=== PATIENT | female | born 1945 | race Caucasian/White ===

== ENCOUNTER 2018-10-17 19:16 | Inpatient (IN) | payer OTHER ==
[2018-10-17] MEDS ORDERED: ACETAMINOPHEN 500 MG TAB ONE (20:04)
[2018-10-17] MEDS ORDERED: HYDROCODONE/CHLORPHEN 5 ML/OSYR ONE (20:04)
[2018-10-17] MEDS ORDERED: NA CHLORIDE 0.9% 2,000 ML ONE (20:04)
[2018-10-17 20:06] LABS: Absolute Lymphocytes (CBC) 0.9 K/uL (0.7-4.9); Eosinophils % 0.1 % (0-4.4); Hematocrit 33.5 % (36.0-45.0); Lymphocytes % 6.4 % (15.3-44.8); MPV 9.4 fL (7.6-11.3); Monocytes % 5.1 % (3.3-12.3); RBC Red Blood Cell Count 3.58 M/uL (3.86-4.86)
[2018-10-17 20:12] LABS: Protime INR 1.21
[2018-10-17 20:26] LABS: ALT/SGPT 23 U/L (12-78); AST/SGOT 12 U/L (15-37); Albumin 2.7 g/dL (3.4-5.0); Alkaline Phosphatase 96 U/L (45-117); BUN Blood Urea Nitrogen 51 mg/dL (7-18); Bicarbonate 20 mmol/L (21-32); Bilirubin Direct 0.2 mg/dL (0-0.2); Bilirubin Total 0.5 mg/dL (0.2-1.0); CKMB Creatine Kinase MB < 1.0 ng/mL (0.3-3.6); Creatine Phosphokinase 90 U/L (26-192); Glucose Level 212 mg/dL (74-106); Lipase 140 U/L (73-393); Potassium 3.9 mmol/L (3.5-5.1); Protein, Total 8.2 g/dL (6.4-8.2); Sodium Level 134 mmol/L (136-145)
--- NOTE | 2018-10-17 20:37 | RAD REPORT ---
EXAM DESCRIPTION: Liza Single View10/17/2018 8:12 pm CLINICAL HISTORY: cough COMPARISON: 2013 FINDINGS: The lungs appear clear of acute infiltrate. The heart is normal size IMPRESSION: No acute abnormalities displayed
[2018-10-17] MEDS ORDERED: CEFTRIAXONE/SWI 1gm 1 GM/10 ML SYR ONE (20:40)
[2018-10-17 21:15] LABS: Urine Appearance TURBID; Urine Color YELLOW
[2018-10-17 21:16] LABS: Urine Bilirubin TRACE (NEG); Urine pH 5.5 (5.0-7.0)
[2018-10-17 21:17] LABS: Urine Glucose TRACE (NEG); Urine Microscopic Reflex ORDER UMIC
[2018-10-17 21:18] LABS: Urine Blood 2+ (NEG); Urine Protein 3+ (NEG)
[2018-10-17 21:23] LABS: Urine Amorphous Sediment 3+ /HPF (NONE SEEN); Urine Bacteria LOADED /HPF (<20); Urine Culture Reflex Order NOT NEEDED
--- NOTE | 2018-10-17 21:34 | EDPHYS ---
Physician Documentation [facility] Name: Keren Hinton Age: 72 yrs Sex: Female : 1945 Arrival Date: 10/17/2018 Time: 19:18 Bed 5 Private MD: Steve Salazar ED Physician He Dickson HPI: 10/17 20:20 This 72 yrs old Female presents to ER via Wheelchair with complaints of pm1 Cough, Fever, Weakness. 20:20 The patient or guardian reports cough. Onset: The symptoms/episode began/occurred 3 pm1 week(s) ago, and became worse 2 day(s) ago. Severity of symptoms: in the emergency department the symptoms are actually worse. Modifying factors: The symptoms are alleviated by nothing, the symptoms are aggravated by Feels generalized weakness with exertion. Associated signs and symptoms: Pertinent positives: fever, sore throat, Pertinent negatives: chest pain, diarrhea, ear ache, nausea, vomiting. The patient has not experienced similar symptoms in the past. The patient has not recently seen a physician, the patient's primary care provider is Dr. Salazar. Historical: - Allergies: 19:39 No Known Allergies; la1 - Home Meds: 19:39 metformin 1,000 mg Oral tab 1 tab 2 times per day [Active]; Synthroid 125 mcg Oral tab la1 1 tab once daily [Active]; bupropion HCl 150 mg Oral Tb24 1 tab once daily [Active]; escitalopram oxalate 10 mg oral tab 1 tab once daily [Active]; atorvastatin 10 mg oral tab 1 tab once daily [Active]; losartan 25 mg oral tab 1 tab once daily [Active]; Vascepa oral [Active]; omega-3 acid ethyl esters 1 gram oral cap [Active]; 19:39 Levemir 100 unit/mL subcutaneous soln [Active]; la1 - PMHx: 19:27 Diabetes - NIDDM; hodgkins lymphoma; colon and bladder ca; sarcoma; la1 - Immunization history:: Adult Immunizations up to date. - Social history:: Smoking status: Patient/guardian denies using tobacco. - Ebola Screening: : No symptoms or risks identified at this time. ROS: 20:20 Eyes: Negative for injury, pain, redness, and discharge. pm1 20:20 Neck: Negative for injury, pain, and swelling, Cardiovascular: Negative for chest pain, palpitations, and edema. 20:20 Abdomen/GI: Negative for abdominal pain, nausea, vomiting, diarrhea, and constipation, Back: Negative for injury and pain, : Negative for injury, bleeding, discharge, and swelling, MS/Extremity: Negative for injury and deformity, Skin: Negative for injury, rash, and discoloration, Neuro: Negative for headache, weakness, numbness, tingling, and seizure. 20:20 Constitutional: Positive for body aches, fever, poor PO intake, weight loss. 20:20 ENT: Positive for sore throat, Negative for drainage from ear(s), ear pain. 20:20 Respiratory: Positive for cough, shortness of breath, Negative for sputum production. Exam: 20:20 Head/Face: Normocephalic, atraumatic. Eyes: Pupils equal round and reactive to light, pm1 extra-ocular motions intact. Lids and lashes normal. Conjunctiva and sclera are non-icteric and not injected. Cornea within normal limits. Periorbital areas with no swelling, redness, or edema. ENT: Nares patent. No nasal discharge, no septal abnormalities noted. Tympanic membranes are normal and external auditory canals are clear. Oropharynx with no redness, swelling, or masses, exudates, or evidence of obstruction, uvula midline. Mucous membranes moist. Neck: Trachea midline, no thyromegaly or masses palpated, and no cervical lymphadenopathy. Supple, full range of motion without nuchal rigidity, or vertebral point tenderness. No Meningismus. Chest/axilla: Normal chest wall appearance and motion. Nontender with no deformity. No lesions are appreciated. Respiratory: Lungs have equal breath sounds bilaterally, clear to auscultation and percussion. No rales, rhonchi or wheezes noted. No increased work of breathing, no retractions or nasal flaring. Abdomen/GI: Soft, non-tender, with normal bowel sounds. No distension or tympany. No guarding or rebound. No evidence of tenderness throughout. Back: No spinal tenderness. No costovertebral tenderness. Full range of motion. Skin: Warm, dry with normal turgor. Normal color with no rashes, no lesions, and no evidence of cellulitis. MS/ Extremity: Pulses equal, no cyanosis. Neurovascular intact. Full, normal range of motion. 20:20 Constitutional: The patient appears in no acute distress, alert, awake, comfortable, non-diaphoretic, well developed, well hydrated, well groomed, well nourished, febrile. 20:20 Cardiovascular: Rate: tachycardic, Rhythm: regular, Pulses: no pulse deficits are appreciated, Heart sounds: normal, Edema: is not appreciated. 20:20 Neuro: Orientation: is normal, Motor: is normal, moves all fours, Sensation: is normal, no obvious gross deficits. Vital Signs: 19:27 BP 94 / 37; Pulse 133; Resp 20; Temp 101.3(O); Pulse Ox 96% on R/A; Weight 61.23 kg; la1 Height 5 ft. 5 in. (165.10 cm); 20:00 BP 143 / 55; Pulse 118; Resp 14; Pulse Ox 97% on R/A; lp1 20:30 BP 119 / 56; Pulse 110; Resp 16; Pulse Ox 97% on R/A; lp1 21:08 BP 97 / 52; Pulse 104; Resp 17; Temp 99.2(O); Pulse Ox 97% on R/A; Pain 0/10; lp1 21:52 BP 99 / 54; Pulse 105; Resp 20; Pulse Ox 95% on R/A; lp1 22:55 BP 94 / 56; Pulse 95; Resp 19; Temp 98(O); Pulse Ox 97% on R/A; Pain 0/10; lp1 23:30 BP 92 / 48; Pulse 96; Resp 20; Pulse Ox 96% on R/A; lp1 10/18 00:00 BP 92 / 50; Pulse 95; Resp 13; Pulse Ox 97% on R/A; lp1 00:30 BP 97 / 56; Pulse 92; Resp 18; Pulse Ox 97% on R/A; Pain 0/10; lp1 10/17 19:27 Body Mass Index 22.46 (61.23 kg, 165.10 cm) la1 MDM: 10/17 19:38 Patient medically screened. pm1 21:29 Data reviewed: vital signs. Data interpreted: Pulse oximetry: on room air is 97 %. pm1 Interpretation: normal. 21:29 Physician consultation: Keisha Doyle MD was called at 21:30, was contacted at 21:30, pm1 in the emergency department to see patient at 21:30. 10/17 19:40 Order name: Urine Culture pm10/17 19:40 Order name: Basic Metabolic Panel pm10/17 19:40 Order name: Blood Culture Adult (2) pm10/17 19:40 Order name: CBC with Diff; Complete Time: 20:18 pm10/17 19:40 Order name: Ckmb; Complete Time: 20:39 pm10/17 19:40 Order name: CPK; Complete Time: 20:39 pm10/17 19:40 Order name: Lactate; Complete Time: 20:55 pm10/17 19:40 Order name: LFT's; Complete Time: 20:39 pm10/17 19:40 Order name: Lipase; Complete Time: 20:39 pm10/17 19:40 Order name: Procalcitonin; Complete Time: 21:22 pm10/17 19:40 Order name: Protime (+inr); Complete Time: 20:18 pm10/17 19:40 Order name: Ptt, Activated; Complete Time: 20:18 pm10/17 19:40 Order name: Troponin (emerg Dept Use Only); Complete Time: 20:25 pm10/17 19:40 Order name: Chest Single View XRAY; Complete Time: 20:39 pm10/17 19:40 Order name: Accucheck; Complete Time: 20:00 pm10/17 19:40 Order name: Flu; Complete Time: 20:39 pm10/17 19:40 Order name: Strep; Complete Time: 20:39 pm10/17 19:43 Order name: Urine Culture EDWI 10/17 19:43 Order name: Basic Metabolic Panel; Complete Time: 20:39 EDMS 10/17 20:07 Order name: Glucose, Ancillary Testing; Complete Time: 20:08 EDMS 10/17 20:32 Order name: Throat Culture EDWI 10/17 20:47 Order name: Urinalysis; Complete Time: 21:25 lp10/17 21:19 Order name: Urine Microscopic Only; Complete Time: 21:25 EDMS 10/17 22:16 Order name: CT Chest Wo Con pm10/17 23:19 Order name: Lactate Sepsis 2 HR Follow-up; Complete Time: 23:42 EDMS 10/17 19:40 Order name: Cardiac monitoring; Complete Time: 20:00 pm1 10/17 19:40 Order name: EKG - Nurse/Tech; Complete Time: 20:01 pm1 10/17 19:40 Order name: IV Saline Lock - Large Bore; Complete Time: 20:00 pm1 10/17 19:40 Order name: Labs collected and sent; Complete Time: 20:00 pm1 10/17 19:40 Order name: O2 Per Protocol; Complete Time: 20:00 pm10/17 19:40 Order name: O2 Sat Monitoring; Complete Time: 20:00 pm1 10/17 19:40 Order name: Urine Dipstick-Ancillary (obtain specimen); Complete Time: 21:51 pm1 EC:06 Rate is 124 beats/min. Rhythm is regular, Sinus tachycardia with Right bundle branch pm1 block. No Q waves. T waves are Normal. No ST changes noted. Administered Medications: 19:50 Drug: NS 0.9% (30 ml/kg) 30 ml/kg Route: IV; Rate: bolus; Site: right antecubital; lp1 19:50 Drug: Tussionex Pennkinetic ER 5 ml Route: PO; lp1 20:47 Follow up: Response: Marked relief of symptoms lp1 19:50 Drug: Tylenol 1000 mg Route: PO; lp1 21:08 Follow up: Response: Temperature is decreased lp1 20:25 Drug: Rocephin 1 grams Route: IV; Rate: calculated rate; Site: right antecubital; lp1 20:49 Follow up: Response: No adverse reaction; IV Status: Completed infusion; IV Intake: [id number] 20:48 Drug: NS 0.9% (30 ml/kg) 30 ml/kg Route: IV; Rate: bolus; Site: right antecubital; lp1 21:51 Follow up: IV Status: Completed infusion; IV Intake: 2000ml lp1 Point of Care Testing: Blood Glucose: 19:56 Blood Glucose: 231 mg/dL; oe Ranges: Critical Glucose Levels:Adult <50 mg/dl or >400 mg/dl <40 mg/dl or >180 mg/dl Disposition: 10/18 04:28 Co-signature as Attending Physician, He Dickson MD. Disposition: 10/17/18 21:33 Hospitalization ordered by Keisha Doyle for Inpatient Admission. Preliminary diagnosis are Urosepsis, Acute kidney injury, Dehydration, Acute upper respiratory infection, unspecified. - Bed requested for Intensive Care Unit. - Status is Inpatient Admission. lp1 - Condition is Stable. - Problem is new. - Symptoms have improved. UTI on Admission? Yes Signatures: Dispatcher [employer] EDWI Kaitlin Rodriguez RN RN lp1 Toan Grigsby RN RN wa1 Mara Hickey RN RN Ilir Cervantes, SPECIAL SERVICES COORDINATOR SPECIAL SERVICES COORDINATOR pm1 He Dickson MD MD Corrections: (The following items were deleted from the chart) 10/17 19:39 19:27 Allergies: No Known Allergies; wa1 la1 21:14 19:44 UA MICROSCOPIC+U.LAB.BRZ ordered. EDWI EDWI 22:18 21:33 Hospitalization Ordered by Keisha Doyle MD for Inpatient Admission. Preliminary pm1 diagnosis is Urosepsis; Acute kidney injury; Dehydration; Acute upper respiratory infection, unspecified. Bed requested for Telemetry/MedSurg (Inpatient). Status is Inpatient Admission. Condition is Stable. Problem is new. Symptoms have improved. UTI on Admission? Yes. pm1 22:50 22:18 10/17/2018 21:33 Hospitalization Ordered by Keisha Doyle MD for Inpatient Admission. Preliminary diagnosis is Urosepsis; Acute kidney injury; Dehydration; Acute upper respiratory infection, unspecified. Bed requested for Intensive Care Unit. Status is Inpatient Admission. Condition is Stable. Problem is new. Symptoms have improved. UTI on Admission? Yes. pm1 10/18 00:40 10/17 22:50 10/17/2018 21:33 Hospitalization Ordered by Keisha Doyle MD for Inpatient lp1 Admission. Preliminary diagnosis is Urosepsis; Acute kidney injury; Dehydration; Acute upper respiratory infection, unspecified. Bed requested for Intensive Care Unit. Status is Inpatient Admission. Condition is Stable. Problem is new. Symptoms have improved. UTI on Admission? Yes.
--- NOTE | 2018-10-17 21:34 | ER ---
Nurse's Notes [facility] Name: Keren Hinton Age: 72 yrs Sex: Female : 1945 Arrival Date: 10/17/2018 Time: 19:18 Bed 5 Private MD: Steve Salazar Diagnosis: Urosepsis;Acute kidney injury;Dehydration;Acute upper respiratory infection, unspecified Presentation: 10/17 19:23 Presenting complaint: Patient states: Persistent cough for three weeks, SOB, decreased la1 appetite, malaise, fatigue. Transition of care: patient was not received from another setting of care. Onset of symptoms was October 17, 2018. Risk Assessment: Do you want to hurt yourself or someone else? Patient reports no desire to harm self or others. Initial Sepsis Screen: Does the patient meet any 2 criteria? Yes Does the patient have a suspected source of infection? Yes: Productive cough/pneumonia. Care prior to arrival: None. 19:23 Method Of Arrival: Wheelchair la1 19:23 Acuity: JOSEPH 2 la1 Historical: - Allergies: 19:39 No Known Allergies; la1 - Home Meds: 19:39 metformin 1,000 mg Oral tab 1 tab 2 times per day [Active]; Synthroid 125 mcg Oral tab la1 1 tab once daily [Active]; bupropion HCl 150 mg Oral Tb24 1 tab once daily [Active]; escitalopram oxalate 10 mg oral tab 1 tab once daily [Active]; atorvastatin 10 mg oral tab 1 tab once daily [Active]; losartan 25 mg oral tab 1 tab once daily [Active]; Vascepa oral [Active]; omega-3 acid ethyl esters 1 gram oral cap [Active]; 19:39 Levemir 100 unit/mL subcutaneous soln [Active]; la1 - PMHx: 19:27 Diabetes - NIDDM; hodgkins lymphoma; colon and bladder ca; sarcoma; la1 - Immunization history:: Adult Immunizations up to date. - Social history:: Smoking status: Patient/guardian denies using tobacco. - Ebola Screening: : No symptoms or risks identified at this time. Screenin:22 Abuse screen: Denies threats or abuse. Denies injuries from another. Nutritional lp1 screening: No deficits noted. Tuberculosis screening: No symptoms or risk factors identified. Fall Risk Total Gant Fall Scale indicates High Risk Score (45 or more points). Fall prevention measures have been instituted. Family Present and informed to notify staff if the need to leave the bedside As available patient and family educated on Fall Prevention Program and Strategies. Assessment: 20:00 General: Appears in no apparent distress. ill, Behavior is calm, cooperative, lp1 appropriate for age, Reports fever for fatigue for. Pain: Denies pain. Neuro: Level of Consciousness is awake, alert, obeys commands, Oriented to person, place, time, situation, Reports weakness generalized. Cardiovascular: Patient's skin is warm and dry. Rhythm is sinus tachycardia. Respiratory: Reports shortness of breath cough that is productive, Airway is patent Respiratory effort is even, Respiratory pattern is regular, Breath sounds are clear bilaterally. Onset: The symptoms/episode began/occurred gradually, the patient has mild shortness of breath. GI: Abdomen is non-distended. : No signs and/or symptoms were reported regarding the genitourinary system. EENT: No signs and/or symptoms were reported regarding the EENT system. Derm: Skin is intact, is thin, Skin is dry, Skin is pale, Skin temperature is warm. Musculoskeletal: No deficits noted. 20:30 Reassessment: Assisted patient to bathroom at this time for urine specimen. lp1 21:30 Reassessment: Patient appears in no apparent distress at this time. Patient and/or lp1 family updated on plan of care and expected duration. Pain level reassessed. 22:30 Reassessment: Patient appears in no apparent distress at this time. No changes from lp1 previously documented assessment. 23:30 Reassessment: Patient and daughter aware of pending admission to ICU. lp1 10/18 00:00 Reassessment: Patient appears in no apparent distress at this time. Patient resting, lp1 eyes closed, respirations unlabored. Vital Signs: 10/17 19:27 BP 94 / 37; Pulse 133; Resp 20; Temp 101.3(O); Pulse Ox 96% on R/A; Weight 61.23 kg; la1 Height 5 ft. 5 in. (165.10 cm); 20:00 BP 143 / 55; Pulse 118; Resp 14; Pulse Ox 97% on R/A; lp1 20:30 BP 119 / 56; Pulse 110; Resp 16; Pulse Ox 97% on R/A; lp1 21:08 BP 97 / 52; Pulse 104; Resp 17; Temp 99.2(O); Pulse Ox 97% on R/A; Pain 0/10; lp1 21:52 BP 99 / 54; Pulse 105; Resp 20; Pulse Ox 95% on R/A; lp1 22:55 BP 94 / 56; Pulse 95; Resp 19; Temp 98(O); Pulse Ox 97% on R/A; Pain 0/10; lp1 23:30 BP 92 / 48; Pulse 96; Resp 20; Pulse Ox 96% on R/A; lp1 10/18 00:00 BP 92 / 50; Pulse 95; Resp 13; Pulse Ox 97% on R/A; lp1 00:30 BP 97 / 56; Pulse 92; Resp 18; Pulse Ox 97% on R/A; Pain 0/10; lp1 10/17 19:27 Body Mass Index 22.46 (61.23 kg, 165.10 cm) la1 ED Course: 10/17 19:18 Patient arrived in ED. as 19:19 Steve Salazar MD is Private Physician. as 19:26 Triage completed. la1 19:26 Arm band placed on left wrist. la1 19:32 Ilir Cervantes, JOE is PHCP. pm1 19:32 He Dickson MD is Attending Physician. pm1 19:59 Kaitlin Rodriguez, LANIE is Primary Nurse. lp1 20:00 Patient has correct armband on for positive identification. Placed in gown. Bed in low lp1 position. Call light in reach. personnel monitor on. Pulse ox on. NIBP on. 20:12 Chest Single View XRAY In Process Unspecified. EDMS 20:46 Notified Nurse Practitioner and/or Physician Product Picker of a critical lab result(s), fc Lactate 3.3. 20:51 No provider procedures requiring assistance completed. lp1 21:32 Keisha Doyle MD is Hospitalizing Provider. pm1 21:50 Patient admitted, IV remains in place. lp1 22:50 CT completed. Patient tolerated procedure well. Patient moved to CT via stretcher. eh Patient moved back from CT. Administered Medications: 19:50 Drug: NS 0.9% (30 ml/kg) 30 ml/kg Route: IV; Rate: bolus; Site: right antecubital; lp1 19:50 Drug: Tussionex Pennkinetic ER 5 ml Route: PO; lp1 20:47 Follow up: Response: Marked relief of symptoms lp1 19:50 Drug: Tylenol 1000 mg Route: PO; lp1 21:08 Follow up: Response: Temperature is decreased lp1 20:25 Drug: Rocephin 1 grams Route: IV; Rate: calculated rate; Site: right antecubital; lp1 20:49 Follow up: Response: No adverse reaction; IV Status: Completed infusion; IV Intake: [id number] 20:48 Drug: NS 0.9% (30 ml/kg) 30 ml/kg Route: IV; Rate: bolus; Site: right antecubital; lp1 21:51 Follow up: IV Status: Completed infusion; IV Intake: 2000ml lp1 Point of Care Testing: Blood Glucose: 19:56 Blood Glucose: 231 mg/dL; oe Ranges: Intake: 20:49 IV: 10ml; Total: 10ml. lp1 21:51 IV: 2000ml; Total: 2010ml. lp1 21:52 IV: 2000ml (IV Fluid); Total: 4010ml. lp1 Outcome: 21:33 Decision to Hospitalize by Provider. pm1 21:50 Condition: stable lp1 21:50 Instructed on the need for admit. 10/18 00:00 Admitted to ICU accompanied by nurse, accompanied by tech, via stretcher, room 2, on lp1 monitor, with chart, Report called to LANIE Carney 00:40 Patient left the ED. lp1 Signatures: Dispatcher [employer] EDLauri Campos Felicia, RN RN fc Martinez, Amelia as Pena, Laura, RN RN lp1 Toan Grigsby RN RN la1 Ilir Cervantes, JOE STORES DESPATCH HAND pm1 Teto Prince oe Corrections: (The following items were deleted from the chart) 10/17 19:39 19:27 Allergies: No Known Allergies; md1 la
--- NOTE | 2018-10-17 22:37 | P.HP ---
Certification for Inpatient Patient admitted to: Inpatient With expected LOS: >2 Midnights Practitioner: I am a practitioner with admitting privileges, knowledge of patient current condition, hospital course, and medical plan of care. Services: Services provided to patient in accordance with Admission requirements found in Title 42 Section 412.3 of the Code of Federal Regulations Patient History Date of Service: 10/17/18 Reason for admission: sepsis History of Present Illness: Ms Hinton is a 72 years old woman with history of Hodgkins lymphoma, CKD, Colon cancer, HTN, DM II, who start about 3 weeks with upper respiratory symptoms. She had productive cough with whitish secretions. She was gradually getting worse over the time, she had poor appetite and also loss some weight in the last week. The patient got even worse in the last 48 Hr, denied fever but had chills. Lab work shows leukocytosis, elevated lactate and procalcitonin. Her creatinine was elevated as well, abnormal UA consistent with UTI. CXR shows no acute abnormalities. She presented to ED febrile, max temp was 101.3 F, BP on the lower side, tachycardic. At my encounter, her BP was 97/48, after received about 3 L or NS already. - Past Medical/Surgical History -: DM II -: HTN -: HX of Hodgkins Lymphoma -: Colon cancer -: sarcoma Past Surgical History: Reviewed- Non-Contributory - Family History Family History: Reviewed- Non-Contributory - Social History Smoking Status: Former smoker Alcohol use: No CD- Drugs: No Place of Residence: Home Review of Systems 10-point ROS is otherwise unremarkable Physical Examination - Physical Exam General: Alert, In no apparent distress, Other (pale) HEENT: Atraumatic, PERRLA, Mucous membr. moist/pink, EOMI, Sclerae nonicteric Neck: Supple, 2+ carotid pulse no bruit, No LAD, Without JVD or thyroid abnormality Respiratory: Normal air movement, Diminished (left base) Cardiovascular: Regular rate/rhythm, Normal S1 S2 Gastrointestinal: Normal bowel sounds, No tenderness Musculoskeletal: No tenderness Integumentary: No rashes Neurological: Normal speech, Normal strength at 5/5 x4 extr, Normal tone, Normal affect Lymphatics: No axilla or inguinal lymphadenopathy - Studies Laboratory Data (last 24 hrs) 10/17/18 19:50: PT 14.2 H, INR 1.21, APTT 30.1 10/17/18 19:50: WBC 13.6 H, Hgb 11.4 L, Hct 33.5 L, Plt Count 221 10/17/18 19:50: Sodium 134 L, Potassium 3.9, BUN 51 H, Creatinine 3.07 H, Glucose 212 H, Total Bilirubin 0.5, AST 12 L, ALT 23, Alkaline Phosphatase 96, Lipase 140 Microbiology Data (last 24 hrs): 10/17/18 19:58 Throat Group A Streptococcus Rapid Screen - Final 10/17/18 19:58 Nasopharnyx Influenza Type A Antigen Screen - Final 10/17/18 19:58 Nasopharnyx Influenza Type B Antigen Screen - Final Assessment and Plan - Problems (Diagnosis) (1) Sepsis Current Visit: Yes Status: Acute Qualifiers: Sepsis type: sepsis due to unspecified organism Qualified Code(s): A41.9 - Sepsis, unspecified organism (2) UTI (urinary tract infection) Current Visit: Yes Status: Acute Qualifiers: Urinary tract infection type: acute cystitis Hematuria presence: without hematuria Qualified Code(s): N30.00 - Acute cystitis without hematuria (3) Acute bronchitis Current Visit: Yes Status: Acute Qualifiers: Bronchitis organism: unspecified organism Qualified Code(s): J20.9 - Acute bronchitis, unspecified (4) Diabetes mellitus Current Visit: Yes Status: Acute Qualifiers: Diabetes mellitus type: type 2 Diabetes mellitus alf insulin use: with alf use Diabetes mellitus complication status: with other specified complication Qualified Code(s): E11.69 - Type 2 diabetes mellitus with other specified complication; Z79.4 - custodial (current) use of insulin - Plan Will admit Ms Hinton to ICU due to sepsis, BP is on the lower side, she needs close monitoring. Will start empiric broad spectrum antibiotics for UTI and possible respiratory infection. Pending CT chest. Continue IV fluids. Eventually will need vasopressors. - Advance Directives Does patient have a Living Will: No Does patient have a Durable POA for Healthcare: No - Code Status/Comfort Care Code Status Assessed: Yes Code Status: Full Code Critical Care: Yes (30)
[2018-10-17] MEDS ORDERED: ACETAMINOPHEN 500 MG TAB PO PRN (23:18)
[2018-10-17] MEDS ORDERED: ONDANSETRON 4 MG/2 ML VIAL IV PRN (23:18)
[2018-10-17] MEDS ORDERED: ALBUTEROL 2.5 MG/3 ML NEB SOL NEB PRN (23:18)
[2018-10-17] MEDS ORDERED: IPRATROPIUM BROM 0.5MG/2.5ML NEB PRN (23:18)
[2018-10-17] MEDS: NA CHLORIDE 0.9% 1,000 ML IV SCH (23:35)
[2018-10-18] MEDS: INSULIN -REGULAR HUMAN 50 UNIT/0.5 ML ML SQ SCH ×5 (02:25→22:57)
[2018-10-18] MEDS: guaiFENesin 100 MG/5 ML UCUP PO PRN (04:00)
[2018-10-18 05:26] LABS: Absolute Lymphocytes (CBC) 0.9 K/uL (0.7-4.9); Basophils % 0.3 % (0-1.3); Eosinophils % 0.6 % (0-4.4); Hematocrit 30.2 % (36.0-45.0); Lymphocytes % 8.6 % (15.3-44.8); MPV 9.3 fL (7.6-11.3); Monocytes % 3.5 % (3.3-12.3); RBC Red Blood Cell Count 3.21 M/uL (3.86-4.86)
[2018-10-18 05:44] LABS: Potassium 4.2 mmol/L (3.5-5.1)
[2018-10-18 06:09] LABS: Blood Morphology Comment NOT SEEN (NOT SEEN); Platelet Estimate ADEQ
[2018-10-18] MEDS ORDERED: INSULIN -REGULAR HUMAN 50 UNIT/0.5 ML ML SQ SCH (07:30)
[2018-10-18] MEDS: NA CHLORIDE 0.9% 1,000 ML IV SCH ×3 (07:46→22:30)
[2018-10-18] MEDS ORDERED: GLUCAGON 1 MG/VIAL IM PRN (08:52)
[2018-10-18] MEDS ORDERED: D50W 25 GM/50 ML SYRINGE IV PRN (08:52)
[2018-10-18] MEDS ORDERED: CEFTRIAXONE 1 GM/NS 50 ML 1 GM/50 ML BAG IV SCH (09:00)
[2018-10-18] MEDS ORDERED: INSULIN DETEMIR 54 UNIT SQ SCH (09:00)
[2018-10-18] MEDS: HEPARIN 5000 UNIT/ML 1 ML VIAL SQ SCH ×2 (09:04→22:57)
[2018-10-18] MEDS: CEFTRIAXONE/SWI 1gm 1 GM/10 ML SYR IVP SCH (09:05)
[2018-10-18] MEDS: AZITHROMYCIN IV 500 MG in NA CHLORIDE 0.9% 250 ML IVPB SCH (09:05)
[2018-10-18] MEDS: BUPROPION HCL XL 150 MG TAB PO SCH (09:05)
[2018-10-18] MEDS: INSULIN GLARGINE 100 UNITS/ML SQ SCH ×2 (09:05→22:56)
[2018-10-18] MEDS: ESCITALOPRAM 20 MG TAB PO SCH (09:05)
--- NOTE | 2018-10-18 10:01 | EKG ---
Test Date: 2018-10-17 Test Time: 19:58:47 Food Consultant: ABDIRAHMAN MEASUREMENT RESULTS: Intervals: Rate: 124 MD: 150 QRSD: 106 QT: 334 QTc: 479 [place]: P: 65 MD: 150 QRS: 45 T: 24 INTERPRETIVE STATEMENTS: Sinus tachycardia Incomplete right bundle branch block Borderline ECG Compared to ECG 01/20/2010 00:36:30 Incomplete right bundle-branch block now present Sinus rhythm no longer present Electronically Signed On 10-18-18 10:00:36 CDT by Christian Haro
--- NOTE | 2018-10-18 14:10 | P.CNS ---
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 pt presented for weakness and flu like symptoms in ER hypotensive and t 101.3 pt was complaining of productive cough , CXR with no abnormalities Cr was elevated to 3.1 , UA +ve for protein and blood, pt denied NSAID and contrast exposure , recently switched from Lovaza to another Vascpa No chest pain, palpitation, diarrhea or constipation , Allergies No Known Allergies Allergy (Unverified 10/17/18 23:18) Home Medications: Atorvastatin Calcium [Lipitor] 10 mg PO BEDTIME 10/18/18 Bupropion HCl [Wellbutrin Xl] 150 mg PO DAILY 10/18/18 Escitalopram [Lexapro] 10 mg PO DAILY 10/18/18 Icosapent Ethyl [Vascepa] 2 cap PO BID 10/18/18 Insulin Detemir [Levemir Flextouch] 54 units SQ BID 10/18/18 Levothyroxine [Synthroid*] 0.125 mg PO DAILY 10/18/18 Losartan Potassium 1 tab PO DAILY 10/18/18 Metformin HCl 1,000 mg PO BID 10/18/18 - Past Medical/Surgical History Diabetic: Yes -: DM II -: HTN -: HX of Hodgkins Lymphoma -: Colon cancer -: sarcoma -: tubal ligation -: hysterectomy -: sarcoma removed left upper back -: breat augmentation - Social History Alcohol use: Yes CD- Drugs: No Caffeine use: Yes Place of Residence: Home Physical Examination Temp Pulse Resp BP Pulse Ox 97.4 F 125 H 35 H 107/52 L 97 10/18/18 04:00 10/18/18 11:00 10/18/18 11:00 10/18/18 11:00 10/18/18 08:00 General: Oriented x3, Mild distress HEENT: Atraumatic Neck: Supple, JVD not distended, Without JVD or thyroid abnormality Respiratory: Clear to auscultation bilaterally, Normal air movement Cardiovascular: No edema, Normal pulses, Regular rate/rhythm, No gallops, No rubs, No murmurs Gastrointestinal: Normal bowel sounds, Soft and benign Musculoskeletal: No swelling Laboratory Data (last 24 hrs) 10/17/18 19:50: PT 14.2 H, INR 1.21, APTT 30.1 10/17/18 19:50: WBC 13.6 H, Hgb 11.4 L, Hct 33.5 L, Plt Count 221 10/17/18 19:50: Sodium 134 L, Potassium 3.9, BUN 51 H, Creatinine 3.07 H, Glucose 212 H, Total Bilirubin 0.5, AST 12 L, ALT 23, Alkaline Phosphatase 96, Lipase 140 - Problems (1) GUMARO (acute kidney injury) Current Visit: Yes Status: Acute (2) Diabetes mellitus Current Visit: Yes Status: Chronic Qualifiers: Diabetes mellitus type: type 2 Diabetes mellitus tank terminal gauger insulin use: with longterm use Diabetes mellitus complication status: with other specified complication Qualified Code(s): E11.69 - Type 2 diabetes mellitus with other specified complication; Z79.4 - long term care social worker (current) use of insulin Conclusions/Impression: GUMARO on CKD III Likely due to septic GN and prerenal azotemia + ARB off ARB will order renal US and UPC will order full serology W/U Cont IVF renal dose meds avoid nephrotoxic meds no need for renal replacement therapy at this time , but pt might require HD if RFt cont to worse Discussed with Pt Septic shock with bandemia Ucx +ve Cont Abx HTN off BP meds cont IVF DM off metformin Cont insulin
[2018-10-18 14:22] LABS: Uric Acid 6.9 mg/dL (2.6-6.0)
--- NOTE | 2018-10-18 18:04 | PN ---
Date of Progress Note: 10/18/2018 Subjective: The patient is seen and examined. Chart reviewed, and case discussed with RN. The patient is doing better. Still tachycardic. Medications: List reviewed. Code status: Full Physical Examination: Vital Signs: T-max is 101.3, T current is 97.4, heart rate 126, respirations 20 , blood pressure 122/51, O2 97% on room air. General: Awake, alert, oriented x3. Elderly female, in some mild distress. CV: S1, S2. Sinus tachycardia. Peripheral pulses present. Respiratory: Moving air well bilaterally. No wheezing or stridor. Gastrointestinal: Abdomen is soft, nontender, nondistended. Positive bowel sounds. Extremities: No clubbing, cyanosis, or edema. No calf tenderness. Neuro: Cranial nerves 2 through 12 intact grossly. No focal neurological deficit. Speech is normal. Skin: No rashes. Normal skin turgor. Laboratory Data: Sodium 141, potassium 4.2 chloride 111, CO2 22, BUN 55, creatinine 3.11, glucose 247, calcium 7.7, magnesium 2.1. WBC 10.6, H and H 10.6/30.2, platelets 181, neutrophils 87%, bands 9. Cultures; urine culture growing 100,000 colony-forming units of 4+ gram-negative rods. Blood cultures are pending. CT scan of the chest shows normal contrast-enhanced CT scan of the chest. Mild fibrosis and/or atelectasis in the dependent portions of the lungs and lingula. Assessment And Plan: 1. Sepsis secondary to gram-negative rods, secondary to urinary tract infection, improving. The patient is still tachycardic. Blood pressure is more stable. We will continue with IV antibiotics. Follow up on final culture results. 2. Acute cystitis without hematuria secondary to gram-negative rods. We will follow up on ID and sensitivity. Continue IV antibiotics. 3. Acute bronchitis. CT scan of the chest does show some fibrosis and/or atelectasis. No infiltrates. We will start on incentive spirometer. 4. Diabetes mellitus type 2 with long-term use of insulin with hyperglycemia. We will continue sliding scale insulin. Monitor blood glucose levels. 5. History of Hodgkin lymphoma, colon cancer and sarcoma. 6. Deep venous thrombosis prophylaxis with Lovenox. 7. Acute on chronic kidney disease. Kidney functions elevated to 3.11, trending up. Baseline seems to be around 1.6. We will consult the patient's Nephrology. Avoid NSAIDs. Continue with IV fluids. /FAIZAN Voice ID: [id number] Report ID: [id number] MTDD
--- NOTE | 2018-10-18 20:19 | RAD REPORT ---
EXAM DESCRIPTION: US - Renal Ultrasound-Complete - 10/18/2018 8:07 pm CLINICAL HISTORY: GUMARO Flank pain COMPARISON: <Comparisons> FINDINGS: Both kidneys are normal in size, shape and echotexture. The right kidney measures 12.1 x 6.3 x 5.3 cm. No hydronephrosis, focal mass or perinephric fluid. Sm all parapelvic cyst present. The left kidney measures 12.4 x 6.1 x 5.2 cm. No hydronephrosis, focal mass or perinephric fluid. Sma ll parapelvic cyst present. The urinary bladder is incompletely distended without gross abnormality seen. IMPRESSION: Unremarkable renal sonogram.
[2018-10-18] MEDS: ATORVASTATIN 10 MG TAB PO SCH (22:55)
[2018-10-19 04:44] LABS: Absolute Lymphocytes (CBC) 0.6 K/uL (0.7-4.9); Basophils % 0.2 % (0-1.3); Eosinophils % 0.8 % (0-4.4); Hematocrit 26.8 % (36.0-45.0); Lymphocytes % 5.9 % (15.3-44.8); MPV 9.2 fL (7.6-11.3); Monocytes % 7.2 % (3.3-12.3); RBC Red Blood Cell Count 2.87 M/uL (3.86-4.86)
[2018-10-19] MEDS: LEVOTHYROXINE SOD 0.125 MG TAB PO SCH (04:56)
[2018-10-19 05:14] LABS: Albumin 2.1 g/dL (3.4-5.0); Bilirubin Total 0.3 mg/dL (0.2-1.0); Potassium 3.4 mmol/L (3.5-5.1); Protein, Total 6.6 g/dL (6.4-8.2)
[2018-10-19 06:47] LABS: Rheumatoid Factor NEG (NEG)
[2018-10-19] MEDS ORDERED: POTASSIUM CL SA 10 MEQ TAB PO ONE (07:00)
[2018-10-19 07:08] LABS: Urine Protein/Creatinine Ratio 2.21 ratio (<0.15)
[2018-10-19] MEDS: INSULIN -REGULAR HUMAN 50 UNIT/0.5 ML ML SQ SCH ×4 (07:30→21:00)
[2018-10-19] MEDS: HEPARIN 5000 UNIT/ML 1 ML VIAL SQ SCH ×2 (09:20→21:41)
[2018-10-19] MEDS: CEFTRIAXONE/SWI 1gm 1 GM/10 ML SYR IVP SCH (09:28)
[2018-10-19] MEDS: ESCITALOPRAM 20 MG TAB PO SCH (09:28)
[2018-10-19] MEDS: INSULIN GLARGINE 100 UNITS/ML SQ SCH ×2 (09:29→21:00)
--- NOTE | 2018-10-19 11:30 | RAD REPORT ---
EXAM DESCRIPTION: CT chest without IV contrast CLINICAL HISTORY: 72-year-old female with cough and fever TECHNIQUE: Axial CT imaging of the chest was performed without the administration of intravenous c ontrast. Sagittal and coronal reconstructed images were then performed. The CT study is performed acc ording to ALARA (as low as reasonably achievable) or ALARA/IMAGE GENTLY, with automatic adjustment of mA and/or kV according to patient size. Performed on: 10/17/2018 at 10:45 PM COMPARISON: None. FINDINGS: CT CHEST: Lungs: The lungs are well expanded and are grossly clear. There is mild fibrosis and/or atelectasis i n the dependent portions of the lungs and lingula. There are no pleural effusions. There is no eviden ce of a pneumothorax. No dense airspace consolidation is identified Heart: The heart is normal in size. There is no pericardial effusion. Mediastinum: The mediastinum is unremarkable. The mediastinal vessels are normal in caliber and con tour. There are minimal atherosclerotic calcifications along the thoracic aorta. No significant coron kamar artery calcifications are identified. Bones: No acute osseous abnormalities are identified. There are chronic mild to moderate degenerative changes of the thoracic spine. Soft tissues: No acute soft tissue abnormalities are identified. There are peripherally calcified rere ateral prepectoral breast implants. Lymphadenopathy: No pathologic hilar, mediastinal or axillary lymphadenopathy is identified. Upper abdomen: No acute abnormalities are identified within the visualized portions of the upper abdo men. There is a very small hiatal hernia. IMPRESSION: 1. Normal contrast enhanced CT scan of the chest 2. Mild fibrosis and/or atelectasis in the dependent portions of the lungs and lingula. Electronically signed by: Antonella Grove DO 10/17/2018 11:20 PM CDT Due to temporary technical issues with the PACS/Fluency reporting system, reports are being signed by the in house radiologist as a courtesy to ensure prompt reporting. The interpreting radiologist is f ully responsible for the content of the report.
[2018-10-19] MEDS: BUPROPION HCL XL 150 MG TAB PO SCH (11:50)
[2018-10-19] MEDS: ICOSAPENT ETHYL 1 GM CAP PO SCH ×2 (11:51→21:00)
[2018-10-19] MEDS: AZITHROMYCIN IV 500 MG in NA CHLORIDE 0.9% 250 ML IVPB SCH (11:51)
[2018-10-19] MEDS: NA CHLORIDE 0.9% 1,000 ML IV SCH (11:54)
[2018-10-19] MEDS: guaiFENesin 100 MG/5 ML UCUP PO PRN ×2 (17:37→21:43)
[2018-10-19] MEDS: ATORVASTATIN 10 MG TAB PO SCH (21:41)
--- NOTE | 2018-10-20 03:22 | PN ---
Date of Progress Note: 10/19/2018 Chief Complaint: Chronic kidney disease, stage 3. The patient came to the hospital because of weakness, flu-like symptoms. She was hypotensive and she had high-grade fever. She was complaining of productive cough. She was found to have acute kidney injury on chronic kidney disease, nonoliguric, moderately severe to severe associated with renal hypo perfusion and hypovolemia. The patient was found to have creatinine of 3.1. Urinalysis showed prote inuria and positive blood. She denies nonsteroidal anti-inflammatory medication. Denies contrast ex posure. Review of Systems: Today, the patient denies fever, chills. Denies nausea, vomiting. Physical Examination: Lungs: Clear to auscultation bilaterally. Heart: S1, S2. Abdomen: Soft, benign. Extremities: Slight edema. Impression: Acute on chronic kidney injury. BUN 51, creatinine 3.07. Electrolytes as follows: Sod ium 134, potassium 3.9. The patient was taken off metformin. The patient is not a candidate for met formin. Continue to monitor metabolic clearance. Plan: 1.Check ultrasound to rule out hydronephrosis. 2.Avoid nephrotoxic medication. Continue IV fluids to treat acute kidney injury. Septic shock with bandemia. Continue antibiotics. Adjust antibiotic dose to renal function. 3.Chronic kidney disease secondary to diabetes and hypertension. The patient will continue insulin. The patient was taken off metformin. She is not a candidate for metformin due to chronic kidney disease and acute kidney injur yShantanu CABELLO/MODGogo Voice ID: [id number] Report ID: [id number]
[2018-10-20] MEDS: LEVOTHYROXINE SOD 0.125 MG TAB PO SCH (06:46)
[2018-10-20] MEDS: NA CHLORIDE 0.9% 1,000 ML IV SCH ×2 (06:48→17:00)
[2018-10-20 06:55] LABS: ALT/SGPT 78 U/L (12-78); AST/SGOT 83 U/L (15-37); BUN Blood Urea Nitrogen 33 mg/dL (7-18); Bicarbonate 21 mmol/L (21-32); Bilirubin Total 0.3 mg/dL (0.2-1.0); Glucose Level 67 mg/dL (74-106); Potassium 3.9 mmol/L (3.5-5.1); Protein, Total 6.8 g/dL (6.4-8.2); Sodium Level 145 mmol/L (136-145)
[2018-10-20 07:00] LABS: Alkaline Phosphatase ND U/L (45-117)
[2018-10-20] MEDS: INSULIN -REGULAR HUMAN 50 UNIT/0.5 ML ML SQ SCH ×4 (07:30→21:47)
[2018-10-20] MEDS: INSULIN GLARGINE 100 UNITS/ML SQ SCH ×2 (09:00→10:17)
[2018-10-20] MEDS: ESCITALOPRAM 20 MG TAB PO SCH (10:16)
[2018-10-20] MEDS: CEFTRIAXONE/SWI 1gm 1 GM/10 ML SYR IVP SCH ×2 (10:16→20:10)
[2018-10-20] MEDS: AZITHROMYCIN IV 500 MG in NA CHLORIDE 0.9% 250 ML IVPB SCH (10:17)
[2018-10-20] MEDS: ICOSAPENT ETHYL 1 GM CAP PO SCH ×2 (10:17→21:44)
[2018-10-20] MEDS: HEPARIN 5000 UNIT/ML 1 ML VIAL SQ SCH ×2 (10:19→20:12)
[2018-10-20] MEDS: ALBUTEROL 2.5 MG/3 ML NEB SOL NEB PRN ×2 (14:15→19:37)
[2018-10-20] MEDS: IPRATROPIUM BROM 0.5MG/2.5ML NEB PRN ×2 (14:15→19:37)
[2018-10-20] MEDS ORDERED: ALBUTEROL 2.5 MG/3 ML NEB SOL NEB STA (14:39)
[2018-10-20] MEDS ORDERED: IPRATROPIUM BROM 0.5MG/2.5ML NEB STA (14:40)
[2018-10-20] MEDS: BUPROPION HCL XL 150 MG TAB PO SCH (15:01)
[2018-10-20] MEDS: guaiFENesin 100 MG/5 ML UCUP PO PRN ×2 (15:01→22:42)
[2018-10-20] MEDS: CIPROFLOXACIN 400mg IV 400 MG/200 ML BAG IV SCH ×2 (15:02→20:09)
[2018-10-20] MEDS: ATORVASTATIN 10 MG TAB PO SCH (20:10)
[2018-10-20] MEDS ORDERED: POTASSIUM CL SA 10 MEQ TAB PO ONE (21:00)
--- NOTE | 2018-10-21 00:58 | PN ---
Date of Progress Note: 10/20/2018 Chief Complaint: Acute on chronic kidney injury. Subjective: The patient has acute on chronic kidney injury, nonoliguric, associated with prerenal az otemia, nonoliguric, ATN. Primarily creatinine was up to 3.07 and BUN 51. Baseline creatinine is 1. 2. The patient is started on IV fluids to control renal hypoperfusion and to treat acute kidney inju ry. The patient was found to have E coli bacteremia. Urine culture showed E coli. The patient is s tarted on Cipro for urosepsis. Ultrasound was done and did not show hydronephrosis. Review of Systems: The patient denies fever, chills. Physical Examination: Lungs: Clear to auscultation bilaterally. Heart: S1, S2. Abdomen: Soft, benign. Extremities: Slight edema. Lab Work: Hemoglobin is 9.3. WBC improved from 13.6 to 9.7. Platelet count is 163,000. Urinalysis showed leukocyturia, WBC TNTC, RBC 5-10, nitrites negative, leukocyte esterase positive. Urine cult ure showed E coli. Serology tests are pending for vasculitis. Urine protein-creatinine ratio is 2.21 pending urine protein electrophoresis and serum protein electr ophoresis. Impression And Plan: 1.Acute on chronic kidney injury, nonoliguric, moderately severe. Continue IV fluids. 2.Urosepsis. The patient will continue antibiotics and adjustment on antibiotics was done according to urine culture. Continue current treatment. 3.Hematuria, microscopic. Pending serologies to screen for vasculitis. 4.Proteinuria. The patient will have workup to rule out monoclonal gammopathy of unknown significan ce. 5.Acute on chronic kidney injury. Monitor blood pressure. JOSE CARLOS inhibitor on hold. Adjust blood pre ssure medication according to blood pressure logs. 6.Deconditioning. Physical therapy per primary team. EB/MODL Voice ID: [id number] Report ID: [id number]
[2018-10-21] MEDS: NA CHLORIDE 0.9% 1,000 ML IV SCH ×2 (00:59→16:50)
[2018-10-21 04:32] LABS: HBsAG Nonreactive (Nonreactive)
[2018-10-21] MEDS: LEVOTHYROXINE SOD 0.125 MG TAB PO SCH (06:07)
[2018-10-21] MEDS: guaiFENesin 100 MG/5 ML UCUP PO PRN (06:07)
[2018-10-21] MEDS: INSULIN -REGULAR HUMAN 50 UNIT/0.5 ML ML SQ SCH ×4 (07:30→21:00)
--- NOTE | 2018-10-21 08:33 | PN ---
Date of Progress Note: 10/20/2018 Subjective: Patient states she is feeling little bit stronger today. Her appetite has improved. He r blood sugars have remained below 100 therefore, her normal insulin will be held. She can continue on her sliding scale. Her creatinine has improved somewhat as well. She has been followed by Nephro lamin due to the positive E. coli in the blood. Infectious Disease will also be consulted and antibio tics will be changed. q.12 with the addition of Cipro IV b.i.d. Inhalation therapy will a lso be started as patient continues with a nonproductive dry cough. Expected will be another day or 2 on the above-outlined regimen before the patient's creatinine will come to baseline which is in the 1.7 range and tolerate oral antibiotics. HR/MODL Voice ID: [id number] Report ID: [id number]
[2018-10-21] MEDS: ICOSAPENT ETHYL 1 GM CAP PO SCH ×2 (09:47→22:18)
[2018-10-21] MEDS: CIPROFLOXACIN 400mg IV 400 MG/200 ML BAG IV SCH ×2 (09:48→22:15)
[2018-10-21] MEDS: BUPROPION HCL XL 150 MG TAB PO SCH ×2 (09:48→22:17)
[2018-10-21] MEDS: CEFTRIAXONE/SWI 1gm 1 GM/10 ML SYR IVP SCH (09:49)
[2018-10-21] MEDS: ESCITALOPRAM 20 MG TAB PO SCH (09:49)
[2018-10-21] MEDS: HEPARIN 5000 UNIT/ML 1 ML VIAL SQ SCH ×2 (09:49→22:16)
--- NOTE | 2018-10-21 12:39 | P.PN ---
Subjective Date of Service: 10/21/18 Chief Complaint: sepsis Subjective: Improving Pt with urosepsis and GUMARO on ckd toaday Asymptomatic stable VS ID: change Abx to cipro POP cleared for discharge from nephrology point of view Physical Examination - Vital Signs Temperature: 97.2 F Blood Pressure: 133/62 Pulse: 92 Respirations: 18 Pulse Ox (%): 97 - Physical Exam General: In no apparent distress, Oriented x3 HEENT: Atraumatic Neck: Supple, Without JVD or thyroid abnormality Respiratory: Clear to auscultation bilaterally, Normal air movement Cardiovascular: No edema, Regular rate/rhythm, Normal S1 S2, No gallops, No rubs , No murmurs Gastrointestinal: Normal bowel sounds, Soft and benign Assessment And Plan - Current Problems (Diagnosis) (1) GUMARO (acute kidney injury) Current Visit: Yes Status: Acute (2) Diabetes mellitus Current Visit: Yes Status: Chronic Qualifiers: Diabetes mellitus type: type 2 Diabetes mellitus assistant terminal manager insulin use: with snf use Diabetes mellitus complication status: with other specified complication Qualified Code(s): E11.69 - Type 2 diabetes mellitus with other specified complication; Z79.4 - [facility]PC (current) use of insulin - Plan GUMARO on CKD III improving Likely due to septic GN and prerenal azotemia + ARB off ARB Cont IVF renal dose meds avoid nephrotoxic meds Septic shock with bandemia E.coli bacteremia with UTI HTN controlled off BP meds cont IVF DM off metformin Cont insulin
[2018-10-21 14:34] VITALS: BMI 23.1
--- NOTE | 2018-10-21 15:10 | CON ---
Subjective: This is a 72-year-old female. I was consulted for sepsis, bacteremia, and urinary tract infection. The patient has E. coli growing, currently on Rocephin and Cipro. The patient on antibiotics for urinary tract infection and fever of 101.3. Denies any other problems. Also had some productive cough with whitish sputum. No bloody urine or any other problem. She had elevated lactate and procalcitonin. Past Medical History: Diabetes mellitus, hypertension, Hodgkin's lymphoma 20 years ago colon cancer, sarcoma 2 years ago. Past Surgical History: As per HPI. Social History: Nonsmoker, nondrinker. Family History: Noncontributory. Current Medications: Rocephin and Cipro. See MAR for other medications. Allergies: REPORT NO KNOWN DRUG ALLERGIES. Review of Systems: A 10-point review was performed. Physical Examination: General: This is a 72-year-old female, lying in bed, not in any acute cardiopulmonary distress. Vital Signs: Temperature 97.2, pulse 92, respirations 18, blood pressure 133/ 62. HEENT: Unremarkable. Neck: Supple. Lungs: Basal crackles. Heart: S1, S2. Regular. Abdomen: Soft, nontender. Bowel sounds present. Extremities: No edema. Laboratory Data: Shows WBC 9.7, down from 13.6; platelets are 163, hemoglobin 9.3. Chemistry shows sodium 145, potassium 3.9, chloride 117, bicarb 31, BUN 33 , creatinine 2.13, glucose is 67. Micro report shows the patient has E. coli from the blood culture of 10/17 and urine cultures of 10/17. Assessment And Plan: Bacteremia; urinary tract infection; sepsis, improving. Leukocytosis has resolved. We will recommend to continue Cipro, which can be switched to oral on discharge and keep the dose to half its strength, total course of 2 weeks. Repeat urine in 2 weeks' time. Follow up at primary care doctor. Thank you for consult. JOURDAN/FAIZAN Voice ID: [id number] Report ID: [id number] KARLA
[2018-10-21] MEDS: LACTOBACILLUS/ACIDOPHILUS TAB PO SCH (22:16)
[2018-10-21] MEDS: ATORVASTATIN 10 MG TAB PO SCH (22:17)
[2018-10-22 05:43] LABS: Albumin, (SPE) 2.3 g/dL (3.8-4.8); Alpha-1-Globulins 0.5 g/dL (0.2-0.3); Gamma Globulins 0.8 g/dL (0.8-1.7); INTERPRETATION REPORT
[2018-10-22] MEDS: NA CHLORIDE 0.9% 1,000 ML IV SCH (06:16)
[2018-10-22] MEDS: LEVOTHYROXINE SOD 0.125 MG TAB PO SCH (06:16)
[2018-10-22 06:31] LABS: Potassium 4.9 mmol/L (3.5-5.1)
[2018-10-22] MEDS: INSULIN -REGULAR HUMAN 50 UNIT/0.5 ML ML SQ SCH ×4 (08:22→20:40)
[2018-10-22] MEDS: ESCITALOPRAM 20 MG TAB PO SCH (08:22)
[2018-10-22] MEDS: LACTOBACILLUS/ACIDOPHILUS TAB PO SCH ×2 (08:22→20:32)
[2018-10-22] MEDS: HEPARIN 5000 UNIT/ML 1 ML VIAL SQ SCH ×2 (08:23→20:31)
[2018-10-22] MEDS: CIPROFLOXACIN 400mg IV 400 MG/200 ML BAG IV SCH (08:23)
[2018-10-22] MEDS: ICOSAPENT ETHYL 1 GM CAP PO SCH ×2 (08:29→20:41)
--- NOTE | 2018-10-22 11:24 | P.PN ---
Subjective Date of Service: 10/22/18 Chief Complaint: sepsis Patient seen and examined at bedside with RN. Chart reviewed. Case discussed with primary care provider. Patient currently doing better. Overnight her sugars have been and consistent with elevated as high as 262 lowest at 114. Currently on sliding scale moderate. Denies having any fever chills nausea vomiting. Review of Systems 10-point ROS is otherwise unremarkable Physical Examination - Vital Signs Temperature: 97.7 F Blood Pressure: 114/65 Pulse: 87 Respirations: 18 Pulse Ox (%): 97 - Physical Exam General: Alert, In no apparent distress HEENT: Atraumatic, PERRLA, EOMI Neck: Supple, JVD not distended Respiratory: Clear to auscultation bilaterally, Normal air movement Cardiovascular: Regular rate/rhythm, Normal S1 S2 Gastrointestinal: Normal bowel sounds, No tenderness Musculoskeletal: No tenderness Integumentary: No rashes Neurological: Normal speech, Normal tone, Normal affect Lymphatics: No axilla or inguinal lymphadenopathy - Studies Medications List Reviewed: Yes Assessment And Plan - Current Problems (Diagnosis) (1) Sepsis Current Visit: Yes Status: Acute Plan: Sepsis most likely secondary to urinary tract infection versus bacteremia. Resolved now -currently on IV Rocephin -urine culture positive for E. coli and blood culture also positive for E. coli -was switched to oral Levaquin for 14 days Qualifiers: Sepsis type: sepsis due to unspecified organism Qualified Code(s): A41.9 - Sepsis, unspecified organism (2) UTI (urinary tract infection) Current Visit: Yes Status: Acute Plan: see # 1 Qualifiers: Urinary tract infection type: acute cystitis Hematuria presence: without hematuria Qualified Code(s): N30.00 - Acute cystitis without hematuria (3) Diabetes mellitus Current Visit: Yes Status: Chronic Plan: Patient with type 2 diabetes - Patient currently using long-acting insulin 50 units at home. However here has been having low insulin requirements -was switched to moderate sliding scale from mild last night. Blood sugar still consistent with hyperglycemia and hypoglycemia -will monitor patient for the next 24 hr here in the hospital. If the patient' s sugars normalizes she could be discharged home at that time with sliding scale insulin. -insulin has been called to the pharmacy already per primary care providers recommendations. Qualifiers: Diabetes mellitus type: type 2 Diabetes mellitus nursing home insulin use: with terminal system operator use Diabetes mellitus complication status: with other specified complication Qualified Code(s): E11.69 - Type 2 diabetes mellitus with other specified complication; Z79.4 - [facility]DC (current) use of insulin - Plan Pending clinical improvement at this time. Will monitor blood sugars for next 24 hr. Will adjust the sliding scale accordingly. Discharge Plan: Home Plan to discharge in: 48 Hours - Code Status/Comfort Care Code Status Assessed: Yes Critical Care: No
[2018-10-22] MEDS: BUPROPION HCL XL 150 MG TAB PO SCH (20:31)
[2018-10-22] MEDS: ATORVASTATIN 10 MG TAB PO SCH (20:31)
[2018-10-22] MEDS: CIPROFLOXACIN HCL 500 MG TAB PO SCH (20:32)
[2018-10-22] MEDS: guaiFENesin 100 MG/5 ML UCUP PO PRN (20:40)
--- NOTE | 2018-10-22 22:28 | PN ---
Date of Progress Note: 10/21/2018 Chief Complaint: Acute on chronic kidney injury. Renal function is improving. The patient was foun d to have E coli urosepsis. She is undergoing treatment with antibiotics. Review of Systems: The patient is feeling better. Laboratory Data: Lungs: Clear to auscultation bilaterally. Heart: S1 and S2. Abdomen: Soft, benign. Extremities: No edema. Vital Signs: Blood pressure 124/61, heart rate 88, temperature 97.6. Impression And Plan: 1.Acute on chronic kidney injury. Continue IV fluids and monitor electrolytes and renal function. 2.Urinary tract infection. Continue antibiotics. 3.Diabetes mellitus, per primary team. 4.Hypertension. Blood pressure controlled. Continue current treatment. DESTINEY/FAIZAN Voice ID: [id number] Report ID: [id number]
[2018-10-23] MEDS: LEVOTHYROXINE SOD 0.125 MG TAB PO SCH (05:32)
[2018-10-23] MEDS: ESCITALOPRAM 20 MG TAB PO SCH (08:38)
[2018-10-23] MEDS: CIPROFLOXACIN HCL 500 MG TAB PO SCH (08:38)
[2018-10-23] MEDS: LACTOBACILLUS/ACIDOPHILUS TAB PO SCH (08:38)
[2018-10-23] MEDS: HEPARIN 5000 UNIT/ML 1 ML VIAL SQ SCH (08:39)
[2018-10-23] MEDS: INSULIN -REGULAR HUMAN 50 UNIT/0.5 ML ML SQ SCH ×2 (08:39→13:28)
[2018-10-23] MEDS: ICOSAPENT ETHYL 1 GM CAP PO SCH (08:41)
[2018-10-23 09:12] LABS: Magnesium 1.8 mg/dL (1.8-2.4); Potassium 4.6 mmol/L (3.5-5.1)
--- NOTE | 2018-10-23 11:16 | P.DS ---
Admission Date: 10/17/18 Discharge Date: 10/23/18 Primary Care Provider: Dr. Salazar ( I am covering) Disposition: ROUTINE DISCHARGE Discharge Condition: GOOD Reason for Admission: sepsis Consultations: Nephrology-Dr. Lindsey Procedures: CT chest: FINDINGS: CT CHEST: Lungs: The lungs are well expanded and are grossly clear. There is mild fibrosis and/or atelectasis in the dependent portions of the lungs and lingula. There are no pleural effusions. There is no evidence of a pneumothorax. No dense airspace consolidation is identified Heart: The heart is normal in size. There is no pericardial effusion. Mediastinum: The mediastinum is unremarkable. The mediastinal vessels are normal in caliber and contour. There are minimal atherosclerotic calcifications along the thoracic aorta. No significant coronary artery calcifications are identified. Bones: No acute osseous abnormalities are identified. There are chronic mild to moderate degenerative changes of the thoracic spine. Soft tissues: No acute soft tissue abnormalities are identified. There are peripherally calcified bilateral prepectoral breast implants. Lymphadenopathy: No pathologic hilar, mediastinal or axillary lymphadenopathy is identified. Upper abdomen: No acute abnormalities are identified within the visualized portions of the upper abdomen. There is a very small hiatal hernia. IMPRESSION: 1. Normal contrast enhanced CT scan of the chest 2. Mild fibrosis and/or atelectasis in the dependent portions of the lungs and lingula. Renal ultrasound: FINDINGS: Both kidneys are normal in size, shape and echotexture. The right kidney measures 12.1 x 6.3 x 5.3 cm. No hydronephrosis, focal mass or perinephric fluid. Small parapelvic cyst present. The left kidney measures 12.4 x 6.1 x 5.2 cm. No hydronephrosis, focal mass or perinephric fluid. Small parapelvic cyst present. The urinary bladder is incompletely distended without gross abnormality seen. IMPRESSION: Unremarkable renal sonogram. Medical Problem List: Sepsis secondary to UTI with bacteremia, blood and urine culture positive for E coli Diabetes mellitus type 2, insulin-dependent Acute on chronic renal disease, stage III Hypertension Hypothyroidism Depression with anxiety Hyperlipidemia History of Hodgkin's lymphoma/colon cancer Brief History of Present Illness: 72-year-old female presented to the emergency room with poor appetite , shortness of breath. Patient found to have elevated lactate and pro calcitonin with abnormal UA consistent of sepsis related to UTI. Chest x-ray unremarkable. Patient was admitted for treatment. Hospital Course: Patient found to have sepsis secondary to UTI with bacteremia. During the course of her stay her condition improved. Urine culture and blood culture positive for E coli. Patient was transition to oral medication. At discharge patient will continue with Cipro 500 mg 1 pill twice daily for 10 days. Recommend to recheck urine and blood culture after that time to monitor resolution. Patient will follow up with PCP on Friday to follow up this hospitalization. Patient with diabetes mellitus type 2, insulin-dependent. During the course of her stay. This remained stable. Metformin has been discontinued due to her acute on chronic renal failure. Nephrology was consulted. At discharge she will continue with Levemir 54 units subcu twice daily. Metformin currently discontinued. Recommend follow up with PCP to further address. Patient with acute on chronic renal disease, stage III. Patient evaluated by nephrology. Medications were adjusted and discontinued due to her renal function. Metformin and losartan were discontinued due to this. At discharge metformin and losartan to remain on hold. Recommend no further use of nonsteroidal anti-inflammatories. Future medications will need to be renally dosed. Recommend to recheck lab-BMP in 1-2 weeks to follow up this hospitalization. Recommend follow up with nephrology in 1-2 weeks at that time to follow up this hospitalization to continue her care. Patient with hypertension. As mentioned above, losartan has been discontinued due to her renal function. Blood pressure remained stable off medication. Recommend to maintain blood pressures less than 150/80. If blood pressures remain above 150 systolic, she is to contact her PCP for further recommendation. If her renal function improves losartan may be able to be re- initiated. This can be further addressed by a nephrology. Patient with hypothyroidism. At discharge she will continue with her medication -levothyroxine 125 mcg daily. Patient with hyperlipidemia. At discharge she will continue with her medications of Lipitor 10 mg daily and Vascepa 2 g 1 pill twice daily. Patient with depression and anxiety. Patient will continue with Wellbutrin 150 mg XL daily and Lexapro 10 mg daily. Vital Signs/Physical Exam: Temp Pulse Resp BP Pulse Ox 97.9 F 92 H 18 138/65 97 10/23/18 08:00 10/23/18 08:00 10/23/18 08:00 10/23/18 08:00 10/23/18 08:00 General: Alert, In no apparent distress, Oriented x3, Cooperative HEENT: Atraumatic Neck: Supple Respiratory: Clear to auscultation bilaterally, Normal air movement Cardiovascular: Normal pulses, Regular rate/rhythm Gastrointestinal: Normal bowel sounds, Soft and benign, Non-distended Musculoskeletal: No erythema, No tenderness, No warmth Integumentary: No erythema, No warmth, No cyanosis Neurological: Normal speech, Normal strength at 5/5 x4 extr, Normal tone, Normal affect Laboratory Data at Discharge: WBC 9.7 K/uL (4.3-10.9) 10/19/18 04:27 Hgb 9.3 g/dL (12.0-15.0) L 10/19/18 04:27 Hct 26.8 % (36.0-45.0) L 10/19/18 04:27 Plt Count 163 K/uL (152-406) 10/19/18 04:27 PT 14.2 SECONDS (9.5-12.5) H 10/17/18 19:50 INR 1.21 10/17/18 19:50 APTT 30.1 SECONDS (24.3-36.9) 10/17/18 19:50 Sodium 139 mmol/L (136-145) 10/23/18 08:49 Potassium 4.6 mmol/L (3.5-5.1) 10/23/18 08:49 BUN 27 mg/dL (7-18) H 10/23/18 08:49 Creatinine 1.84 mg/dL (0.55-1.3) H 10/23/18 08:49 Glucose 257 mg/dL (74-106) H 10/23/18 08:49 Uric Acid 5.9 mg/dL (2.6-6.0) 10/19/18 04:27 Magnesium 1.8 mg/dL (1.8-2.4) 10/23/18 08:49 Total Bilirubin 0.3 mg/dL (0.2-1.0) 10/20/18 05:20 AST 83 U/L (15-37) H 10/20/18 05:20 ALT 78 U/L (12-78) 10/20/18 05:20 Alkaline Phosphatase ND 10/20/18 05:20 Lipase 140 U/L (73-393) 06/29/19 19:50 Home Medications: Atorvastatin Calcium [Lipitor*] 10 mg PO BEDTIME 10/18/18 Bupropion HCl [Wellbutrin Xl] 150 mg PO DAILY 10/18/18 Escitalopram [Lexapro*] 10 mg PO DAILY 10/18/18 Icosapent Ethyl [Vascepa] 2 cap PO BID 10/18/18 Insulin Detemir [Levemir Flextouch] 54 units SQ BID 10/18/18 Levothyroxine [Synthroid*] 0.125 mg PO DAILY 10/18/18 Insulin Aspart [Novolog] See Protocol SQ ACHS #1 vial 10/21/18 Syringe,Needle,Insuln,Sf 0.5ML [Safetyglide Insulin Syringe] 1 each ACHS #90 disp.syrin 10/21/18 Ciprofloxacin HCl [Cipro 500 MG Tablet] 500 mg PO BID #20 tab 10/23/18 New Medications: Ciprofloxacin HCl [Cipro 500 MG Tablet] 500 mg PO BID #20 tab Insulin Aspart [Novolog] See Protocol SQ ACHS #1 vial Syringe,Needle,Insuln,Sf 0.5ML [Safetyglide Insulin Syringe] 1 each ACHS #90 disp.syrin Patient Discharge Instructions: 1. Recommend follow up with her PCP within 1 week to follow up this hospitalization. 2. Patient found to have sepsis secondary to UTI with bacteremia. During the course of her stay her condition improved. Urine culture and blood culture positive for E coli. Patient was transition to oral medication. At discharge patient will continue with Cipro 500 mg 1 pill twice daily for 10 days. Recommend to recheck urine and blood culture after that time to monitor resolution. Patient will follow up with PCP on Friday to follow up this hospitalization. 3. Patient with diabetes mellitus type 2, insulin-dependent. During the course of her stay. This remained stable. Metformin has been discontinued due to her acute on chronic renal failure. Nephrology was consulted. At discharge she will continue with Levemir 54 units subcu twice daily. Metformin currently discontinued. Recommend follow up with PCP to further address. 4. Patient with acute on chronic renal disease, stage III. Patient evaluated by nephrology. Medications were adjusted and discontinued due to her renal function. Metformin and losartan were discontinued due to this. At discharge metformin and losartan to remain on hold. Recommend no further use of nonsteroidal anti- inflammatories. Future medications will need to be renally dosed. Recommend to recheck lab-BMP in 1-2 weeks to follow up this hospitalization. Recommend follow up with nephrology in 1-2 weeks at that time to follow up this hospitalization to continue her care. 5. Patient with hypertension. As mentioned above, losartan has been discontinued due to her renal function. Blood pressure remained stable off medication. Recommend to maintain blood pressures less than 150/80. If blood pressures remain above 150 systolic, she is to contact her PCP for further recommendation. If her renal function improves losartan may be able to be re-initiated. This can be further addressed by a nephrology. 6. Patient with hypothyroidism. At discharge she will continue with her medication-levothyroxine 125 mcg daily. 7. Patient with hyperlipidemia. At discharge she will continue with her medications of Lipitor 10 mg daily and Vascepa 2 g 1 pill twice daily. 8. Patient with depression and anxiety. Patient will continue with Wellbutrin 150 mg XL daily and Lexapro 10 mg daily. Diet: Renal (1999 ADA) Activity: Fall precautions Followup: Steve Salazar MD [Primary Care Provider] - Time spent managing pt's care (in minutes): 55
--- NOTE | 2018-10-23 11:18 | P.PN ---
Subjective Date of Service: 10/23/18 Primary Care Provider: Dr. Salazar ( I am covering) Chief Complaint: sepsis Subjective: Improving Pt with urosepsis and GUMARO on ckd toaday Asymptomatic stable VS to cont PO cipro for total of 2wks cleared for discharge from nephrology point of view Physical Examination - Vital Signs Temperature: 97.9 F Blood Pressure: 138/65 Pulse: 92 Respirations: 18 Pulse Ox (%): 97 - Physical Exam General: In no apparent distress, Oriented x3 HEENT: Atraumatic Neck: Supple, Without JVD or thyroid abnormality Respiratory: Clear to auscultation bilaterally, Normal air movement Cardiovascular: No edema, Regular rate/rhythm, Normal S1 S2, No gallops, No rubs , No murmurs Gastrointestinal: Normal bowel sounds, Soft and benign Musculoskeletal: No swelling - Studies Medications List Reviewed: Yes Assessment And Plan - Current Problems (Diagnosis) (1) GUMARO (acute kidney injury) Current Visit: Yes Status: Acute (2) Diabetes mellitus Current Visit: Yes Status: Chronic Qualifiers: Qualified Code(s): E11.69 - Type 2 diabetes mellitus with other specified complication; Z79.4 - [facility] (current) use of insulin - Plan GUMARO on CKD III improving , Likely due to septic GN and prerenal azotemia + ARB off ARB Cont IVF renal dose meds avoid nephrotoxic meds Septic shock with bandemia E.coli bacteremia with UTI Po cipro for total of 2wks HTN controlled off BP meds cont IVF DM off metformin Cont insulin
[2018-10-23 16:12] LABS: P-ANCA Anti-Myeloperoxidase Ab <1.0 AI (<1.0)
[2018-10-23 16:12] LABS: HIV AG/AB 4TH GEN Non-reactive (Non-reactive)
[2018-10-23 16:37] VITALS: BP 133/59; TEMP 97.2
--- NOTE | 2018-10-23 16:55 | PN ---
Subjective: The patient is being discharged today. No new acute event. Chart reviewed. Feeling mu ch better. Objective: Vital Signs: Temperature 97.9, pulse 92, respiration 18, blood pressure 138/65. Lungs: Clear to auscultation. Heart: S1, S2. Regular. Abdomen: Soft, nontender. Bowel sounds present. Extremities: No edema. Laboratory Data: No new labs available for today. Urine and blood cultures grew E coli. Assessment And Plan: Urinary tract infection, sepsis, and bacteremia. The patient is being discharg ed on antibiotic, total course of 2 weeks. We will follow the patient as needed. NF/MODL Voice ID: [id number] Report ID: [id number]
[2018-10-23 18:18] VITALS: O2SAT 96
--- NOTE | 2018-10-27 11:29 | PN ---
Date of Progress Note: 10/22/2018 Chief Complaint: Acute on chronic kidney injury. Renal function is improving. The patient was foun d to have E coli urosepsis. She is undergoing treatment with antibiotics. Review of Systems: The patient is feeling better. Physical Examination: Lungs: Clear to auscultation bilaterally. Heart: S1 and S2. Abdomen: Soft, benign. Extremities: No edema. Vital Signs: Blood pressure 124/61, heart rate 88, temperature 97.6. Impression And Plan: 1.Acute on chronic kidney injury. Continue IV fluids and monitor electrolytes and renal function. 2.Urinary tract infection. Continue antibiotics. 3.Diabetes mellitus, per primary team. 4.Hypertension. Blood pressure controlled. Continue current treatment. DESTINEY/FAIZAN Voice ID: [id number] Report ID: [id number]
== END 2018-10-23 16:42 | disposition home or self-care (01) | DRG 871 ==
LOC: ER 19:16 → ERHOLD 22:18 → 3RD-ICU 10-18 00:08 → 4TH 10-18 11:30
PROVIDERS: ADMIT Internal Medicine; ATTEND Internal Medicine
DX: A41.51 Sepsis due to Escherichia coli [E. coli] (principal); R65.21 Severe sepsis with septic shock; N30.00 Acute cystitis without hematuria; N17.9 Acute kidney failure, unspecified; I12.9 Hypertensive chronic kidney disease with stage 1 through stage 4 chronic kidney disease, or unspecified chronic kidney disease; E11.22 Type 2 diabetes mellitus with diabetic chronic kidney disease; N18.3 Chronic kidney disease, stage 3 (moderate); E03.9 Hypothyroidism, unspecified; F41.8 Other specified anxiety disorders; E78.5 Hyperlipidemia, unspecified; Z85.71 Personal history of Hodgkin lymphoma; Z85.038 Personal history of other malignant neoplasm of large intestine; J20.9 Acute bronchitis, unspecified
CPT/HCPCS: 36415; 71045; 71250; 76770; 80048; 80053; 80076; 81003; 81015; 82550; 82553; 82570; 82962; 83520; 83605; 83690; 83735; 83970; 84132; 84145; 84156; 84165; 84484; 84550; 85025; 85610; 85730; 86021; 86038; 86160; 86317; 86334; 86430; 86705; 86706; 86803; 87040; 87070; 87077; 87081; 87086; 87088; 87186; 87205; 87340; 87389; 87804; 93005; 94640; 94760; 96365; 99285; J0456; J0696; J0744; J1644; J7030

== ENCOUNTER 2021-10-04 10:17 | Emergency (ER) | payer OTHER ==
--- OUTSIDE RECORDS SUMMARY | 2021-10-04 10:20 | XMS REPORT | Continuity of Care Document ---
:1945 Author Organization [facility] t Address [address] [place] [address] Care Team Providers Name Role Phone YULIANA Attending Clinician Unavailable FLACO Attending Clinician Unavailable LENNY MIRANDA Attending Clinician Unavailable YULIANA Attending Clinician Unavailable FLACO Attending Clinician Unavailable LENNY MIRANDA Admitting Clinician Unavailable Payers Payer Name Policy Type Policy Number Effective Date Expiration Date S renée [employer] MEDICARE PPO [id number] 2013 00:00:00 Problems Condition Condition Condition Status Onset Resolution Last Treating Co mments Source Name Details Category Date Date Treatment Clinician Date Diabetes Diabetes Disease Active UT mellitus, mellitus, 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 00:00: 00 CKD CKD Disease Active UT (chronic (chronic 08-22 Health kidney kidney 00:00: disease) disease) 00 History of History of Disease Active 2020- U T head and head and 08-22 Health neck neck 00:00: radiation radiation 00 Hypothyroi Hypothyroi Disease Active U T dism dism 08-22 Health 00:00: 00 Microalbum Microalbum Disease Active 2020-0 U T inuria inuria 08-22 Health 00:00: 00 Personal Personal Disease Active 2020-0 UT 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 00 CKD CKD Problem Active UT (chronic (chronic Physic i kidney kidney ans disease) disease) Diabetes Diabetes Problem Active UT mellitus, mellitus, 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 Social History Social Habit Start Date Stop Date Quantity Comments Source Exposure to Not sure [facility] SARS-CoV-2 (event) Tobacco Comment 2020-12-12 2020-12-12 Quit 40 years ago [facility] 00:00:00 00:00:00 Tobacco use and 2020-12-12 2020-12-12 Never used [facility] exposure 00:00:00 00:00:00 Alcohol intake 2020-12-12 2020-12-12 Current drinker of [facility] 00:00:00 00:00:00 alcohol (finding) Alcohol Comment 2020-09-07 2020-09-07 rarely [facility] 00:00:00 00:00:00 Sex [birth year] [facility] 00:00:00 00:00:00 Smoking Status Start Date Stop Date Source Former smoker 2020-12-12 00:00:00 2020-12-12 00:00:00 [facility] Medic[facility] Ordered Filled Start Stop Current Ordering Indication Dosage Frequency Signature Comments Components Source Medication Medication Date Date Medication? Clinician (SIG) Name Name losartan 2020- No 50mg 50 mg. UT (Cozaar) 50 12-12 Health MG tablet 18:48: 00:00 43 :00 Icosapent 2020- No TAKE 2 UT Ethyl 12-12 CAPSULE [facility] (Vascepa) 1 18:22: 00:00 TWICE g capsule 29 :00 DAILY Ascorbic 2020- No UT Acid 12-12 Health (vitamin C) 18:22: 00:00 250 MG 23 :00 tablet insulin 2021- No [id number] 20U Inject 20 UT aspart 12-12 Units Health (NovoLOG) 00:00: 04:59 under the 100 UNIT/ML 00 :00 skin 3 injection (three) times a day before meals. insulin 2021- No [id number] 60U Q.5D Inject 60 UT detemir 8-24 08-25 Units Health (Levemir 00:00: 04:59 under the FlexTouch) 00 :00 skin 2 100 UNIT/ML (two) injection times a day. BD Pen Yes [id number] USE UT Needle Jane 6-14 DIRECTED Heal th 2nd Gen 32G 00:00: WITH X 4 MM misc 00 INSULIN PENS TWICE DAILY. BD Pen Yes [id number] USE UT Needle Jane 6-14 DIRECTED Heal th 2nd Gen 32G 00:00: WITH X 4 MM misc 00 INSULIN PENS TWICE DAILY. BD Pen Yes [id number] USE UT Needle Jane 6-14 DIRECTED Heal th 2nd Gen 32G 00:00: WITH X 4 MM misc 00 INSULIN PENS TWICE DAILY. SUPER B Yes UT COMPLEX & C 5-26 Health tablet 20:34: 20 levothyroxi Yes TAKE ONE UT ne 5-26 (1) Health (Synthroid, 20:34: TABLET(S) Levoxyl) 20 BY MOUTH 125 MCG ONCE A DAY tablet DIRECTED. Multiple Yes UT Vitamins-Mi 5-26 Health nerals 20:34: (Hair/Skin/ 20 Nails/Bioti n) tablet Multiple Yes UT Vitamins-Mi 5-26 Health nerals 20:34: (Multi For 20 Her 50+) tablet SUPER B Yes UT COMPLEX & C 5-26 Health tablet 20:34: 20 levothyroxi Yes TAKE ONE UT ne 5-26 (1) Health (Synthroid, 20:34: TABLET(S) Levoxyl) 20 BY MOUTH 125 MCG ONCE A DAY tablet DIRECTED. Multiple Yes UT Vitamins-Mi 5-26 Health nerals 20:34: (Hair/Skin/ 20 Nails/Bioti n) tablet Multiple 2020-0 Yes UT Vitamins-Mi 5-26 Health nerals 20:34: (Multi For 20 Her 50+) tablet SUPER B Yes UT COMPLEX & C 5-26 Health tablet 20:34: 20 Ascorbic 0 Yes UT Acid 5-26 Health (vitamin C) 20:34: 250 MG 20 tablet Icosapent Yes TAKE 2 UT Ethyl 5-26 CAPSULE Health (Vascepa) 1 20:34: TWICE g capsule 20 DAILY levothyroxi Yes TAKE ONE UT ne 5-26 (1) Health (Synthroid, 20:34: TABLET(S) Levoxyl) 20 BY MOUTH 125 MCG ONCE A DAY tablet DIRECTED. losartan Yes 50mg 50 mg. UT (Cozaar) 50 5-26 Health MG tablet 20:34: 20 Multiple Yes UT Vitamins-Mi 5-26 Health nerals 20:34: (Hair/Skin/ 20 Nails/Bioti n) tablet Multiple Yes UT Vitamins-Mi 5-26 Health nerals 20:34: (Multi For 20 Her 50+) tablet SUPER B Yes UT COMPLEX & C 5-26 Health tablet 20:34: 20 Ascorbic Yes UT Acid 5-26 Health (vitamin C) 20:34: 250 MG 20 tablet Icosapent Yes TAKE 2 UT Ethyl 5-26 CAPSULE Health (Vascepa) 1 20:34: TWICE g capsule 20 DAILY levothyroxi Yes TAKE ONE UT ne 5-26 (1) Health (Synthroid, 20:34: TABLET(S) Levoxyl) 20 BY MOUTH 125 MCG ONCE A DAY tablet DIRECTED. losartan Yes 50mg 50 mg. UT (Cozaar) 50 5-26 Health MG tablet 20:34: 20 Multiple Yes UT Vitamins-Mi 5-26 Health nerals 20:34: (Hair/Skin/ 20 Nails/Bioti n) tablet Multiple Yes UT Vitamins-Mi 5-26 Health nerals 20:34: (Multi For 20 Her 50+) tablet SUPER B Yes UT COMPLEX & C 5-26 Health tablet 20:34: 20 Ascorbic Yes UT Acid 5-26 Health (vitamin C) 20:34: 250 MG 20 tablet Icosapent Yes TAKE 2 UT Ethyl 5-26 CAPSULE Health (Vascepa) 1 20:34: TWICE g capsule 20 DAILY levothyroxi Yes TAKE ONE UT ne 5-26 (1) Health (Synthroid, 20:34: TABLET(S) Levoxyl) 20 BY MOUTH 125 MCG ONCE A DAY tablet DIRECTED. losartan Yes 50mg 50 mg. UT (Cozaar) 50 5-26 Health MG tablet 20:34: 20 Multiple 2020-0 Yes UT Vitamins-Mi 5-26 Health nerals 20:34: (Hair/Skin/ 20 Nails/Bioti n) tablet Multiple 2020-0 Yes UT Vitamins-Mi 5-26 Health nerals 20:34: (Multi For 20 Her 50+) tablet Continuous Yes [id number] 1{each} 1 each 4 UT Blood Gluc 5-26 (four) Health Wirer Passenger Car 00:00: times a (FreeStyle 00 day Mariano 14 (before Day [place]) meals and device nightly). insulin pen Yes [id number] Use to UT needle (B-D 5-26 inject 1-4 He alth ULTRAFINE 00:00: times III SHORT 00 daily as PEN) 31G X directed 8 mm misc Continuous Yes [id number] Wear for UT Blood Gluc 5-26 14 days. Healt h Sensor 00:00: (FreeStyle 00 Mariano 14 Day Sensor) misc Continuous Yes [id number] 1{each} 1 each 4 UT Blood Gluc 5-26 (four) Health [employer] Car 00:00: times a (FreeStyle 00 day Mariano 14 (before Day [place]) meals and device nightly). insulin pen Yes [id number] Use to UT needle (B-D 5-26 inject 1-4 He alth ULTRAFINE 00:00: times III SHORT 00 daily as PEN) 31G X directed 8 mm misc Continuous Yes [id number] Wear for UT Blood Gluc 5-26 14 days. Healt h Sensor 00:00: (FreeStyle 00 Mariano 14 Day Sensor) misc Continuous Yes [id number] 1{each} 1 each 4 UT Blood Gluc 5-26 (four) Health [employer] Car 00:00: times a (FreeStyle 00 day Mariano 14 (before Day [place]) meals and device nightly). insulin pen Yes [id number] Use to UT needle (B-D 5-26 inject 1-4 He alth ULTRAFINE 00:00: times III SHORT 00 daily as PEN) 31G X directed 8 mm misc Continuous Yes [id number] Wear for UT Blood Gluc 5-26 14 days. Healt h Sensor 00:00: (FreeStyle 00 Mariano 14 Day Sensor) misc Continuous Yes [id number] 1{each} 1 each 4 UT Blood Gluc 5-26 (four) Health [employer] Car 00:00: times a (FreeStyle 00 day Mariano 14 (before Day [place]) meals and device nightly). insulin pen Yes [id number] Use to UT needle (B-D 5-26 inject 1-4 He alth ULTRAFINE 00:00: times III SHORT 00 daily as PEN) 31G X directed 8 mm misc Continuous Yes [id number] Wear for UT Blood Gluc 5-26 14 days. Healt h Sensor 00:00: (FreeStyle 00 Mariano 14 Day Sensor) [facility] insulin 2021- No [id number] 10U Inject 10 UT aspart 5-26 05-27 Units Health (NovoLOG) 00:00: 04:59 under the 100 UNIT/ML 00 :00 skin 3 injection (three) times a day before meals. insulin 2021- No [id number] 10U Inject 10 UT aspart 5-26 05-27 Units Health (NovoLOG) 00:00: 04:59 under the 100 UNIT/ML 00 :00 skin 3 injection (three) times a day before meals. insulin 2020- No [id number] 10U Inject 10 UT aspart 5-26 08-24 Units Health (NovoLOG) 00:00: 00:00 under the 100 UNIT/ML 00 :00 skin 3 injection (three) times a day before meals. Multiple Yes UT Vitamins-Mi 5-20 Health nerals 20:01: (Multi For 24 Her 50+) tablet SUPER B Yes UT COMPLEX & C 5-20 Health tablet 20:01: 23 Ascorbic Yes UT Acid 5-20 Health (vitamin C) 20:01: 250 MG 23 tablet Icosapent Yes TAKE 2 UT Ethyl 5-20 CAPSULE Health (Vascepa) 1 20:01: TWICE g capsule 23 DAILY levothyroxi Yes TAKE ONE UT ne 5-20 (1) Health (Synthroid, 20:01: TABLET(S) Levoxyl) 23 BY MOUTH 125 MCG ONCE A DAY tablet DIRECTED. losartan Yes 50mg 50 mg. UT (Cozaar) 50 5-20 Health MG tablet 20:01: 23 Multiple Yes UT Vitamins-Mi 5-20 Health nerals 20:01: (Hair/Skin/ 23 Nails/Bioti n) tablet insulin 2019-04 Yes INJECT 55 UT detemir 1-09 UNIT Every [facility] (Levemir 00:00: twelve FlexTouch) 00 hours 100 UNIT/ML injection insulin 2019-04 Yes INJECT 55 UT detemir 1-09 UNIT [facility] (Levemir 00:00: twelve FlexTouch) 00 hours 100 UNIT/ML injection insulin 2019-04 Yes INJECT 55 UT detemir 1-09 UNIT [facility] (Levemir 00:00: twelve FlexTouch) 00 hours 100 UNIT/ML injection insulin 2019-04 Yes INJECT 55 UT detemir 1-09 UNIT [facility] (Levemir 00:00: twelve FlexTouch) 00 hours 100 UNIT/ML injection Levemir Levemir 2019-04 Yes JEERL 55 Q12H INJECT 55 UT FlexTouch FlexTouch 1-09 [place] UNIT Every Physici 100 UNIT/ML 100 UNIT/ML 00:00: M.D. twelve ans Subcutaneou Subcutaneou 00 hours s Solution s Solution Pen-injecto Pen-injecto r r insulin 2019-04- No INJECT 55 UT detemir 1-09 08-24 UNIT Every [facility]alt [facility] (Levemir 00:00: 00:00 twelve FlexTouch) 00 :00 hours 100 UNIT/ML injection Insulin Pen 2018-04 Yes Use as UT Needle (BD 2-18 directed Healt h Pen Needle 00:00: with Jane U/F) 00 insulin 32G X 4 MM pens twice misc daily. Insulin Pen 2018-04 Yes Use as UT Needle (BD 2-18 directed Healt h Pen Needle 00:00: with Jane U/F) 00 insulin 32G X 4 MM pens twice misc daily. Insulin Pen 2018-04 Yes Use as UT Needle (BD 2-18 directed Healt h Pen Needle 00:00: with Jane U/F) 00 insulin 32G X 4 MM pens twice misc daily. BD Pen BD Pen 2018-04 Yes JEREL Use as UT Needle Jane Needle Jane 2-18 [place]ILL directed Physici U/F 32G X 4 U/F 32G X 4 00:00: M.D. with ans MM MM 00 insulin pens twice daily. Insulin Pen 2018-04- No Use as UT Needle (BD 218 14 directed Heal th Pen Needle 00:00: 00:00 with Jane U/F) 00 :00 insulin 32G X 4 MM pens twice misc daily. Vascepa 1 Vascepa 1 Yes 2 Q0.5D TAKE 2 UT GM Oral GM Oral CAPSULE Physic i Capsule Capsule TWICE ans DAILY Losartan Losartan Yes TAKE 1 UT Potassium Potassium TABLET BY Physici 50 MG Oral 50 MG Oral MOUTH an s Tablet Tablet DAILY DIRECTED Super B Super B Yes UT Complex/C Complex/C Physi ci TABS TABS ans Vitamin C Vitamin C Yes UT TABS TABS Physici ans Levothyroxi Levothyroxi Yes JEREL TAKE ONE UT ne Sodium ne Sodium CARHILL (1) Ph ysici 125 MCG 125 MCG M.D. TABLET(S) ans Oral Tablet Oral Tablet BY MOUTH ONCE A DAY DIRECTED. Multi For Multi For Yes UT Her 50+ Her 50+ Physici Oral Tablet Oral Tablet a ns Hair/Skin/N Hair/Skin/N Yes U T ails/Biotin ails/Biotin P hysici TABS TABS ans Vital Signs Vital Name Observation Time Observation Value Comments Source Systolic blood 2020-12-12 18:12:00 120 mm[Hg] UT Hea l[facility] pressure Diastolic blood 2020-12-12 18:12:00 75 mm[Hg] UT He alth pressure Heart rate 2020-12-12 18:12:00 99 /min UT [facility] Body temperature 2020-12-12 18:12:00 36.22 Holly [facility] Body weight 2020-12-12 18:12:00 [facility] 2020-12-12 18:12:00 23.06 [facility] 2020-09-13 20:31:00 146 mm[Hg] UT Hea lth pressure Diastolic blood 2020-09-13 20:31:00 81 mm[Hg] UT He alth pressure Heart rate 2020-09-13 20:31:00 102 /min [facility] 2020-09-13 20:31:00 36.28 Holly [facility] Body height 2020-09-13 20:31:00 165.1 cm [facility]alt h Body weight 2020-09-13 20:31:00 62.596 kg [facility]alt [facility] BMI 2020-09-13 20:31:00 22.96 kg/m2 [facility]alt h BP Systolic 2019-04-07 14:16:00 116 mm[Hg] Location: LUE; [facility] Position: Sitting BP Diastolic 2019-04-07 14:16:00 73 mm[Hg] Location: LUE; [facility] Position: Sitting Heart Rate 2019-04-07 14:16:00 85 /min Location: L [facility] Brachial Artery; BP Systolic 2019-04-07 13:40:00 148 mm[Hg] Location: LUE; [facility] Position: Sitting BP Diastolic 2019-04-07 13:40:00 74 mm[Hg] Location: LUE; [facility] Position: Sitting Heart Rate 2019-04-07 13:40:00 88 /min Location: L [facility] Brachial Artery; Height 2019-04-07 13:40:00 65 [in_us] [facility] Weight 2019-04-07 13:40:00 129.375 [lb_av] [facility] Body Mass Index 2019-04-07 13:40:00 21.53 kg/m2 [facility] Calculated Temperature 2019-04-07 13:40:00 97.6 [degF] Method: Oral [facility] Procedures Procedure Date / Time Performed Performing Clinician Sour e POCT GLUCOSE 2020-12-12 19:17:00 [facility] POCT GLYCOSYLATED HEMOGLOBIN 2020-12-12 19:17:00 [facility] (HGB A1C) POCT GLUCOSE 2020-09-13 20:53:00 [facility] POCT GLYCOSYLATED HEMOGLOBIN 2020-09-13 20:53:00 [facility] (HGB A1C) [QL] CMP W/EGFR 2020-05-24 00:00:00 [facility] s [QL] HEMOGLOBIN A1c 2020-05-24 00:00:00 [facility] [QL] LIPID PANEL 2020-05-24 00:00:00 [facility] ns [QL] MICROALBUMIN, RANDOM 2020-05-24 00:00:00 [facility] URINE (W/CREATININE) [QL] T4, FREE 2020-05-24 00:00:00 [facility] s [QL] TSH, 3RD GENERATION 2020-05-24 00:00:00 [facility] [QL] VITAMIN D, 25-HYDROXY, 2020-05-24 00:00:00 [facility] LC/MS/MS [QL] CMP W/EGFR 2019-08-18 00:00:00 [facility] [QL] HEMOGLOBIN A1c 2019-08-18 00:00:00 [facility] [QL] LIPID PANEL 2019-08-18 00:00:00 [facility] Phys[facility] ns [QL] MICROALBUMIN, RANDOM 2019-08-18 00:00:00 [facility] URINE (W/CREATININE) [QL] T4, FREE 2019-08-18 00:00:00 [facility] s [QL] TSH, 3RD GENERATION 2019-08-18 00:00:00 [facility] [QL] VITAMIN D, 25-HYDROXY, 2019-08-18 00:00:00 [facility] LC/MS/MS [QLH] CMP W/EGFR 2019-04-07 00:00:00 [facility] ns [QLH] HEMOGLOBIN A1c 2019-04-07 00:00:00 [facility] [QLH] LIPID PANEL 2019-04-07 00:00:00 [facility] Physici ans [QLH] MICROALBUMIN, RANDOM 2019-04-07 00:00:00 U [facility] URINE (W/CREATININE) [QLH] T4, FREE 2019-04-07 00:00:00 [facility] [QLH] TSH, 3RD GENERATION 2019-04-07 00:00:00 [facility] [QLH] VITAMIN D, 25-HYDROXY, 2019-04-07 00:00:00 [facility] LC/MS/MS History of Tubal Ligation [facility] History of Breast [facility] augmentation History of Cornea Radial [facility] Keratotomy History of [facility] Salpingo-oophorectomy bilateral History of Vaginal surgery [facility] History of Hysterectomy [facility] History of Uterine [facility] polypectomy History of Soft tissue tumor [facility] excision Plan of Care Planned Activity Planned Date Details Comments Source Future Scheduled Test 2020-01-18 00:00:00 [QL] CMP W/EGFR [code [facility] = [QL] CMP W/EGFR] Future Scheduled Test 2020-01-18 00:00:00 [QL] HEMOGLOBIN A1c [facility] [code = [QL] HEMOGLOBIN A1c] Future Scheduled Test 2020-01-18 00:00:00 [QL] LIPID PANEL [code [facility] = [QL] LIPID PANEL] Future Scheduled Test 2020-01-18 00:00:00 [QL] MICROALBUMIN, [facility] RANDOM URINE (W/CREATININE) [code = 41884] Future Scheduled Test 2020-01-18 00:00:00 [QL] T4, FREE [code = [facility] [QL] T4, FREE] Future Scheduled Test 2020-01-18 00:00:00 [QL] TSH, 3RD [facility] GENERATION [code = [QL] TSH, 3RD GENERATION] Future Scheduled Test 2020-01-18 00:00:00 [QL] VITAMIN D, [facility] 25-HYDROXY, LC/MS/MS [code = [QL] VITAMIN D, 25-HYDROXY, LC/MS/MS] Future Scheduled Test 2020-01-18 00:00:00 [QL] CMP W/EGFR [code [facility] = [QL] CMP W/EGFR] Future Scheduled Test 2020-01-18 00:00:00 [QL] HEMOGLOBIN A1c [facility] [code = [QL] HEMOGLOBIN A1c] Future Scheduled Test 2020-01-18 00:00:00 [QL] LIPID PANEL [code [facility] = [QL] LIPID PANEL] Future Scheduled Test 2020-01-18 00:00:00 [QL] MICROALBUMIN, [facility] RANDOM URINE (W/CREATININE) [code = 39327] Future Scheduled Test 2020-01-18 00:00:00 [QL] T4, FREE [code = [facility] [QL] T4, FREE] Future Scheduled Test 2020-01-18 00:00:00 [QL] TSH, 3RD [facility] GENERATION [code = [QL] TSH, 3RD GENERATION] Future Scheduled Test 2020-01-18 00:00:00 [QL] VITAMIN D, [facility] 25-HYDROXY, LC/MS/MS [code = [QL] VITAMIN D, 25-HYDROXY, LC/MS/MS] Encounters Start End Encounter Admission Attending Care Care Encounter Source Date/Time Date/Time Type Type Clinicians Facility Department ID 2020-12-12 Outpatient YULIANA, [facility] [id number] [place] 14:12:38 [facility] 2020-12-12 Outpatient FLACO, [facility] [id number] [place] 14:07:27 [facility] 2020-09-13 Outpatient FLACO, [facility] [id number] [place] 15:01:01 [facility] 2021-03-29 2021-03-30 Inpatient E RUBEN, [facility] [address] [place], [place] [address]FB 18:08:00 15:37:00 ILIANA 2020-12-12 2020-12-12 Office ZAIRA Hernandez [id number] [place] 13:03:39 14:07:33 Visit Jerel YOUNNA [id number] He alth [place] [id number] MULTI [id number] SPECIALTY 2 2020-12-12 2020-12-12 Nurse Only Flaco, ZAIRA [id number] [place] 10:02:53 11:12:16 Michelle CARLA [id number] [facility]th [place] [id number] MULTI [id number] SPECIALTY 2 2020-09-30 2020-09-30 Refill ZAIRA Hernandez [id number] [place] 00:00:00 00:00:00 Jerel CARLA [id number] He alth [place] [id number] MULTI [id number] SPECIALTY 2 2020-09-13 2020-09-13 Office ZAIRA Hernandez [id number] [place] 15:03:17 15:23:17 Visit Jerel YOUNNA [id number] He alth [place] [id number] MULTI [id number] SPECIALTY 2 2020-09-13 2020-09-13 Nurse Only Flaco, ZAIRA [id number] [place] 14:00:53 15:02:07 Michelle CARLA [id number] He alth [place] [id number] MULTI [id number] SPECIALTY 2 2020-09-07 2020-09-07 Abstract Yuliana [facility] [id number] [place] 00:00:00 00:00:00 Jerel AGUIRRE [id number] [facility] [id number] [facility] [id number] SPECIALTY 2 2019-08-18 2019-08-18 Appointmen YULIANA [facility] Multispecia [id number] [place] 14:00:00 14:00:00 t; ariel BELTRÁN i, M.D. Sienna ans AUBREY, M.D. 2019-08-18 2019-08-18 [facility] Multispecia [id number] [place] 13:00:00 13:00:00 t; MICHELLE SERNA lty - Physi ci MICHELLE, R.N. Carla rodrigues R.N. 2019-08-18 2019-08-18 [id number] [place] 13:00:00 13:00:00 t; MICHELLE SERNA Physi ci MICHELLE, R.N. ans R.N. 2019-04-07 2019-04-07 [facility] Mult[facility] [id number] [place] 13:00:00 13:00:00 t; ariel BELTRÁN i, M.D. Sienna ans AUBREY, M.D. Results Test Description Test Time Test Comments Results Result Comments Source POCT glucose manually resulted 2020-12-12 19:17:00 Test Item Value Reference Range Interpretation Comme [facility] Glucose Blood, POC (test code = 0432070) 142 mg/dL 70-180 Lab Interpretation (test code = 04804-8) Abnormal [facility] glycosylated hemoglobin (Hb A1C)2020-12-12 19:17:00 Test Item Value Reference Range Interpretation Comments Hemoglobin A1C (test code = 4548-4) Lab Interpretation (test code = Abnormal 98311-8) [facility] glycosylated hemoglobin (Hb A1C)2020-09-13 20:53:00 Test Item Value Reference Range Interpretation Comments Hemoglobin A1C (test code = 4548-4) Lab Interpretation (test code = Abnormal 22226-9) [facility] glucose manually [id number] 20:53:00 Test Item Value Reference Range Interpretation Comments Glucose Blood, POC (test code = 320 mg/dL 70-180 A [id number]) Lab Interpretation (test code = Abnormal 40929-4) [facility]] MICROALBUMIN, RANDOM URINE (W/CREATININE)2019-04-07 15:00:01 Test Item Value Reference Range Interpretation Comments Urine Microalbumin 45.9 mg/L No establ ished (test code = Urine reference range. Microalbumin) U Creatinine (test 81.60 mg/dl No establ ished code = 2161-8) reference ran ge. Urine Microalbuming 56.2 mg/g <=30.0 Creatinine Ratio; Above High Threshold (test code = 87538-1) [facility]] CMP [id number] 14:50:01 Test Item Value Reference Range Interpretation Comments Sodium Level 143 {mEq/l} 135-145 (test code = 2951-2) Potassium Level 4.4 {mEq/l} 3.5-5.1 (test code = 2823-3) Chloride Level; 110 {mEq/l} 95-109 Above High Threshold (test code = 5-0) Carbon Dioxide 25 {mEq/l} 24-32 (test code = 2027-9) AGAP (test code = 12.4 {mEq/l} 10.0-20.0 34260-0) Glucose Lvl; 110 mg/dl 70-99 Adult reference range Above High values reflect the Threshold (test clinical roshan delinesof the code = 2345-7) [employer]. Creatinine Lvl; 1.60 mg/dl 0.50-1.40 Above High Threshold (test code = 2160-0) Blood Urea 45 mg/dl 7-22 Nitrogen; Above High Threshold (test code = 3094-0) BUN/Creatinine 28 6-25 Ratio; Above High Threshold (test code = 3097-3) Total Protein; 8.6 g/dl 6.4-8.4 Above High Threshold (test code = 2885-2) Albumin Lvl (test 4.3 g/dl 3.5-5.0 code = 1751-7) Globulin; Above 4.3 g/dl 2.7-4.2 High Threshold (test code = 40771-0) A/G Ratio (test 1.0 0.7-1.6 code = 1759-0) Calcium Level 10.3 mg/dl 8.5-10.5 Total (test code = 80196-5) ALT (test code = 32 u/l 0-65 1743-4) AST (test code = 21 u/l 0-37 92212-7) Bili Total (test 0.4 mg/dl 0.2-1.3 code = 1975-2) Alk Phos (test 99 u/l 39-136 The pediatric reference code = 1783-0) ranges for th is test represent a CLSI-basedtrans ference of the CALIPER prosper abase of pediatric refer ence intervals to eSiemens Corolla analyzer (Clinical Biochemistry 46 (2013): 4107-9764). [facility] [employer] [facility] has not internally validated these reference ranges and therefore they should be used only in th e context of a thoroughcl inical assessment. eGFR (test code = 32 The eGFR i s calculated 98073-5) {ML/MIN/1.7} using the CKD-E PI formula. In mos t young, healthyindividu als the eGFR will be >9 0 mL/min/1.73m2. The eGFR declines with a ge. AneGFR of 60-89 may be normal in some population s, particularly th e elderly, forwhom the CKD -EPI formula has not been extensively bri idated. Use of the eGFR isnot recommended in the following populations:Ind ividuals with unstable c reatinine concentrations, including patient s and those with seri ous co-morbid conditions.Serena ents with extremes in mus raegan mass or diet.The prosper a above are obtained fr om the National Kidney Disease Education Progr am(NKDEP) which additiona lly recommends that when the eGFR is used in patientswith ex tremes of body mass index for purposes of jules g dosing, the eGFR should be multiplied by t he estimated BMI. [facility]] LIPID [id number] 14:50:01 Test Item Value Reference Range Interpretation Comments Chol; Above High Threshold (test 331 mg/dl <=199 code = 2093-3) Trig; Above High Threshold (test 238 mg/dl <=149 code = 2571-8) HDL Cholesterol (test code = 62 mg/dl >=61 2085-9) CHD Risk (test code = 80085-7) 5.34 3.90-5.80 LDL; Above High Threshold (test 221 mg/dl <=99 code = 14330-5) VLDL (test code = VLDL) 48 [facility][QL] T4, [id number] 14:50:01 Test Item Value Reference Range Interpretation Comments T4 Free (test code = 3024-7) 1.16 ng/dl 0.76-1.46 [facility][QLH] TSH, 3RD [id number] 14:50:01 Test Item Value Reference Range Interpretation Comments TSH (test code = 86656-5) 2.130 {uIU/ml} 0.360-3.740 [facility][QL] VITAMIN D, 25-HYDROXY, [id number] 14:50:01 Test Item Value Reference Range Interpretation Comments Vitamin D, 25-OH, 81.2 ng/ml 30.0-100.0 Reference range is based Total (test code on recommen dations in the = Vitamin D, [facility] y Clinical 25-OH, Total) Practice Guide line (J Clin Endocrinol [id number];96:19 11-1930) [facility][QLH] HEMOGLOBIN [id number] 14:50:01 Test Item Value Reference Range Interpretation Comments Hemoglobin A1c; Above High Threshold 6.7 % <=5.6 (test code = 4548-4) [facility] ([facility] Care In Office)2019-04-07 13:54:00 Test Item Value Reference Range Interpretation Comments Glucose POC Lifes[facility] (test code = 115 A Glucose POC Lifescan) [facility][O] Hemoglobin A1c (in office)2019-04-07 13:53:00 Test Item Value Reference Range Interpretation Comments HEMOGLOBIN A1c; Abnormal (test code = 6.4 A 4548-4) [facility]
--- NOTE | 2021-10-04 11:13 | RAD REPORT ---
EXAM DESCRIPTION: RAD - Chest Single View - 10/04/2021 10:57 am CLINICAL HISTORY: COUGH Chest pain. COMPARISON: Chest Single View dated 10/17/2018; CHEST SINGLE VIEW dated 03/05/2014; CHEST SINGLE VIEW dated 01/19/2010 FINDINGS: Portable technique limits examination quality. Interstitial opacities are slightly prominent in lung bases suggesting a mild atypical infection. The heart is normal in size. No displaced fractures.
--- NOTE | 2021-10-04 12:18 | ER ---
Nurse's Notes [facility] Name: Keren Hinton Age: 75 yrs Sex: Female : 1945 Arrival Date: 10/04/2021 Time: 10:24 Bed 28 Private MD: Steve Salazar Diagnosis: Pneumonia, unspecified organism-atypical Presentation: 10/04 10:35 Chief complaint: Patient states: Dry cough, nasal congestion, sinus drainage, fever, aa5 diarrhea, body aches, nausea x 1 week ago. Coronavirus screen: congestion, cough unrelated to allergies, fever. Ebola Screen: Patient denies travel to an Ebola-affected area in the 21 days before illness onset. Initial Sepsis Screen: Does the patient meet any 2 criteria? HR > 90 bpm. Does the patient have a suspected source of infection? Yes:. Risk Assessment: Do you want to hurt yourself or someone else? Patient reports no desire to harm self or others. Onset of symptoms was September 2021. 10:35 Acuity: JOSEPH 3 aa5 10:35 Method Of Arrival: Ambulatory aa5 Triage Assessment: 12:25 General: Appears in no apparent distress. Behavior is calm, cooperative. 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 - Social history:: Smoking status: Patient denies any tobacco usage or history of. Screenin:42 Abuse screen: Denies threats or abuse. Nutritional screening: No deficits noted. ll1 Tuberculosis screening: No symptoms or risk factors identified. 12:25 Fall Risk Total Gant Fall Scale indicates No Risk (0-24 pts). ll1 Assessment: 10:42 Reassessment: No changes from previously documented assessment. Patient and/or family ll1 updated on plan of care and expected duration. Pain level reassessed. Patient is alert, oriented x 3, equal unlabored respirations, skin warm/dry/pink. gait steady to ED RM 28. 11:45 Reassessment: No changes from previously documented assessment. Patient and/or family ll1 updated on plan of care and expected duration. Pain level reassessed. Patient is alert, oriented x 3, equal unlabored respirations, skin warm/dry/pink. Pain: Denies pain. 12:24 Reassessment: No changes from previously documented assessment. Patient and/or family ll1 updated on plan of care and expected duration. Pain level reassessed. Patient is alert, oriented x 3, equal unlabored respirations, skin warm/dry/pink. Vital Signs: 10:35 BP 136 / 79; Pulse 113; Resp 20 S; Temp 98.1(O); Pulse Ox 97% on R/A; Weight 61.23 kg aa5 (R); Height 5 ft. 5 in. (165.10 cm) (R); 12:25 BP 151 / 69; Pulse 96; Resp 18; Pulse Ox 97% on R/A; ll1 10:35 Body Mass Index 22.46 (61.23 kg, 165.10 cm) aa5 ED Course: 10:24 Patient arrived in ED. mr 10:24 Steve Salazar MD is Private Physician. mr 10:25 Radha Randhawa FNP-C is [facility]. kb 10:25 Maurice Ferreira DO is Attending Physician. kb 10:35 Arm band placed on. aa5 10:37 Triage completed. aa5 10:42 Andre Arias, RN is Primary Nurse. ll1 10:42 Patient placed in an exam room, on a stretcher. ll1 10:42 Patient has correct armband on for positive identification. Bed in low position. Call ll1 light in reach. Side rails up X 1. 10:59 Chest Single View XRAY In Process Unspecified. EDMS 12:25 No provider procedures requiring assistance completed. Patient did not have IV access ll1 during this emergency room visit. Administered Medications: No medications were administered Medication: 10:42 VIS not applicable for this client. ll1 Outcome: 12:17 Discharge ordered by . kb 12:25 Discharged to home ambulatory. ll1 12:25 Condition: stable 12:25 Discharge instructions given to patient, Instructed on discharge instructions, follow up and referral plans. medication usage, Demonstrated understanding of instructions, follow-up care, medications, Prescriptions given X 1. 12:26 Patient left the ED. ll1 Signatures: Dispatcher [employer] EDMS Radha Randhawa FNP-C FNP-Ckb Rivera, Mary mr AvilaSavannah, RN RN aa5 Hugo, Andre, RN RN ll1
--- NOTE | 2021-10-04 12:18 | EDPHYS ---
Physician Documentation [facility] Name: Keren Hinton Age: 75 yrs Sex: Female : 1945 Arrival Date: 10/04/2021 Time: 10:24 Bed 28 Private MD: Steve Salazar ED Physician Maurice Ferreira HPI: 10/04 17:27 This 75 yrs old Female presents to ER via Ambulatory with complaints of Cough. kb 17:27 The patient or guardian reports cough. Onset: The symptoms/episode began/occurred 1 kb week(s) ago. Severity of symptoms: At their worst the symptoms were moderate, in the emergency department the symptoms are unchanged. Modifying factors: The symptoms are alleviated by nothing, the symptoms are aggravated by nothing. Associated signs and symptoms: The patient has no apparent associated signs or symptoms, Pertinent negatives: chest pain, fever. The patient has not experienced similar symptoms in the past. The patient has not recently seen a physician. Pt reports dry cough, sinus drainage and nasal congestion for a week. . 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 - Social history:: Smoking status: Patient denies any tobacco usage or history of. ROS: 17:34 Constitutional: Negative for fever, chills, and weight loss. kb 17:34 ENT: Positive for rhinorrhea, sinus congestion. 17:34 Respiratory: Positive for cough. 17:34 All other systems are negative. Exam: 17:34 Constitutional: This is a well developed, well nourished patient who is awake, alert, kb and in no acute distress. Head/Face: Normocephalic, atraumatic. ENT: Moist Mucous membranes Cardiovascular: Regular rate and rhythm with a normal S1 and S2. No gallops, murmurs, or rubs. No pulse deficits. Respiratory: Respirations even and unlabored. No increased work of breathing. Talking in full sentences Skin: Warm, dry with normal turgor. Normal color. MS/ Extremity: Pulses equal, no cyanosis. Neurovascular intact. Full, normal range of motion. Neuro: Awake and alert, GCS 15, oriented to person, place, time, and situation. Moves all extremities. Normal gait. Psych: Awake, alert, with orientation to person, place and time. Behavior, mood, and affect are within normal limits. Vital Signs: 10:35 BP 136 / 79; Pulse 113; Resp 20 S; Temp 98.1(O); Pulse Ox 97% on R/A; Weight 61.23 kg aa5 (R); Height 5 ft. 5 in. (165.10 cm) (R); 12:25 BP 151 / 69; Pulse 96; Resp 18; Pulse Ox 97% on R/A; ll1 10:35 Body Mass Index 22.46 (61.23 kg, 165.10 cm) aa5 MDM: 10:34 Patient medically screened. kb 17:27 Data reviewed: vital signs, nurses notes. Data interpreted: Pulse oximetry: on room air kb is 97 %. Interpretation: normal. Counseling: I had a detailed discussion with the patient and/or guardian regarding: the historical points, exam findings, and any diagnostic results supporting the discharge/admit diagnosis, lab results, radiology results, the need for outpatient follow up, a family practitioner, to return to the emergency department if symptoms worsen or persist or if there are any questions or concerns that arise at home. 17:34 ED course: pt is nontoxic in appearance, denies fever, n/v/d. Agrees with outpatient kb treatment. 10/04 10:42 Order name: Flu; Complete Time: 11:53 kb 10/04 10:42 Order name: COVID-19 SARS RT PCR (Document "Date of Onset" if Symptomatic); Complete kb Time: 12:15 10/04 10:42 Order name: Chest Single View XRAY; Complete Time: 11:14 kb Administered Medications: No medications were administered Disposition: 19:51 Co-signature as Attending Physician, Maurice ASHFORD was immediately available on-site ms3 in the Emergency Department for consultation in the care of the patient.. Disposition Summary: 10/04/21 12:17 Discharge Ordered Location: Home kb Condition: Stable kb Diagnosis - Pneumonia, unspecified organism - atypical kb Followup: kb - With: Emergency Department - When: As needed - Reason: Worsening of condition Followup: kb - With: Private Physician - When: 2 - 3 days - Reason: Recheck today's complaints, Continuance of care, Re-evaluation by your physician Discharge Instructions: - Discharge Summary Sheet kb - Community-Acquired Pneumonia, Adult, [id number] kb Forms: - Medication Reconciliation Form kb - Thank You Letter kb - Antibiotic Education kb - Prescription Opioid Use kb Prescriptions: - Zithromax 500 mg Oral Tablet - take 1 tablet by ORAL route once daily for 5 days; 5 tablet; Refills: 0, kb Product Selection Permitted Signatures: Dispatcher [employer] EDRadha Lama, GROUP LEADER-C GROUP LEADER-Savannah Ruiz, RN RN aa5 Maurice Ferreira DO DO ms3
[2021-10-04 12:33] VITALS: TEMP 98.1; O2SAT 97
[2021-10-04 12:35] VITALS: BP 151/69
== END 2021-10-04 12:26 | disposition home or self-care (01) ==
LOC: ER 10:17
DX: J18.9 Pneumonia, unspecified organism (principal); E11.9 Type 2 diabetes mellitus without complications; Z20.822 Contact with and (suspected) exposure to COVID-19; Z85.038 Personal history of other malignant neoplasm of large intestine; Z85.51 Personal history of malignant neoplasm of bladder
CPT/HCPCS: 87804 ×2; 71045; 99283; U0003

== ENCOUNTER 2022-05-20 17:38 | Inpatient (IN) | payer OTHER ==
--- OUTSIDE RECORDS SUMMARY | 2022-05-20 17:42 | XMS REPORT | Continuity of Care Document ---
:1945 Author Organization [facility] t Address [address] [place] [address] Care Team Providers Name Role Phone MILENA ARIZA Primary Care Physician Unavailable JEREL BRIDGES Attending Clinician Unavailable MICHELLE SAM Attending Clinician Unavailable JANELLE MIRANDA Attending Clinician Unavailable Janelle Miranda Attending Clinician JEREL BRIDGES M.D. Attending Clinician Unavailable MICHELLE SAM R.N. Attending Clinician Unavailable Sylvia Owusu Attending Clinician JANELLE MIRANDA Admitting Clinician Unavailable Janelle Miranda Admitting Clinician Payers Payer Name Policy Type Policy Number Effective Date Expiration Date S renée [employer] MEDICARE PPO [id number] 2013 00:00:00 Problems Condition Condition Condition Status Onset Resolution Last Treating Co mments Source Name Details Category Date Date Treatment Clinician Date DESATURATI DESATURAT Diagnosis Active 2020-042021-03-30 Memoria ON AFTER ION AFTER 05-29 06:32:00 l OUT PT OUT PT 00:00: [place] SURGERY SURGERY 00 Active 03/28/2021 Amber Berger ACUTE ACUTE Diagnosis Active 2020-042021-04-11 Mem oria RESPIRATOR RESPIRATOR 05-29 21:46:00 l Y FAILURE Y FAILURE 00:00: Herm harlan WITH WITH 00 HYPOXIA HYPOXIA Active 03/28/2021 [place] Diabetes Diabetes Disease Active UT mellitus, mellitus, 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 00:00: 00 CKD CKD Disease Active UT (chronic (chronic 04 Health kidney kidney 00:00: disease) disease) 00 History of History of Disease Active U T head and head and 5- Health neck neck 00:00: radiation radiation 00 Hypothyroi Hypothyroi Disease Active U T dism dism 08-22 Health 00:00: 00 Microalbum Microalbum Disease Active U T inuria inuria 08-22 Health 00:00: 00 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 - Diagnosis Active 2015-09-05 Memoria UNSPECIFIE UNSPECIFIE 08-20 10:39:00 l D D 00:01: [place] MENOPAUSAL MENOPAUSAL 00 AND PER AND PER Active 08/21/2015 OPID [place] CKD CKD Problem Active UT (chronic (chronic [...] Ph ysici Hodgkin Hodgkin ans lymphoma lymphoma Acute Acute Problem Active 2021-04-02 Memor ia respirator respirator 09:12:48 l y failure y failure Herm harlan (disorder) (disorder) Active Problem 04/02/2021 [place] History of History Problem Active 2021-04-02 Memoria - of - 09:12:48 l malignant malignant Herm harlan neoplasm neoplasm (*) (*) (context-d (context-d ependent ependent category) category) Active Problem 04/02/2021 [place] Injury of Injury of Problem Active 2021-04-02 Memoria kidney kidney 09:12:48 l (disorder) (disorder) He rmann Active Problem 04/02/2021 [place] Lactic Lactic Problem Active 2021-04-02 Mack rafaela acidosis acidosis 09:12:48 l (disorder) (disorder) He rmann Active Problem 04/02/2021 [place] Leukocytos Leukocyto Problem Active 2021-04-02 Memoria is sis 09:12:48 l (disorder) (disorder) He rmann Active Problem 04/02/2021 [place] Malignant Malignant Problem Active 2021-04-02 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:12:48 l urinary urinary [place] bladder bladder (disorder) (disorder) Active Problem 04/02/2021 [place] Tachycardi Tachycard Problem Active 2021-04-02 Memoria a ia 09:12:48 l (finding) (finding) Herm harlan Active Problem 04/02/2021 [place] ACUTE ACUTE Diagnosis Active 2021-04-11 Mem oria PULMONARY PULMONARY 21:46:00 l EDEMA EDEMA [place] Active [place] ACIDOSIS ACIDOSIS Diagnosis Active 2021-04-11 Memoria Active MH 21:46:00 l [place] Jean Claude n Allergies, Adverse Reactions, Alerts This patient has no known allergies or adverse reactions. Social History Social Habit Start Date Stop Date Quantity Comments Source History of tobacco Current smoker [facility] use History [facility] Alcohol Frequency History [facility] Alcohol Std Drinks History [facility] Alcohol Binge Exposure to 2021-10-20 2021-10-30 Not sure [facility] SARS-CoV-2 (event) 00:00:00 09:50:00 Alcohol intake 2021-03-29 2021-03-29 Current drinker [facility] 00:00:00 00:00:00 of alcohol (finding) Tobacco Comment 2020-12-12 2020-12-12 Quit 40 years ago [facility] 00:00:00 00:00:00 Tobacco use and 2020-12-12 2020-12-12 Smokeless tobacco [facility] exposure 00:00:00 00:00:00 non-user Alcohol Comment 2020-09-07 2020-09-07 rarely [facility] 00:00:00 00:00:00 Social History 2015-07-14 2015-07-14 [facility] rei 19:46:37 19:46:37 Sex [birth year] [facility] 00:00:00 00:00:00 Smoking Status Start Date Stop Date Source Ex-smoker 2020-12-12 00:00:00 2020-12-12 00:00:00 [facility] Medications Ordered Filled Start Stop Current Ordering Indication Dosage Frequency Signature Comments Components Source Medication Medication Date Date Medication? Clinician (SIG) Name Name Multiple 2021- No UT Vitamins-Mi 10-30 Health nerals 10:24: 00:00 (Hair/Skin/ 44 :00 Nails/Bioti n) tablet SUPER B No UT COMPLEX & C 10-30 Health tablet 10:24: 00:00 41 :00 Multiple Yes UT Vitamins-Mi 10-30 Health nerals 10:00: (Multi For 57 Her 50+) tablet Insulin Pen Yes [id number] USE UT Needle (BD 10-30 DIRECTED Healt h Pen Needle 00:00: WITH Jane INSULIN Gen) 32G X PENS TWICE 4 MM misc DAILY. insulin 2022- No [id number] 60U Q.5D Inject 60 UT detemir 10-30 Units Health (Levemir 00:00: 04:59 under the FlexTouch) 00 :00 skin in 100 UNIT/ML the injection morning and 60 Units in the evening. insulin 2022- No [id number] 22U Inject 22 UT aspart 10-30 Units Health (NovoLOG) 00:00: 04:59 under the 100 UNIT/ML 00 :00 skin in injection the morning and 22 Units at noon and 22 Units in the evening. Inject before meals. Synthroid 2022- No [id number] 125ug QD Take 1 UT 125 MCG 10-30 tablet Health tablet 00:00: 04:59 (125 mcg 00 :00 total) by mouth 1 (one) time each day. Synthroid 2021- No [id number] TAKE 1 U T 125 MCG 10-15 TABLET BY Health tablet 00:00: 00:00 MOUTH 00 :00 EVERY DAY DIRECTED Levemir 2021- No [id number] 60U Q.5D INJECT 60 UT FlexTouch 09-10 UNITS Health 100 UNIT/ML 00:00: 00:00 UNDER THE injection 00 :00 SKIN 2 (TWO) TIMES A DAY. BD Pen 2021- No [id number] USE UT Needle Jane 05-02 DIRECTED Hea lt 2nd Gen 32G 00:00: 00:00 WITH X 4 MM misc 00 :00 INSULIN PENS TWICE DAILY. Levofloxaci 2020-04 Yes 750 mg = 1 Memoria n 750 MG 2-10 tab, PO, l Oral Tablet 19:50: Daily, X 5 [place] [Levaquin] 00 day, # 5 tab, 0 Refill(s), Pharmacy: [facility] #[id number], 165.1, cm, 03/29/21 1:38:00 LEARNING DESIGNER, Height, 63.722, kg, 03/29/21 1:38:00 LEARNING DESIGNER, Weight Famotidine 2020-04 No Notes: Memor ia 20 MG Oral 2-09 (Same as: l Tablet 15:00: Pepcid) [place] 00 Synthroid 2020-04 No Notes: Memori a 2-09 Take 1 l 15:00: hour [place] 00 before or 2 hours after meal; Enteral feeds may interefere with the absorption of this medication . (Same as:Synthro id) Ceftriaxone 2020-04 No Notes: Mack rafaela 2-09 (Same As: l 15:00: Rocephin). [place] 00 Use with 100 mL NS and infuse over 30 min MEDICATION WASTE Product Size: 1000 mg Product Wasted: ___ mg Insulin 2020-04 No Notes: Memoria Glargine 2-09 (Same as: l 100 UNT/ML 08:06: Lantus) Do H ermann Injectable 00 not hold Solution insulin [Lantus] without contacting prescriber WASTE: F/P - Black; E - Municipal Trash Bin "single patient use only" Stable for 28 days at room temperatur e Expires in days from ____Date Humalog 2020-04 No Notes: Memoria 2-09 (Same as: l 08:06: Humalog) [place] 00 Roll in palms of hands gently; Do not shake vigorously . WASTE: F/P - Black; E - Municipal Trash Bin Stable for 28 days at room temperatur e. Expires in days from ____Date 3 ML 2020-04 Yes SUB-Q, 0 [place] insulin, 05-30 Refill(s) l regular, 07:36: [place] human 100 00 UNT/ML Pen Injector [Novolin R] Lactated 2020-04 No 500 mL, Memori a Ringers IV 05-30 Rate: 150 l 500 mL 06:05: ml/hr, Infuse over: 3.3 hr, Route: IV, Dosing Weight 63.636 kg, Total Volume: 500, Priority: Routine, Start date: 03/29/21 0:05:00 LEARNING DESIGNER, Duration: 1 doses or times, Stop date: 03/29/21 3:22:00 LEARNING DESIGNER, BSA: 1.72 m2, 0 Calcium 2020-04 No 1,000 mL, Memor ia Chloride 05-30 1,000 l 0.0014 06:02: ml/hr, [place] MEQ/ML / 00 Infuse Potassium Over: 1 Chloride hr, Route: 0.004 IV, 1,000, MEQ/ML / Drug form: Sodium INJ, ONCE, Chloride Dosing 0.103 Weight MEQ/ML / 63.636 kg, Sodium Start Lactate date: 0.028 03/29/21 MEQ/ML 0:02:00 Injectable LEARNING DESIGNER, Stop Solution date: 03/29/21 0:02:00 LEARNING DESIGNER, 0 Saline 2020-04 No Notes: [place] Flush 0.9% 05-30 (Same as: l 03:00: BD Posiflush) heparin 2020-04 No Notes: Memoria 2-09 porcine l 03:00: heparin Docusate 2020-04 No Notes: [place]oria 2-08 (Same as: l 23:00: Colace) (Do Not Crush) Lasix 2020-04 No Notes: Memoria 2-08 (Same as: l 23:00: Lasix) MEDICATION WASTE Product Size: 40 mg Product Wasted: ___ mg Dextrose 2020-04 No 12.5 gm, Memor ia 50% Syringe 05-29 25 mL, l (D50W) 22:10: Route: [place] 00 IVP, Drug Form: INJ, Dosing Weight 63.636, kg, PRN, PRN Blood Glucose Results, Start date: 03/28/21 16:10:00 LEARNING DESIGNER, Duration: 30 day, Stop date: 04/27/21 16:09:00 LEARNING DESIGNER, 0 Glucagon 2020-04 No 1 mg, Memoria 2-08 Route: IM, l 22:10: Drug form: PDR/INJ, PRN, Dosing Weight 63.636, kg, PRN Blood Glucose Results, Start date: 03/28/21 16:10:00 LEARNING DESIGNER, Duration: 30 day, Stop date: 04/27/21 16:09:00 LEARNING DESIGNER, 0 Insulin 2020-04 No Notes: [place]oria Lispro 2-08 (Same as: l 22:10: Humalog) Roll in palms of hands gently; Do not shake vigorously . WASTE: F/P - Black; E - Municipal Trash Bin Stable for 28 days at room temperatur e. Expires in days from ____Date Saline 2020-04 No Notes: [place] Flush 0.9% 2-08 (Same as: l 22:09: BD Posiflush) Dextrose 2020-04 No 12.5 gm, Memor ia 50% Syringe 2-08 25 mL, l (D50W) 21:58: Route: IVP, Drug Form: INJ, Dosing Weight 63.636, kg, PRN, PRN Blood Glucose Results, Start date: 03/28/21 15:58:00 LEARNING DESIGNER, Duration: 30 day, Stop date: 04/27/21 15:57:00 LEARNING DESIGNER, 0 Glucagon 2020-04 No 1 mg, Memoria 2-08 Route: IM, l 21:58: Drug form: PDR/INJ, PRN, Dosing Weight 63.636, kg, PRN Blood Glucose Results, Start date: 03/28/21 15:58:00 LEARNING DESIGNER, Duration: 30 day, Stop date: 04/27/21 15:57:00 LEARNING DESIGNER, 0 Ondansetron 2020-04 No Notes: Mack rafaela 2-08 (Same as: l 21:58: Zofran) MEDICATION WASTE Product Size: 4 mg Product Wasted: ___ mg Acetaminoph 2020-04 No Notes: Do M emoria en 05-29 not exceed l 21:58: 4 gm/day. (Same as: Tylenol) Saline 2020-04 No Notes: Memoria Flush 0.9% 05-29 (Same as: l 19:41: BD Posiflush) Furosemide 2020-04 No Notes: Memor ia 08 (Same as: l 19:41: Lasix) insulin 2021- No [id number] 20U Inject 20 UT aspart 8-24 07-12 Units Health (NovoLOG) 00:00: 00:00 under the 100 UNIT/ML 00 :00 skin 3 injection (three) times a day before meals. Continuous Yes [id number] Wear for UT Blood Gluc 5-26 14 days. Healt h Sensor 00:00: (FreeStyle 00 Mariano 14 Day Sensor) misc Continuous Yes [id number] 1{each} 1 each 4 UT Blood Gluc 5-26 (four) Health Boiler Welder 00:00: times a (FreeStyle 00 day Mariano 14 (before Day [place]) meals and device nightly). insulin pen Yes [id number] Use to UT needle (B-D 5-26 inject 1-4 He alth ULTRAFINE 00:00: times III SHORT 00 daily as PEN) 31G X directed 8 mm misc Levemir Levemir 2019-04 Yes JEREL 55 Q12H INJECT 55 UT FlexTouch FlexTouch 1-09 [place] UNIT Every Physici 100 UNIT/ML 100 UNIT/ML 00:00: M.D. twelve ans Subcutaneou Subcutaneou 00 hours s Solution s Solution Pen-injecto Pen-injecto r r BD Pen BD Pen 2018-04 Yes JEREL Use as UT Needle Jane Needle Jane 2-18 [place] directed Physici U/F 32G X 4 U/F 32G X 4 00:00: M.D. with ans MM MM 00 insulin pens twice daily. Vascepa 1 Vascepa 1 Yes 2 [...] ails/Biotin ails/Biotin P hysici TABS TABS ans Immunizations Ordered Immunization Filled Immunization Date Status Commen ts Source Name Name pneumococcal 2015-08-16 Completed [facility] 13-valent vaccine 19:50:00 [place] Vital Signs Vital Name Observation Time Observation Value Comments Source Systolic blood 2021-10-30 138 mm[Hg] [facility] pressure 15:01:00 Diastolic blood 2021-10-30 78 mm[Hg] [facility] pressure 15:01:00 Heart rate 2021-10-30 97 /min [facility] 15:01:00 Body temperature 2021-10-30 36.28 [place] [facility] 15:01:00 Body weight 2021-10-30 63.776 kg [facility] 15:01:00 BMI 2021-10-30 23.40 kg/m2 [facility] 15:01:00 Temperature Oral 2021-03-30 98.6 F [facility] rmann (F) 18:00:00 Respitory Rate 2021-03-30 [facility] harlan 18:00:00 Systolic (mm Hg) 2021-03-30 [facility] rmann 18:00:00 Diastolic (mm Hg) 2021-03-30 [facility] ermann 18:00:00 Heart Rate 2021-03-30 [facility] 18[facility]00 Temperature Oral 2021-03-30 98.4 F [facility] rmann (F) 14:43:00 Heart Rate 2021-03-30 [facility] 14[facility]:00 Respitory Rate 2021-03-30 [facility] harlan 14:43:00 Systolic (mm Hg) 2021-03-30 [facility] rmann 14:43:00 Diastolic (mm Hg) 2021-03-30 [facility] ermann 14:43:00 Temperature Oral 2021-03-30 98.2 F [facility] rmann (F) 09:56:00 Heart Rate 2021-03-30 Cortez Stewartan n 09:56:00 Respitory Rate 2021-03-30 [facility] Terry harlan 09:56:00 Systolic (mm Hg) 2021-03-30 [facility] rmann 09:56:00 Diastolic (mm Hg) 2021-03-30 [facility] Eileen ermann 09:56:00 Height 2021-03-29 165.1 cm Cortez Silverio n 07:38:00 Weight 2021-03-29 Cortez Silverio n 07:38:00 BMI Calculated 2021-03-29 [facility] Terry harlan 07:38:00 Weight 2021-03-28 Cortez Silverio n 19:30:00 BP Systolic 2019-04-07 116 mm[Hg] Location: LUE; [facility] 14:16:00 Position: Sitting BP Diastolic 2019-04-07 73 mm[Hg] Location: LUE; [facility] 14:16:00 Position: Sitting Heart Rate 2019-04-07 85 /min Location: L [facility] 14:16:00 Brachial Artery; BP Systolic 2019-04-07 148 mm[Hg] Location: LUE; [facility] 13:40:00 Position: Sitting BP Diastolic 2019-04-07 74 mm[Hg] Location: LUE; [facility] 13:40:00 Position: Sitting Heart Rate 2019-04-07 88 /min Location: L [facility] 13:40:00 Brachial Artery; Height 2019-04-07 65 [in_us] [facility] 13:40:00 Weight 2019-04-07 129.375 [lb_av] [facility] 13:40:00 Body Mass Index 2019-04-07 21.53 kg/m2 [facility] Calculated 13:40:00 Temperature 2019-04-07 97.6 [degF] Method: Oral [facility] 13:40:00 Procedures Procedure Date / Time Performed Performing Clinician Sourc e POCT GLYCOSYLATED HEMOGLOBIN 2021-10-30 15:53:00 [facility] (HGB A1C) POCT GLUCOSE 2021-10-30 15:52:00 Carhill, Jerel [facility] [QL] CMP W/EGFR 2020-05-24 00:00:00 [facility] Physician [...] Source Future Scheduled Test 2020-01-18 00:00:00 [QL] T4, [...] [facility] RANDOM URINE (W/CREATININE) [code = 66781] Future Scheduled Test 2020-01-18 00:00:00 [QL] T4, [...] [facility] RANDOM URINE (W/CREATININE) [code = 94095] Encounters Start End Encounter Admission Attending Care Care Encounter Source Date/Time Date/Time Type Type Clinicians Facility Department ID 2022-05-02 Outpatient [facility] [id number] [place] 15:47:[address] [place] [address] 2020-12-12 Outpatient CARORNNILL, [facility] [id number] [place] 14:12:38 [facility] 2020-12-12 Outpatient DAPHNE, [facility] [id number] [place] 14:07:27 [facility] 2020-09-13 Outpatient DAPHNE, [facility] [id number] [place] 15:01:01 [facility] 2022-08-20 2022-08-20 Outpatient CARRONNILL, [facility] [id number] [place] 10:20:00 10:20:00 [facility] 2022-03-13 2022-03-13 Outpatient YULIANA, [facility] [id number] [place] 10:00:00 10:46:50 [facility] 2021-10-30 2021-10-30 Office Yuliana, UTP [id number] [place] 10:20:00 10:52:43 Visit Jerel AGUIRRE [id number] [facility] [id number] MULTI [id number] SPECIALTY 2 2021-10-08 2021-10-08 Telephone Yuliana, UTP [id number] [place] 00:00:00 00:00:00 Jerel AGUIRRE [id number] [facility] [id number] MULTI [id number] SPECIALTY 2 2021-03-28 2021-03-30 Inpatient [facility] [id number] Memoria 19:14:16 21:37:00 r [place] 00 l [place] Leyla nn 2021-03-29 2021-03-30 Inpatient E SHWETA MIRANDA MED [id number] FB 18:08:00 15:37:00 JANELLE 2021-03-28 2021-03-30 Outpatient AKASH Miranda [facility] [id number] 13:14:16 15:37:00 Janelle 00 Edi 2021-03-28 2021-03-30 Outpatient [facility] [id number] 275 13:14:16 15:37:00 Janelle 00 Edi 2020-12-12 2020-12-12 Office ZAIRA Bridges [id number] [place] 13:03:39 14:07:33 Visit Jerel CARLA [id number] [facility] [place] [id number] MULTI [id number] SPECIALTY 2 2020-12-12 2020-12-12 Nurse Only ZAIRA Sam [id number] [place] 10:02:53 11:12:16 Michelle CARLA [id number] [facility] [place] [id number] MULTI [id number] SPECIALTY 2 2020-09-30 2020-09-30 Refill ZAIRA Bridges [id number] [place] 00:00:00 00:00:00 Jerel CARLA [id number] [facility] [place] [place] [id number] MULTI [id number] SPECIALTY 2 2020-09-13 2020-09-13 Office ZAIRA Bridges [id number] [place] 15:03:17 15:23:17 Visit Jerel CARLA [id number] [facility] [place] [id number] MULTI [id number] SPECIALTY 2 2020-09-13 2020-09-13 Nurse Only ZAIRA Sam [id number] [place] 14:00:53 15:02:07 Michelle CARLA [id number] [facility] [place] [id number] MULTI [id number] SPECIALTY 2 2020-09-07 2020-09-07 Abstract ZAIRA Bridges [id number] [place] 00:00:00 00:00:00 Jerel CARLA [id number] [place] [id number] MULTI [id number] SPECIALTY 2 2019-08-18 2019-08-18 Appointmen YULIANA [facility] Multispecia [id number] [place] 14:00:00 14:00:00 t; ariel BELTRÁN i, M.D. Sienna ans AUBREY, M.D. 2019-08-18 2019-08-18 Appointmen ZAIRA SAM Multispecia [id number] [place] 13:00:00 13:00:00 t; MICHELLE SAM lty - Physi ci Kirstie HASSAN R.NShantanu 2019-08-18 2019-08-18 Appointmen DAPHNE [facility] [id number] [place] 13:00:00 13:00:00 t; MICHELLE SAM, Liana ci Kirstie HASSAN R.NShantanu 2019-04-07 2019[facility]ULIANA [facility] Multispecia [id number] [place] 13:00:00 13:00:00 t; ariel BELTRÁN i, M.D. Sienna ans AUBREY, M.D. 2015-11-22 2015-11-22 Outpatient MHIE MHIE [id number] Memoria 11:00:00 11:00:00 06 shana Childress 2015-11-08 2015-11-08 Outpatient MHIE MHIE [id number] [place] 14:50:00 14:50:00 05 shana Childress 2015-09-20 2015-09-20 Outpatient MHIE MHIE [id number] Memoria 15:30:00 15:30:00 04 shana Childress 2015-09-05 2015-09-[address] [facility] [id number] Memoria 15:29:00 04:59:00 r Outpatient 00 l Imaging [place] Childress 2015-09-05 2015-09-05 [facility] [id number] 10:29:00 23:59:00 Sylvia Lange 00 2014-11-07 2014-11-07 Outpatient MHIE MHIE [id number] Memoria 09:30:00 09:30:00 00 shana Childress Results Test Description Test Time Test Comments Results Result Comments Source POCT glycosylated hemoglobin (Hb A1C) 2021-10-30 15:53:00 Test Item Value Reference Range Interpretation Comme nts Hemoglobin A1C (test code = 4548-4) 7.3 % 4-6 A Lab Interpretation (test code = 34914-0) Abnormal [facility] glucose manually [id number] 15:52:00 Test Item Value Reference Range Interpretation Comments Glucose Blood, POC (test code = 202 mg/dL 70-180 A [id number]) Lab Interpretation (test code = Abnormal 14422-1) [facility]2021-12-10 17:04:00 Test Item Value Reference Range Interpretation Comments Glucose Lvl (test code = Glucose Lvl) 259 70-99 [facility]2021-12-10 17:04:00 Test Item Value Reference Range Interpretation Comments BUN (test code = BUN) 49 7-22 [facility]2021-12-10 17:04:00 Test Item Value Reference Range Interpretation Comments Creatinine Lvl (test code = Creatinine 1.70 0.50-1.40 Lvl) [facility]2021-12-10 17:04:00 Test Item Value Reference Range Interpretation Comments Sodium Lvl (test code = Sodium Lvl) 137 135-145 [facility]2021-12-10 17:04:00 Test Item Value Reference Range Interpretation Comments Potassium Lvl (test code = Potassium 4.9 3.5-5.1 Lvl) [facility]2021-12-10 17:04:00 Test Item Value Reference Range Interpretation Comments Chloride Lvl (test code = Chloride Lvl) 105 95-109 [facility]2021-12-10 17:04:00 Test Item Value Reference Range Interpretation Comments CO2 (test code = CO2) 25 24-32 [facility]2021-12-10 17:04:00 Test Item Value Reference Range Interpretation Comments AGAP (test code = AGAP) 11.9 10.0-20.0 [facility]2021-12-10 17:04:00 Test Item Value Reference Range Interpretation Comments Calcium Lvl (test code = Calcium Lvl) 9.3 8.5-10.5 [facility]2021-12-10 17:04:00 Test Item Value Reference Range Interpretation Comments eGFR (test code = eGFR) 29 [facility]2021-12-10 17:04:00 Test Item Value Reference Range Interpretation Comments Lactic Acid Lvl (test code = Lactic 1.7 0.5-2.2 Acid Lvl) [id number] 17:04:00 Test Item Value Reference Range Interpretation Comments WBC (test code = WBC) 9.1 3.7-10.4 [id number] 17:04:00 Test Item Value Reference Range Interpretation Comments RBC (test code = RBC) 4.05 4.20-5.40 [id number] 17:04:00 Test Item Value Reference Range Interpretation Comments Hgb (test code = Hgb) 12.5 12.0-16.0 [id number] 17:04:00 Test Item Value Reference Range Interpretation Comments Hct (test code = Hct) 38.0 36.0-48.0 [place] [id number] 17:04:00 Test Item Value Reference Range Interpretation Comments MCV (test code = MCV) 93.8 80.0-98.0 [facility]LivtbbgKVGXVHCOLW2239-25-31 17:04:00 Test Item Value Reference Range Interpretation Comments MCH (test code = MCH) 30.8 pg 27.0-31.0 [facility] HospitalHittpwpQFKCYJUCBQ2718-14-54 17:04:00 Test Item Value Reference Range Interpretation Comments MCHC (test code = MCHC) 32.9 32.0-36.0 [facility] HospitalRsvdwvlAJVGPBKJWM2081-17-40 17:04:00 Test Item Value Reference Range Interpretation Comments RDW (test code = RDW) 15.6 11.5-14.5 [facility] Hos[id number] 17:04:00 Test Item Value Reference Range Interpretation Comments Platelet (test code = Platelet) 249 133-450 [facility] HospitalAbyoqmvECXQKKYBVF3841-44-20 17:04:00 Test Item Value Reference Range Interpretation Comments MPV (test code = MPV) 10.7 7.4-10.4 [facility] HospitalTkdufzfSVTVHTBDCZ1822-40-71 17:04:00 Test Item Value Reference Range Interpretation Comments RBC Morph (test code = Normal (03/30/21 11:04 RBC Morph) AM) [facility] HospitalMsblijxSCHLWXFNEV6168-83-72 17:04:00 Test Item Value Reference Range Interpretation Comments Plt Morph (test code = Normal (03/30/21 11:04 Plt Morph) AM) [place] [id number] 17:04:00 Test Item Value Reference Range Interpretation Comments Segs (test code = Segs) 64.5 45.0-75.0 [place] [id number] 17:04:00 Test Item Value Reference Range Interpretation Comments Lymphocytes (test code = Lymphocytes) 24.5 20.0-40.0 [place] [id number] 17:04:00 Test Item Value Reference Range Interpretation Comments Monocytes (test code = Monocytes) 9.0 2.0-12.0 [place] [id number] 17:04:00 Test Item Value Reference Range Interpretation Comments Eosinophils (test code = 1.4 See_Comment [A utomated message] The Eosinophils) system which ge nerated this result tra nsmitted reference range : <=4.0. The reference r nik was not used to int erpret this result as normal/abnormal . [place] [id number] 17:04:00 Test Item Value Reference Range Interpretation Comments Basophils (test code = 0.6 See_Comment [Aut omated message] The Basophils) system which ge nerated this result tra nsmitted reference range : <=1.0. The reference r nik was not used to int erpret this result as normal/abnormal . [id number] 17:04:00 Test Item Value Reference Range Interpretation Comments Neutrophils # (test code = Neutrophils 5.9 1.5-8.1 #) [facility] HospitalFfvruckOQFNWQNTYE4017-93-30 17:04:00 Test Item Value Reference Range Interpretation Comments Lymphocytes # (test code = Lymphocytes 2.2 1.0-5.5 #) [place] 663911-12-10 17:04:00 Test Item Value Reference Range Interpretation Comments Monocytes # (test code 0.8 See_Comment [Aut omated message] The = Monocytes #) system which generated this result tra nsmitted reference range : <=0.8. The reference r nik was not used to int erpret this result as normal/abnormal . [place] 663911-12-10 17:04:00 Test Item Value Reference Range Interpretation Comments Eosinophils # (test code 0.1 See_Comment [A utomated message] The = Eosinophils #) system whic h generated this result tra nsmitted reference range : <=0.5. The reference r nik was not used to int erpret this result as normal/abnormal . [place] 663911-12-10 17:04:00 Test Item Value Reference Range Interpretation Comments Basophils # (test code 0.1 See_Comment [Aut omated message] The = Basophils #) system which generated this result tra nsmitted reference range : <=0.2. The reference r nik was not used to int erpret this result as normal/abnormal . [place] 604071-12-09 21:38:00 Test Item Value Reference Range Interpretation Comments Glucose Lvl (test code = Glucose Lvl) 247 70-99 [place] 604071-12-09 21:38:00 Test Item Value Reference Range Interpretation Comments BUN (test code = BUN) 50 7-22 [place] 604071-12-09 21:38:00 Test Item Value Reference Range Interpretation Comments Creatinine Lvl (test code = Creatinine 1.83 0.50-1.40 Lvl) [place] 604071-12-09 21:38:00 Test Item Value Reference Range Interpretation Comments Sodium Lvl (test code = Sodium Lvl) 135 135-145 [place] 604071-12-09 21:38:00 Test Item Value Reference Range Interpretation Comments Potassium Lvl (test code = Potassium 3.9 3.5-5.1 Lvl) [place] 604071-12-09 21:38:00 Test Item Value Reference Range Interpretation Comments Chloride Lvl (test code = Chloride Lvl) 104 95-109 [place] 604071-12-09 21:38:00 Test Item Value Reference Range Interpretation Comments CO2 (test code = CO2) 23 24-32 [place] 604071-12-09 21:38:00 Test Item Value Reference Range Interpretation Comments AGAP (test code = AGAP) 11.9 10.0-20.0 [place] [address]-12-09 21:38:00 Test Item Value Reference Range Interpretation Comments Calcium Lvl (test code = Calcium Lvl) 8.8 8.5-10.5 [place] 604071-12-09 21:38:00 Test Item Value Reference Range Interpretation Comments B/C Ratio (test code = B/C Ratio) 27 1 6-25 [place] 604071-12-09 21:38:00 Test Item Value Reference Range Interpretation Comments Total Protein (test code = Total 7.4 6.4-8.4 Protein) [place] 604071-12-09 21:38:00 Test Item Value Reference Range Interpretation Comments Albumin Lvl (test code = Albumin Lvl) 3.2 3.5-5.0 [place] 604071-12-09 21:38:00 Test Item Value Reference Range Interpretation Comments Globulin (test code = Globulin) 4.2 2.7-4.2 [place] 604071-12-09 21:38:00 Test Item Value Reference Range Interpretation Comments A/G Ratio (test code = A/G Ratio) 0.8 1 0.7-1.6 [place] 604071-12-09 21:38:00 Test Item Value Reference Range Interpretation Comments ALT (test code = ALT) 34 See_Comment [Auto mated message] The system which ge nerated this result transmit katey reference range : <=65. The reference range was not used to interpr et this result as cindy l/abnormal. [facility]2021-12-09 21:38:00 Test Item Value Reference Range Interpretation Comments AST (test code = AST) 21 See_Comment [Auto mated message] The system which ge nerated this result transmit katey reference range : <=37. The reference range was not used to interpr et this result as cindy l/abnormal. [place] 604071-12-09 21:38:00 Test Item Value Reference Range Interpretation Comments Alk Phos (test code = Alk Phos) 118 39-136 [place] 604071-12-09 21:38:00 Test Item Value Reference Range Interpretation Comments Bili Total (test code = Bili Total) 0.3 0.2-1.3 [place] 604071-12-09 21:38:00 Test Item Value Reference Range Interpretation Comments eGFR (test code = eGFR) 27 [place] 604071-12-09 10:14:00 Test Item Value Reference Range Interpretation Comments Magnesium Lvl (test code = Magnesium 2.0 1.8-2.4 Lvl) [facility]2021-12-09 10:14:00 Test Item Value Reference Range Interpretation Comments Ketone Quantitative (test code = Ketone 0.14 Quantitative) [facility] HospitalNamddebBZIFSASOQC2654-07-57 10:14:00 Test Item Value Reference Range Interpretation Comments WBC (test code = WBC) 16.0 3.7-10.4 [place] 663911-12-09 10:14:00 Test Item Value Reference Range Interpretation Comments RBC (test code = RBC) 4.05 4.20-5.40 [place] 663911-12-09 10:14:00 Test Item Value Reference Range Interpretation Comments Hgb (test code = Hgb) 12.4 12.0-16.0 [place] 663911-12-09 10:14:00 Test Item Value Reference Range Interpretation Comments Hct (test code = Hct) 37.3 36.0-48.0 [place] 663911-12-09 10:14:00 Test Item Value Reference Range Interpretation Comments MCV (test code = MCV) 92.2 80.0-98.0 [place] 663911-12-09 10:14:00 Test Item Value Reference Range Interpretation Comments MCH (test code = MCH) 30.7 pg 27.0-31.0 [place] 663911-12-09 10:14:00 Test Item Value Reference Range Interpretation Comments MCHC (test code = MCHC) 33.2 32.0-36.0 [place] 663911-12-09 10:14:00 Test Item Value Reference Range Interpretation Comments RDW (test code = RDW) 15.7 11.5-14.5 [place] 663911-12-09 10:14:00 Test Item Value Reference Range Interpretation Comments Platelet (test code = Platelet) 240 133-450 [place] 663911-12-09 10:14:00 Test Item Value Reference Range Interpretation Comments MPV (test code = MPV) 9.9 7.4-10.4 [place] 663911-12-09 10:14:00 Test Item Value Reference Range Interpretation Comments Segs (test code = Segs) 86.4 45.0-75.0 [facility]FcecsbgWXZCQEVVFF5750-41-14 10:14:00 Test Item Value Reference Range Interpretation Comments Lymphocytes (test code = Lymphocytes) 8.2 20.0-40.0 [place] 663911-12-09 10:14:00 Test Item Value Reference Range Interpretation Comments Monocytes (test code = Monocytes) 5.1 2.0-12.0 [place] 663911-12-09 10:14:00 Test Item Value Reference Range Interpretation Comments Basophils (test code = 0.3 See_Comment [Aut omated message] The Basophils) system which ge nerated this result tra nsmitted reference range : <=1.0. The reference r nik was not used to int erpret this result as normal/abnormal . [place] 663911-12-09 10:14:00 Test Item Value Reference Range Interpretation Comments Neutrophils # (test code = Neutrophils 13.8 1.5-8.1 #) [place] 663911-12-09 10:14:00 Test Item Value Reference Range Interpretation Comments Lymphocytes # (test code = Lymphocytes 1.3 1.0-5.5 #) [place] 663911-12-09 10:14:00 Test Item Value Reference Range Interpretation Comments Monocytes # (test code 0.8 See_Comment [Aut omated message] The = Monocytes #) system which generated this result tra nsmitted reference range : <=0.8. The reference r nik was not used to int erpret this result as normal/abnormal . [place] 663911-12-09 10:14:00 Test Item Value Reference Range Interpretation Comments Basophils # (test code 0.1 See_Comment [Aut omated message] The = Basophils #) system which generated this result tra nsmitted reference range : <=0.2. The reference r nik was not used to int erpret this result as normal/abnormal . [place] 604071-12-09 10:14:00 Test Item Value Reference Range Interpretation Comments Lactic Acid Lvl (test code = Lactic 2.3 0.5-2.2 Acid Lvl) [place] 604071-12-09 06:54:00 Test Item Value Reference Range Interpretation Comments Lactic Acid Lvl (test code = Lactic 6.2 0.5-2.2 Acid Lvl) [place] 604071-12-09 06:54:00 Test Item Value Reference Range Interpretation Comments Procalcitonin Lvl (test 0.08 See_Comment [Au tomated message] code = Procalcitonin Lvl) Th e system which generated this result transmitted ref erence range: <=0.10. The reference range was not used to interpr et this result as normal/abnormal . [facility]2021-12-09 04:05:54 Test Item Value Reference Range Interpretation Comments Glucose Lvl (test code = Glucose Lvl) 371 70-99 [facility] [employer] [id number] 04:05:54 Test Item Value Reference Range Interpretation Comments BUN (test code = BUN) 40 7-22 [facility] [employer] [id number] 04:05:54 Test Item Value Reference Range Interpretation Comments Creatinine Lvl (test code = Creatinine 2.13 0.50-1.40 Lvl) [facility]2021-12-09 04:05:54 Test Item Value Reference Range Interpretation Comments Sodium Lvl (test code = Sodium Lvl) 134 135-145 [facility] [employer] [id number] 04:05:54 Test Item Value Reference Range Interpretation Comments Potassium Lvl (test code = Potassium 4.5 3.5-5.1 Lvl) [facility] [employer] [id number] 04:05:54 Test Item Value Reference Range Interpretation Comments Chloride Lvl (test code = Chloride Lvl) 100 95-109 [facility] [employer] [id number] 04:05:54 Test Item Value Reference Range Interpretation Comments CO2 (test code = CO2) 20 24-32 [facility] [id number] 04:05:54 Test Item Value Reference Range Interpretation Comments AGAP (test code = AGAP) 18.5 10.0-20.0 [facility] [id number] 04:05:54 Test Item Value Reference Range Interpretation Comments Calcium Lvl (test code = Calcium Lvl) 9.0 8.5-10.5 [facility] [employer] [id number] 04:05:54 Test Item Value Reference Range Interpretation Comments B/C Ratio (test code = B/C Ratio) 19 1 6-25 [facility] [employer] [id number] 04:05:54 Test Item Value Reference Range Interpretation Comments Total Protein (test code = Total 7.8 6.4-8.4 Protein) [facility] [employer]2021-12-09 04:05:54 Test Item Value Reference Range Interpretation Comments Albumin Lvl (test code = Albumin Lvl) 3.4 3.5-5.0 [facility]2021-12-09 04:05:54 Test Item Value Reference Range Interpretation Comments Globulin (test code = Globulin) 4.4 2.7-4.2 [facility]2021-12-09 04:05:54 Test Item Value Reference Range Interpretation Comments A/G Ratio (test code = A/G Ratio) 0.8 1 0.7-1.6 [facility]2021-12-09 04:05:54 Test Item Value Reference Range Interpretation Comments ALT (test code = ALT) 42 See_Comment [Auto mated message] The system which ge nerated this result transmit kaety reference range : <=65. The reference range was not used to interpr et this result as cindy l/abnormal. [facility]2021-12-09 04:05:54 Test Item Value Reference Range Interpretation Comments AST (test code = AST) 26 See_Comment [Auto mated message] The system which ge nerated this result transmit katey reference range : <=37. The reference range was not used to interpr et this result as cindy l/abnormal. [facility]2021-12-09 04:05:54 Test Item Value Reference Range Interpretation Comments Alk Phos (test code = Alk Phos) 126 39-136 [facility]2021-12-09 04:05:54 Test Item Value Reference Range Interpretation Comments Bili Total (test code = Bili Total) 0.3 0.2-1.3 [facility]2021-12-09 04:05:54 Test Item Value Reference Range Interpretation Comments eGFR (test code = eGFR) 22 [facility]2021-12-09 04:05:00 Test Item Value Reference Range Interpretation Comments Troponin-I (test code no gt See_Comment [Auto mated message] The = Troponin-I) system which g enerated this result transmit katey reference range : <=0.40. The reference r nik was not used to interpr et this result as cindy l/abnormal. [facility]2021-12-08 23:36:00 Test Item Value Reference Range Interpretation Comments Troponin-I (test code no gt See_Comment [Auto mated message] The = Troponin-I) system which g enerated this result transmit katey reference range : <=0.40. The reference r nik was not used to interpr et this result as cindy l/abnormal. [id number] 21:24:00 Test Item Value Reference Range Interpretation Comments Coronavirus (COVID-19) Not Detected (03/28/21 CATHY (test code = 3:24 PM) Coronavirus (COVID-19) CATHY) [facility] [id number] 19:57:00 Test Item Value Reference Range Interpretation Comments Total CK (test code = Total CK) 150 12-191 [facility] AND [id number] 19:57:00 Test Item Value Reference Range Interpretation Comments UA Color (test code = Light Yellow UA Color) *NA*(03/28/21 1:57 PM) [facility] AND [id number] 19:57:00 Test Item Value Reference Range Interpretation Comments UA Turbidity (test code = Clear (03/28/21 1:57 UA Turbidity) PM) [facility] AND [id number] 19:57:00 Test Item Value Reference Range Interpretation Comments UA Spec Grav (test code = UA Spec 1.008 1 Grav) [facility] AND [id number] 19:57:00 Test Item Value Reference Range Interpretation Comments UA pH (test code = UA pH) 5.0 1 5.0-8.0 [facility] AND [id number] 19:57:00 Test Item Value Reference Range Interpretation Comments UA Protein (test code Negative (03/28/21 1:57 = UA Protein) PM) [facility] [id number] 19:57:00 Test Item Value Reference Range Interpretation Comments UA Glucose (test code = UA Glucose) 150 mg/dL [facility] AND [id number] 19:57:00 Test Item Value Reference Range Interpretation Comments UA Ketones (test code Negative *NA*(03/28/21 = UA Ketones) 1:57 PM) [facility] [id number] 19:57:00 Test Item Value Reference Range Interpretation Comments UA Bili (test code = Negative *NA*(03/28/21 UA Bili) 1:57 PM) [facility] [id number] 19:57:00 Test Item Value Reference Range Interpretation Comments UA Blood (test code = Moderate *ABN*(03/28/21 UA Blood) 1:57 PM) [facility] [id number] 19:57:00 Test Item Value Reference Range Interpretation Comments UA Urobilinogen (test code = UA <=1.0 mg/dL 0.1-1.0 Urobilinogen) [facility] [id number] 19:57:00 Test Item Value Reference Range Interpretation Comments UA Nitrite (test code Negative (03/28/21 1:57 = UA Nitrite) PM) [facility] [id number] 19:57:00 Test Item Value Reference Range Interpretation Comments UA Leuk Est (test code Trace *ABN*(03/28/21 = UA Leuk Est) 1:57 PM) [facility] [id number] 19:57:00 Test Item Value Reference Range Interpretation Comments UA Sq Epi (test code = None Seen (03/28/21 1:57 UA Sq Epi) PM) [facility] [id number] 19:57:00 Test Item Value Reference Range Interpretation Comments UA WBC (test code = 5 See_Comment [Automa katey message] The UA WBC) system which ge nerated this result transmit katey reference range : <=5. The reference range was not used to interpr et this result as cindy l/abnormal. [facility] [id number] 19:57:00 Test Item Value Reference Range Interpretation Comments UA RBC (test code = 3 See_Comment [Automa katey message] The UA RBC) system which ge nerated this result transmit katey reference range : <=2. The reference range was not used to interpr et this result as cindy l/abnormal. [facility] [id number] 19:57:00 Test Item Value Reference Range Interpretation Comments UA Mucus (test code = UA Mucus) Few /LPF [facility] [id number] 19:53:00 Test Item Value Reference Range Interpretation Comments Troponin-I (test code no gt See_Comment [Auto mated message] The = Troponin-I) system which g enerated this result transmit katey reference range : <=0.40. The reference r nik was not used to interpr et this result as cindy l/abnormal. [facility] [id number] 19:53:00 Test Item Value Reference Range Interpretation Comments BNP (test code = BNP) 15 [facility] [employer] [id number] 19:53:00 Test Item Value Reference Range Interpretation Comments Total Protein (test code = Total 7.8 6.4-8.4 Protein) [facility] [id number] 19:53:00 Test Item Value Reference Range Interpretation Comments Albumin Lvl (test code = Albumin Lvl) 3.2 3.5-5.0 [facility] [id number] 19:53:00 Test Item Value Reference Range Interpretation Comments ALT (test code = ALT) 40 See_Comment [Auto mated message] The system which ge nerated this result transmit katey reference range : <=65. The reference range was not used to interpr et this result as cindy l/abnormal. [facility] [employer] [id number] 19:53:00 Test Item Value Reference Range Interpretation Comments AST (test code = AST) 32 See_Comment [Auto mated message] The system which ge nerated this result transmit katey reference range : <=37. The reference range was not used to interpr et this result as cindy l/abnormal. [facility] [employer] [id number] 19:53:00 Test Item Value Reference Range Interpretation Comments Alk Phos (test code = Alk Phos) 136 39-136 [facility] [employer] [id number] 19:53:00 Test Item Value Reference Range Interpretation Comments Bili Total (test code = Bili Total) 0.2 0.2-1.3 [facility] [employer] [id number] 19:53:00 Test Item Value Reference Range Interpretation Comments B/C Ratio (test code = B/C Ratio) 21 1 6-25 [facility] [employer] [id number] 19:53:00 Test Item Value Reference Range Interpretation Comments Globulin (test code = Globulin) 4.6 2.7-4.2 [id number] 19:53:00 Test Item Value Reference Range Interpretation Comments A/G Ratio (test code = A/G Ratio) 0.7 1 0.7-1.6 [facility]2021-12-08 19:53:00 Test Item Value Reference Range Interpretation Comments Magnesium Lvl (test code = Magnesium 2.0 1.8-2.4 Lvl) [facility]2021-12-08 19:53:00 Test Item Value Reference Range Interpretation Comments Phosphorus (test code = Phosphorus) 3.3 2.5-4.5 [place] 663911-12-08 19:53:00 Test Item Value Reference Range Interpretation Comments WBC (test code = WBC) 14.5 3.7-10.4 [place] 663911-12-08 19:53:00 Test Item Value Reference Range Interpretation Comments RBC (test code = RBC) 4.30 4.20-5.40 [facility]DnjugsfWWRZNPJJJQ6588-18-12 19:53:00 Test Item Value Reference Range Interpretation Comments Hgb (test code = Hgb) 13.2 12.0-16.0 [place] 663911-12-08 19:53:00 Test Item Value Reference Range Interpretation Comments Hct (test code = Hct) 40.3 36.0-48.0 [facility] HospitalUluuncvGXORTSQIFD3722-59-15 19:53:00 Test Item Value Reference Range Interpretation Comments MCV (test code = MCV) 93.7 80.0-98.0 [facility] HospitalJrfhnwhIOJKPAKUCM9453-32-63 19:53:00 Test Item Value Reference Range Interpretation Comments MCH (test code = MCH) 30.6 pg 27.0-31.0 [place] 663911-12-08 19:53:00 Test Item Value Reference Range Interpretation Comments MCHC (test code = MCHC) 32.7 32.0-36.0 [place] 663911-12-08 19:53:00 Test Item Value Reference Range Interpretation Comments RDW (test code = RDW) 15.6 11.5-14.5 [place] 663911-12-08 19:53:00 Test Item Value Reference Range Interpretation Comments Platelet (test code = Platelet) 253 133-450 [facility] HospitalVaxwfbwANIAFAGEZL5274-10-34 19:53:00 Test Item Value Reference Range Interpretation Comments MPV (test code = MPV) 9.5 7.4-10.4 [facility] Hospit[id number] 19:53:00 Test Item Value Reference Range Interpretation Comments Segs (test code = Segs) 88.0 45.0-75.0 [facility] HospitalQgrpjkyFOVOPYMXYR4376-28-74 19:53:00 Test Item Value Reference Range Interpretation Comments Lymphocytes (test code = Lymphocytes) 10.3 20.0-40.0 [facility] HospitalTdbmwnxUZRTGCIDUL9783-65-79 19:53:00 Test Item Value Reference Range Interpretation Comments Monocytes (test code = Monocytes) 1.3 2.0-12.0 [facility] HospitalTvxsgnxWUMYFCYFSL1867-05-00 19:53:00 Test Item Value Reference Range Interpretation Comments Eosinophils (test code = 0.1 See_Comment [A utomated message] The Eosinophils) system which ge nerated this result tra nsmitted reference range : <=4.0. The reference r nik was not used to int erpret this result as normal/abnormal . [facility] HospitalXplxhxqJCYKKHFPVA0107-15-68 19:53:00 Test Item Value Reference Range Interpretation Comments Basophils (test code = 0.3 See_Comment [Aut omated message] The Basophils) system which ge nerated this result tra nsmitted reference range : <=1.0. The reference r nik was not used to int erpret this result as normal/abnormal . [facility] HospitalYuwudgkUMHUEORUSX7249-12-06 19:53:00 Test Item Value Reference Range Interpretation Comments Neutrophils # (test code = Neutrophils 12.8 1.5-8.1 #) [facility] HospitalPnskddxQOVANXYZBZ6124-45-30 19:53:00 Test Item Value Reference Range Interpretation Comments Lymphocytes # (test code = Lymphocytes 1.5 1.0-5.5 #) [facility] HospitalPfhbekyDMQDGYFYLK5163-82-06 19:53:00 Test Item Value Reference Range Interpretation Comments Monocytes # (test code 0.2 See_Comment [Aut omated message] The = Monocytes #) system which generated this result tra nsmitted reference range : <=0.8. The reference r nik was not used to int erpret this result as normal/abnormal . [facility] [id number] 19:53:00 Test Item Value Reference Range Interpretation Comments Hgb A1C (test code = Hgb A1C) 7.8 [facility]] MICROALBUMIN, RANDOM URINE (W/CREATININE)2019-04-07 15:00:01 Test Item Value Reference Range Interpretation Comments Urine Microalbumin 45.9 mg/L No establ ished (test code = Urine reference range. Microalbumin) U Creatinine (test 81.60 mg/dl No establ ished code = 2161-8) reference ran ge. Urine Microalbuming 56.2 mg/g <=30.0 Creatinine Ratio; Above High Threshold (test code = 72977-7) [facility]] CMP W/[id number] 14:50:01 Test Item Value Reference Range Interpretation Comments Sodium Level 143 {mEq/l} 135-145 (test code = 2951-2) Potassium Level 4.4 {mEq/l} 3.5-5.1 (test code = 2823-3) Chloride Level; 110 {mEq/l} 95-109 Above High Threshold (test code = 5-0) Carbon Dioxide 25 {mEq/l} 24-32 (test code = 2027-9) AGAP (test code = 12.4 {mEq/l} 10.0-20.0 81566-6) Glucose Lvl; 110 mg/dl 70-99 Adult reference range Above High values reflect the Threshold (test clinical roshan delinesof the code = 2345-7) [employer]. Creatinine Lvl; 1.60 mg/dl [...] g/dl 2.7-4.2 High Threshold (test code = 12182-6) A/G Ratio (test 1.0 0.7-1.6 code = 1759-0) Calcium Level 10.3 mg/dl 8.5-10.5 Total (test code = 02154-3) ALT (test code = 32 u/l 0-65 1743-4) AST (test code = 21 u/l 0-37 00434-9) Bili Total (test 0.4 mg/dl 0.2-1.3 code = 1975-2) Alk Phos (test 99 u/l 39-136 The pediatric reference code = 1783-0) ranges for th is test represent a CLSI-basedtrans ference of the CALIPER prosper abase of pediatric refer ence intervals to eSiemens Mckinney analyzer (Clinical Biochemistry 46 (2013): 9083-4869). [facility] has not internally validated these reference ranges and therefore they should be used only in e context of a thoroughcl inical assessment. eGFR (test code = 32 The eGFR i s calculated 02442-0) {ML/MIN/1.7} using the CKD-E PI formula. In [...] National Kidney Disease Education Progr am(NKDEP) which carrie madera recommends that when the eGFR is used in patientswith ex tremes of body mass index for purposes of jules g dosing, the eGFR should be multiplied by t he estimated BMI. [facility]] LIPID [id number] 14:50:01 Test Item Value Reference Range Interpretation Comments Chol; Above High Threshold (test 331 mg/dl <=199 code = 2093-3) Trig; Above High Threshold (test 238 mg/dl <=149 code = 2571-8) HDL Cholesterol (test code = 62 mg/dl >=61 5-9) CHD Risk (test code = 95448-0) 5.34 3.90-5.80 LDL; Above High Threshold (test 221 mg/dl <=99 code = 39016-5) VLDL (test code = VLDL) 48 [facility]] T4, [id number] 14:50:01 Test Item Value Reference Range Interpretation Comments T4 Free (test code = 3024-7) 1.16 ng/dl 0.76-1.46 [facility]] TSH, 3RD [id number] 14:50:01 Test Item Value Reference Range Interpretation Comments TSH (test code = 19446-1) 2.130 {uIU/ml} 0.360-3.740 [facility]] VITAMIN D, 25-HYDROXY, [id number]/[id number] 14:50:01 Test Item Value Reference Range Interpretation Comments Vitamin D, 25-OH, 81.2 ng/ml 30.0-100.0 Reference range is based Total (test code on recommen dations in the = Vitamin D, [facility]ocrine[facility]ociet y Clinical 25-OH, Total) Practice Guide line (J Clin Endocrinol Udxqm0234;96:19 11-1930) [facility]] HEMOGLOBIN [id number] 14:50:01 Test Item Value Reference Range Interpretation Comments Hemoglobin A1c; Above High Threshold 6.7 % <=5.6 (test code = 4548-4) [facility] ([facility] Care In Office)2019-04-07 13:54:00 Test Item Value Reference Range Interpretation Comments Glucose POC Lifescan (test code = 115 A Glucose POC Lifes[facility]) [facility][O] Hemoglobin A1c (in office)2019-04-07 13:53:00 Test Item Value Reference Range Interpretation Comments HEMOGLOBIN A1c; Abnormal (test code = 6.4 A 4548-4) [facility]
[2022-05-20 19:00] LABS: Absolute Lymphocytes (CBC) 2.7 K/uL (0.7-4.9); Hematocrit 40.3 % (36.0-45.0); Lymphocytes % 28.5 % (15.3-44.8); MCV 91.5 fL (80-100); MPV 9.2 fL (7.6-11.3)
[2022-05-20 19:07] LABS: Protime INR 1.02
[2022-05-20 19:11] LABS: SARS-CoV-2 Antigen Rapid Res Negative (Negative)
[2022-05-20] MEDS ORDERED: NA CHLORIDE 0.9% 1,000 ML ONE ×2 (19:16→22:02)
[2022-05-20] MEDS ORDERED: FOLIC ACID 5 MG/ML VIAL ONE (19:17)
[2022-05-20 19:21] LABS: Potassium 4.2 mmol/L (3.5-5.1); Troponin High Sensitivity 8.9 pg/mL (<58.9)
--- NOTE | 2022-05-20 19:41 | ER ---
Nurse's Notes [facility] Name: Keren Hinton Age: 76 yrs Sex: Female : 1945 Arrival Date: 05/20/2022 Time: 17:41 Bed 23 Private MD: Steve Salazar Diagnosis: Cerebral infarction, unspecified;Other transient cerebral ischemic attacks and related syndromes Presentation: 05/20 17:52 Chief complaint: Patient states: sent from [facility]; last night having trouble falling jh5 asleep; my right arm didn't feel right, felt weak, i couldn't hold my toilet paper. I couldn't cut my food with my dominant right hand. This lasted about an hour and I am not back to normal, it's not 100% back to normal but not 100%. Coronavirus screen: Vaccine status: Client denies travel out of the [place] in the last 14 days. Ebola Screen: Patient negative for fever greater than or equal to 101.5 degrees Fahrenheit, and additional compatible Ebola Virus Disease symptoms Patient denies exposure to infectious person. Patient denies travel to an Ebola-affected area in the 21 days before illness onset. Initial Sepsis Screen: Does the patient meet any 2 criteria? No. Patient's initial sepsis screen is negative. Does the patient have a suspected source of infection? No. Patient's initial sepsis screen is negative. Risk Assessment: Do you want to hurt yourself or someone else? Patient reports no desire to harm self or others. Onset of symptoms was May 19, 2022. 17:52 Method Of Arrival: Ambulatory [facility] 17:52 Acuity: JOSEPH 3 jh5 Triage Assessment: 17:56 General: Appears in no apparent distress. slender, well groomed, well developed, well jh5 nourished, Behavior is calm, cooperative, appropriate for age. Pain: Denies pain. 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 - Social history:: Smoking status: Patient denies any tobacco usage or history of. - Family history:: not pertinent. - Hospitalizations: : No recent hospitalization is reported. Screenin:57 [facility] ED Fall Risk Assessment (Adult) History of falling in the last 3 months, jh5 including since admission No falls in past 3 months (0 pts) Confusion or Disorientation No (0 pts) Intoxicated or Sedated No (0 pts) Impaired Gait No (0 pts) Mobility Assist Device Used No (0 pt) Altered Elimination No (0 pt) Score/Fall Risk Level 0 - 2 = Low Risk. Abuse screen: Denies threats or abuse. Denies injuries from another. Nutritional screening: No deficits noted. Tuberculosis screening: No symptoms or risk factors identified. Assessment: 18:45 General: Appears in no apparent distress. comfortable, Behavior is calm, cooperative, ld1 appropriate for age. Pain: Denies pain. Neuro: Level of Consciousness is awake, alert, obeys commands, Oriented to person, place, time, situation, Appropriate for age Faith Doctor are equal bilaterally Moves all extremities. Gait is steady, Speech is normal, Facial symmetry appears normal. Cardiovascular: Capillary refill < 3 seconds Patient's skin is warm and dry. Rhythm is sinus rhythm. Respiratory: Airway is patent Respiratory effort is even, unlabored. GI: Abdomen is flat, non-distended. : No signs and/or symptoms were reported regarding the genitourinary system. EENT: No signs and/or symptoms were reported regarding the EENT system. Derm: No signs and/or symptoms reported regarding the dermatologic system. Musculoskeletal: No signs and/or symptoms reported regarding the musculoskeletal system. Vital Signs: 17:59 BP 154 / 74; Pulse 102; Resp 18; Temp 98.6; Pulse Ox 100% ; Weight 62.6 kg; Height 5 5 ft. 5 in. (165.10 cm); Pain 0/10; 18:45 BP 171 / 74; Pulse 90; Resp 18; Pulse Ox 100% on R/A; Pain 0/10; ld1 17:59 Body Mass Index 22.96 (62.60 kg, 165.10 cm) [facility] ED Course: 17:41 Patient arrived in ED. am2 17:41 Steve Salazar MD is Private Physician. am2 17:43 Fede Fontana MD is Attending Physician. rn 17:56 Triage completed. 5 17:56 Arm band placed on right wrist. 5 18:44 Isabella Bolden, LANIE is Primary Nurse. ld1 18:45 Patient has correct armband on for positive identification. Placed in gown. Bed in low ld1 position. Call light in reach. Side rails up X2. blemish remover on. Pulse ox on. NIBP on. Door closed. Noise minimized. Warm blanket given. 18:45 No provider procedures requiring assistance completed. ld1 18:53 SARS RAPID Sent. ld1 18:53 Inserted saline lock: 20 gauge in right antecubital area, using aseptic technique. ld1 Blood collected. 19:02 SARS RAPID Sent. ld1 19:08 Attending Physician role handed off by Fede Fontana MD [facility] 19:08 Milo Frots MD is Attending Physician. [facility] 19:16 Primary Nurse role handed off by Isabella Bolden, LANIE mw2 19:22 CT Head Brain wo Cont In Process Unspecified. EDMS 19:[address] In Process Unspecified. EDMS 19:39 Steve Salazar MD is Hospitalizing Provider. florentin Administered Medications: 19:32 Drug: foLIC Acid 1 mg Route: IVPB; Site: right antecubital; lg3 19:32 Drug: NS 0.9% 1000 ml Route: IV; Rate: 1 bolus; Site: right antecubital; lg3 20:08 Drug: Pepcid (famotidine) 20 mg Route: IVP; Site: right antecubital; lg3 20:09 Drug: PlaVIX (clopidogrel) 75 mg Route: PO; lg3 20:09 Drug: Lipitor (atorvastatin) 20 mg Route: PO; lg3 20:09 Drug: Aspirin 81 mg Route: PO; lg3 Medication: 18:45 VIS not applicable for this client. ld1 Outcome: 19:40 Decision to Hospitalize by Provider. [facility] 05/21 13:02 Patient left the ED. aa5 Signatures: Dispatcher [employer] EDMS Milo Frost MD MD cha Nieto, Roman, MD MD rn Calderon, Audri, RN RN aa5 Tamar Morales MyKena mw2 Tammy Castillo RN RN lg3 Isabella Bolden, LANIE RN ld1 Fadumo Snow, RN RN jh5
--- NOTE | 2022-05-20 19:41 | EDPHYS ---
Physician Documentation [facility] Name: Keren Hinton Age: 76 yrs Sex: Female : 1945 Arrival Date: 05/20/2022 Time: 17:41 Bed 23 Private MD: Steve Arthur ED Physician Milo Frost HPI: 05/20 18:13 This 76 yrs old Female presents to ER via Ambulatory with complaints of possible tia. rn 18:13 The patient presents to the emergency department with weakness of the right upper rn extremity, that is moderate. Onset: The symptoms/episode began/occurred last night. Context: occurred at home, occurred while the patient was at rest. Associated signs and symptoms: Pertinent positives: headache, weakness, Pertinent negatives: fever, seizure, syncope, blurred vision, double vision, visual field changes, loss of vision. Severity of symptoms: At their worst the symptoms were moderate in the emergency department the symptoms have improved. Current symptoms:. The patient has not experienced similar symptoms in the past. The patient has not recently seen a physician. 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 Improved a little after chewing 3 aspirin. Seen by pcp today who sent her in for stroke eval. Symptoms have not completely resolved. NO chest pain. No head injury. Headache has resolved. . 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 - Social history:: Smoking status: Patient denies any tobacco usage or history of. - Family history:: not pertinent. - Hospitalizations: : No recent hospitalization is reported. ROS: 18:13 Constitutional: Negative for fever, chills, and weight loss, Eyes: Negative for injury, rn pain, redness, and discharge, Neck: Negative for injury, pain, and swelling, Cardiovascular: Negative for chest pain, palpitations, and edema, Respiratory: Negative for shortness of breath, cough, wheezing, and pleuritic chest pain, Abdomen/GI: Negative for abdominal pain, nausea, vomiting, diarrhea, and constipation, Back: Negative for injury and pain, MS/Extremity: Negative for injury and deformity, Skin: Negative for injury, rash, and discoloration, Neuro: Negative for numbness, tingling, and seizure Exam: 18:13 Constitutional: This is a well developed, well nourished patient who is awake, alert, rn and in no acute distress. Head/Face: Normocephalic, atraumatic. Cardiovascular: Regular rate and rhythm with a normal S1 and S2. No gallops, murmurs, or rubs. Normal PMI, no JVD. No pulse deficits. Respiratory: Lungs have equal breath sounds bilaterally, clear to auscultation and percussion. No rales, rhonchi or wheezes noted. No increased work of breathing, no retractions or nasal flaring. Abdomen/GI: Soft, non-tender, with normal bowel sounds. No distension or tympany. No guarding or rebound. No evidence of tenderness throughout. Skin: Warm, dry with normal turgor. Normal color with no rashes, no lesions, and no evidence of cellulitis. MS/ Extremity: Pulses equal, no cyanosis. Neurovascular intact. Full, normal range of motion. Equal circumference. Neuro: Awake and alert, GCS 15, oriented to person, place, time, and situation. Cranial nerves II-XII grossly intact. Motor strength 5/5 in all extremities except for slight decrease in color straining bag washer strength in right hand. Sensory grossly intact. Normal gait. 19:42 ECG was reviewed by the Attending Physician. [facility] Vital Signs: 17:59 BP 154 / 74; Pulse 102; Resp 18; Temp 98.6; Pulse Ox 100% ; Weight 62.6 kg; Height 5 jh5 ft. 5 in. (165.10 cm); Pain 0/10; 18:45 BP 171 / 74; Pulse 90; Resp 18; Pulse Ox 100% on R/A; Pain 0/10; ld1 17:59 Body Mass Index 22.96 (62.60 kg, 165.10 cm) jh5 MDM: 17:43 Patient medically screened. rn 19:38 Data reviewed: vital signs, nurses notes, lab test result(s), EKG, radiologic studies, [facility] CT scan, plain films. Consideration of Admission/Observation Patient was admitted/placed on observation. Escalation of care including admission/observation considered. Management of patient was discussed with the following: Primary Care Provider: dr arthur, admit, mri am, consult benjamin. I considered the following discharge prescriptions or medication management in the emergency department Medications were administered in the Emergency Department. See MAR. Independent interpretation of the following test(s) in the Emergency Department CT Scan: My interpretation is nad. Test considered but Not performed: MRI: will do in the am. Care significantly affected by the following chronic conditions: Diabetes, Hypertension, Cancer. 21:02 Counseling: I had a detailed discussion with the patient and/or guardian regarding: the florentin historical points, exam findings, and any diagnostic results supporting the discharge/admit diagnosis, lab results, radiology results, the need for outpatient follow up, the need for further work-up and treatment in the hospital. 21:06 ED course: dr alexander no change in plan, keep here, mri in am. [facility] 05/20 17:44 Order name: Basic Metabolic Panel; Complete Time: 19:25 05/20 17:44 Order name: CBC with Diff; Complete Time: 19:08 05/20 17:44 Order name: High Sensitivity Troponin; Complete Time: 19:25 05/20 17:44 Order name: Protime (+inr); Complete Time: 19:08 05/20 17:44 Order name: Ptt, Activated; Complete Time: 19:08 05/20 17:44 Order name: SARS RAPID; Complete Time: 19:14 rn 05/20 17:44 Order name: CT Head Brain wo Cont; Complete Time: 20:35 05/20 17:44 Order name: Head Angio CT; Complete Time: 20:35 05/20 19:07 Order name: Glucose, Ancillary Testing; Complete Time: 19:08 [facility] 05/20 23:00 Order name: Lipid Profile EDME 05/21 04:31 Order name: CBC with Automated Diff EDME 05/21 04:56 Order name: Basic Metabolic Panel [facility] 05/21 12:47 Order name: MRI EDME 05/20 17:44 Order name: EKG; Complete Time: 17:45 rn 05/20 17:44 Order name: Accucheck; Complete Time: 18:55 rn 05/20 17:44 Order name: Cardiac monitoring; Complete Time: 18:44 rn 05/20 17:44 Order name: EKG - Nurse/Tech; Complete Time: 18:44 rn 05/20 17:44 Order name: IV Saline Lock; Complete Time: 18:53 rn 05/20 17:44 Order name: Labs collected and sent; Complete Time: 18:53 rn 05/20 17:44 Order name: NPO; Complete Time: 18:44 rn 05/20 17:44 Order name: O2 Per Protocol; Complete Time: 18:44 rn 05/20 17:44 Order name: O2 Sat Monitoring; Complete Time: 18:44 rn 05/20 19:55 Order name: CONS Physician Consult EDME 05/20 17:44 Order name: Stroke Swallow Screen; Complete Time: 18:44 rn EC:42 Rate is 88 beats/min. Rhythm is regular. QRS [place] is Normal. SC interval is normal. QRS florentin interval is normal. QT interval is normal. No Q waves. T waves are Normal. No ST changes noted. Clinical impression: NSR w/ Non-specific ST/T Changes and No evidence of ischemia. Interpreted by me. Reviewed by me. Administered Medications: 19:32 Drug: foLIC Acid 1 mg Route: IVPB; Site: right antecubital; lg3 19:32 Drug: NS 0.9% 1000 ml Route: IV; Rate: 1 bolus; Site: right antecubital; lg3 20:08 Drug: Pepcid (famotidine) 20 mg Route: IVP; Site: right antecubital; lg3 20:09 Drug: PlaVIX (clopidogrel) 75 mg Route: PO; lg3 20:09 Drug: Lipitor (atorvastatin) 20 mg Route: PO; lg3 20:09 Drug: Aspirin 81 mg Route: PO; lg3 Disposition Summary: 05/20/22 19:40 Hospitalization Ordered Hospitalization Status: Observation florentin Provider: Steve Arthur florentin Condition: Fair florentin Problem: new florentin Symptoms: have improved florentin Bed/Room Type: Standard florentin Location: Telemetry/MedSurg (observation)(05/21/22 12:26) dw Room Assignment: 211(05/21/22 12:26) dw Diagnosis - Cerebral infarction, unspecified florentin - Other transient cerebral ischemic attacks and related syndromes florentin Forms: - Medication Reconciliation Form florentin - SBAR form florentin Signatures: Dispatcher [employer] EDKrystin Price RN RN dw Anderson, Corey, MD MD cha Nieto, Roman, MD MD rn Gibson, Lacie, RN RN lg3 Fadumo Snow RN RN jh5 Corrections: (The following items were deleted from the chart) 19:45 19:40 Telemetry/MedSurg (observation) florentin dw 19:45 19:40 florentin dw 05/21 12:05/20 19:45 [facility] ER HOLD dw dw 05/21 12:05/20 19:45 ERHOLD- dw dw
--- NOTE | 2022-05-20 19:55 | RAD REPORT ---
EXAM DESCRIPTION: CT - Head Brain Wo Cont - 05/20/2022 7:21 pm CLINICAL HISTORY: weakness, dizziness COMPARISON: <Comparisons> TECHNIQUE: All CT scans are performed using dose optimization technique as appropriate and may inclu de automated exposure control or mA/KV adjustment according to patient size. FINDINGS: No intracranial hemorrhage, hydrocephalus or extra-axial fluid collection.No areas of brai n edema or evidence of midline shift. The paranasal sinuses and mastoids are clear. The calvarium is intact. IMPRESSION: No acute intracranial abnormality.
--- NOTE | 2022-05-20 20:00 | RAD REPORT ---
EXAM DESCRIPTION: CT - Head angio - 05/20/2022 7:24 pm CLINICAL HISTORY: weakness, dizziness COMPARISON: Same-day head CT TECHNIQUE: CT angiography of the head was performed with MIPs. All CT scans are performed using dose optimization technique as appropriate and may include automated exposure control or mA/KV adjustment according to patient size. FINDINGS: Anterior circulation: No aneurysm or large vessel occlusion. Severe focal stenosis of the right cavernous carotid No arteri ovenous malformation identified. Posterior circulation: Mild to moderate stenosis of the right proximal P2 segment of the posterior cerebral artery. Severe focal stenosis of the right PCOM. No arteriovenous malformation identified. Left dominant vertebral a rtery. IMPRESSION: Severe right cavernous carotid focal stenosis. Mild to moderate focal stenosis of the ri ght P2 segment of the posterior cerebral artery. Question severe focal stenosis of the right PCOM whi ch may be of little clinical significance. .
[2022-05-20] MEDS ORDERED: ASPIRIN 81 MG CHEWABLE TABLET ONE (20:06)
[2022-05-20] MEDS ORDERED: CLOPIDOGREL 75 MG TABLET ONE (20:06)
[2022-05-20] MEDS ORDERED: ATORVASTATIN 20 MG TAB ONE (20:06)
[2022-05-20] MEDS ORDERED: FAMOTIDINE 20 MG/2 ML VIAL IV ONE (20:06)
[2022-05-20] MEDS: FAMOTIDINE 20 MG/2 ML VIAL IV SCH (21:24)
[2022-05-20] MEDS: NA CHLORIDE 0.9% 1,000 ML IV SCH (21:24)
[2022-05-20] MEDS ORDERED: ONDANSETRON 4 MG/2 ML VIAL IV PRN (21:24)
[2022-05-20 22:21] VITALS: BMI 22.9
[2022-05-20] MEDS ORDERED: LEVALBUTEROL 1.25 MG/3 ML NEB ONE (23:06)
[2022-05-21] MEDS: ACETAMINOPHEN 500 MG TAB PO PRN ×2 (04:17→14:16)
[2022-05-21] MEDS ORDERED: ACETAMINOPHEN 325 MG TABLET ONE (04:18)
[2022-05-21 04:27] LABS: Absolute Lymphocytes (CBC) 3.1 K/uL (0.7-4.9); Hematocrit 35.7 % (36.0-45.0); Lymphocytes % 37.5 % (15.3-44.8); MCV 92.2 fL (80-100); MPV 9.2 fL (7.6-11.3); RBC Red Blood Cell Count 3.87 M/uL (3.86-4.86)
[2022-05-21 04:52] LABS: Potassium 4.2 mmol/L (3.5-5.1)
[2022-05-21] MEDS: NA CHLORIDE 0.9% 1,000 ML IV SCH ×2 (07:24→13:38)
[2022-05-21] MEDS ORDERED: NA CHLORIDE 0.9% 1,000 ML ONE (07:35)
[2022-05-21] MEDS ORDERED: ASPIRIN 81 MG CHEWABLE TABLET PO SCH (09:00)
[2022-05-21] MEDS: FAMOTIDINE 20 MG/2 ML VIAL IV SCH ×2 (09:00→20:35)
[2022-05-21] MEDS ORDERED: FOLIC ACID 1 MG in NA CHLORIDE 0.9% 50 ML IV SCH (09:00)
[2022-05-21] MEDS ORDERED: CLOPIDOGREL 75 MG TABLET PO SCH (09:00)
[2022-05-21] MEDS ORDERED: ASPIRIN 81 MG CHEWABLE TABLET ONE (09:29)
[2022-05-21] MEDS ORDERED: CLOPIDOGREL 75 MG TABLET ONE (09:29)
[2022-05-21] MEDS ORDERED: FAMOTIDINE 20 MG TAB ONE (09:30)
[2022-05-21] MEDS ORDERED: D50W 25 GM/50 ML SYRINGE IV PRN (10:13)
[2022-05-21] MEDS ORDERED: GLUCAGON 1 MG/VIAL IM PRN (10:13)
[2022-05-21] MEDS ORDERED: D10W 125 ML IV PRN (10:18)
[2022-05-21] MEDS: INSULIN -REGULAR HUMAN 50 UNIT/0.5 ML ML SQ SCH ×3 (11:29→20:11)
--- NOTE | 2022-05-21 12:46 | RAD REPORT ---
EXAM DESCRIPTION: MRI - Brain Wo Cont - 05/21/2022 10:33 am CLINICAL HISTORY: cva COMPARISON: Head Brain Wo Cont dated 05/20/2022 TECHNIQUE: Sagittal T1-weighted images were obtained along with axial PD, heavily T2-weighted and T2 -FLAIR images. Axial DWI and ADC mapping sequences were also obtained along with coronal heavily T2-w eighted images. FINDINGS: No intracranial hemorrhage is present. No mass effect, edema or midline shift. Diffusion-w eighted imaging shows 2 punctate areas of hyperintense signal cortical in location. These appear to h ave correlates on the ADC mapping sequence. These punctate foci are in the left cerebral hemisphere b elieved to be at the precentral sulcus. No associated edema on T2 or IR sequencing. No extra-axial fl uid collections. Wayne-matter/white matter junction is preserved. Signal voids are seen as a normal fi nding in the major intracranial vessels. No significant atrophy changes are present. Ventricles in pr oportion to the brain parenchymal volume. No measurable chronic ischemic change seen. No globe or orbital content abnormality. No sella or supra sella mass. Mastoid air cells and paranasal sinuses are clear. IMPRESSION: Two punctate areas of abnormal signal in the left cerebral cortex at the precentral sulc us. These 2 punctate foci believed to be areas of acute/ subacute nonhemorrhagic infarction. No hemorrhage, mass, edema or other acute intracranial finding.
--- NOTE | 2022-05-21 16:56 | EKG ---
Test Date: 2022-05-20 Test Time: 18:40:52 Riveter: JIE MEASUREMENT RESULTS: Intervals: Rate: 88 [place]: 176 QRSD: 108 QT: 374 QTc: 452 [place]: P: 81 [place]: 176 QRS: 73 T: 53 INTERPRETIVE STATEMENTS: Normal sinus rhythm Incomplete right bundle branch block Borderline ECG Compared to ECG 10/17/2018 19:58:47 Sinus tachycardia no longer present Electronically Signed On 05-21-22 16:53:43 [employer] by Dipesh Chaves
[2022-05-21] MEDS ORDERED: ATORVASTATIN 10 MG TAB PO SCH (21:00)
[2022-05-21 23:22] VITALS: O2SAT 97
[2022-05-22] MEDS: NA CHLORIDE 0.9% 1,000 ML IV SCH (03:45)
[2022-05-22 04:29] VITALS: BP 155/66; TEMP 98.3
[2022-05-22] MEDS ORDERED: LEVOTHYROXINE SOD 0.125 MG TAB PO SCH (06:30)
--- NOTE | 2022-05-22 15:02 | CON ---
Reason For Consultation: Stroke. History Of Present Illness: Ms. Hinton is a 76-year-old, right-handed, patient with history of noninsulin dependent diabetes mellitus, Hodgkin lymphoma, colon and bladder cancer, who has had r adiation and thyroid dysfunction comes to [facility] with sudden onset right hand weakness a nd incoordination. The event occurred around 3:00 a.m. on 05/20/2022. She went to the bathroom and found out she could not hold on the toilet paper properly, things would slip from her right hand and she had to use the left hand to manipulate things and move the right hand. There was mild weakness i n the forearm, but no significant proximal weakness. She denied right facial weakness, right leg wea kness, and no symptoms on the left side. She went back to sleep, did not come into the hospital unti l later on that day after she had seen her primary care physician, Dr. Salazar. He actually advised her to come to the hospital. At [facility], head CT scan was negative for any acute ischemi c or hemorrhagic change. It should be noted, she is well out of the window of TNKs as her symptom on set was around 3:30 in the morning and she got to the hospital around 5:41 in the afternoon. There w as a significant finding on her CT angiogram of the head, identified severe right cavernous carotid f ocal stenosis. There was mild to moderate focal stenosis in the right P2 segment of the posterior ce rebral artery. Also, question of severe focal stenosis in the right PCOM, which the radiologist felt to be of little clinical significance. Patient said at the time of onset of her symptoms, she took 3 aspirins. Full-dose aspirin is 325 mg and she and then the next day when she came to [facility], she received 81 mg aspirin. She also had a fluid bolus and was put on Plavix obed g with Lipitor, which she was taking low-dose 10 mg at night. She will continue her Synthroid and veliz d her blood sugars managed. Brain MRI done the following day identified 2 punctate areas of signal a bnormality in the left cerebral cortex of the precentral sulcus. These were felt to be acute to suba cute. There is no hemorrhagic conversion. The patient's symptoms actually began to resolve at the t itzel of my evaluation, which was on 05/21/2022. Around lunchtime, symptoms completely resolved. The transfer center in [place] was contacted and the patient was transferred to Dr. Teto Oconnell for larg e vessel intervention. Past Medical History: Colon and bladder cancer; Hodgkin lymphoma; diabetes mellitus, non-insulin dep endent; hypothyroidism; and she has received radiation. Family History: Noncontributory. Social History: No alcohol, tobacco, or IV drug use. Patient resides with . Allergies: NO KNOWN DRUG ALLERGIES. Medications: At hospitalization, Tylenol 650 every 6 hours, aspirin 81 mg daily, Lipitor 10 mg at be dtime, Plavix 75 mg daily, Pepcid 20 mg daily, folic acid 1 mg daily, Synthroid 0.125 mg daily, Zofra n 4 mg every 6 hours as needed. Review of Systems: No fevers, chills, nausea, vomiting, myalgias, arthralgias, rash, headache, weight changes, psychiatr ic complaints. No gastrointestinal or genitourinary issues. Physical Examination: Vital Signs: Blood pressure 155/66, pulse 81, respiratory rate 14, temperature 98.2, oxygen saturati on 96% to 97% on room air. Weight 138 pounds, height 5 feet 5 inches, BMI 23.0. General: Ms. Hinton is resting comfortably in bed. She is in no acute distress. HEENT: She is normocephalic, atraumatic. Sclerae anicteric. Oropharynx is pink and moist. Neck: Supple. Chest: Clear. Heart: Regular. Extremities: Show no clubbing, cyanosis, or edema. Neurological: She is alert and oriented to person, place, situation, and time. Follows all commands appropriately. On cranial nerve examination, she has no focal deficits on 2 through 12. Motor exam 5/5 proximally and distally in upper and lower extremities. Sensation, she has mild stocking-glove loss, light touch temperature in arms and legs. Reflexes 1+ in upper and lower extremities and 0 at the ankles. Coordination is intact in upper and lower extremities. Gait: Good stance, right arm sw ing. Laboratory Studies: Complete blood count with differential is completely normal. Coagulation panel showed a normal pattern. INR 1.02. Chemistries: Remarkable for creatinine elevated at 1.52, after hydration 1.35; glucose ranged from 139 to 259; calcium initially was 10.5, after hydration 8.8; sodi um 140; potassium 4.2; chloride 110; carbon dioxide 26; BUN 28. Her LDL cholesterol is 123, HDL 46. Her cholesterol to HDL ratio is 5. Total cholesterol 330, triglycerides 306. COVID-19 testing is negative. Her electrocardiogram shows normal sinus rhythm with incomplete right bundle-branch block. Assessment: Ms. Hinton is a 76-year-old patient with 2 punctate acute to subacute stroke in the left cerebral cortex of the precentral gyrus, likely accounting for her hand weakness, numbness, and mild incoordination that actually have now resolved. In addition, she has severe right cavernous carotid focal stenosis, mild to moderate focal stenosis on the right, P2 segment of posterior cerebral artery , and severe focal stenosis in the right PCOM. She also has hypothyroidism, diabetes mellitus, hyper tension, Hodgkin lymphoma with history of colon and bladder cancer and has had radiation. Plan: She is was transferred to [facility] in [place] for large vessel intervention under Dr Shantanu Oconnell. She will continue aspirin, Plavix, folic acid, and high-dose statin in addition to h er Synthroid and aggressive management of diabetes mellitus. She did have mild permissive hypertensi on during the time of her stroke. At this point, she has no focal neurological deficits and is recov ered very well from her acute stroke. She may follow up in Dr. Moran's clinic in the 1-2 months a fter she has had the intervention in [facility]. KIMBERLI/FAIZAN Voice ID: [id number] Report ID: [id number]
--- NOTE | 2022-05-22 15:47 | PN ---
Date of Progress Note: 05/22/2022 The patient was accepted in [place] for the endovascular procedures as described and was transferred. Vital signs are stable, basically back to normal at this stage. HR/MODL Voice ID: [id number] Report ID: [id number]
--- NOTE | 2022-05-22 15:47 | HP ---
Date of Admission: 05/21/2022 Patient states she feels much better this afternoon, almost back to normal. No sensory deficit. Min imum amount of coordination issue with her fingers. Good tone and movement, otherwise. Plan to be m gail to transfer to [place] for possible endovascular procedures with some changes on the CT and MRI. Once these arrangements were made, the patient will be transferred. HR/MODL Voice ID: [id number]
--- NOTE | 2022-05-27 11:43 | HP ---
Date of Admission: 05/21/2022 Chief Complaint: Weakness, right upper extremity. History Of Present Illness: The patient presented to the office with the above outlined symptoms. S he stated she woke up at about 3 in the morning. Was hungry, got up and noticed her arm on the right was not as mobile as it had been when she went to sleep. Associated with this was some clumsiness, some heaviness, and some paresthesias. She took a couple of aspirins and symptoms improve d somewhat. She then was seen in the office. Still had some residual symptoms and clinical findings as far as the clumsiness and heaviness and was felt that she had a TIA and CVA and was sent to the e mergency room for further evaluation. Past Medical History: The patient has a history of IDDM and fairly good control. Also has a history of lymphoma a number of years ago, and hypertension. Social History: Nonsmoker, nondrinker. Family History: Noncontributory. Physical Examination: General: Patient is a well-built, elderly female. Vital Signs: Stable. Head and Neck: Normocephalic. Pupils are equal and reactive to light and accommodation. Fundi nega tive. Trachea midline. Thyroid not palpable. ENT negative. Chest: Clear to P and A. Cardiovascular: PMI at midclavicular line. Heart sounds normal. Peripheral pulses present and equal bilaterally. Abdomen: No organomegaly. Bowel sounds present. Extremities: All extremities normal except for the right upper, which showed some decreased strength , some minimal sensory deficit and some minimal coordination deficit. Rectal/Pelvic: Deferred. Impression: Transient ischemic attack; cerebrovascular accident; insulin-dependent diabetes mellitus , good control; hypertension, good control. Plan: Patient will be admitted, start her on Plavix. Continue with the aspirin. Imaging will be do ne in the form of CT scans and MRIs and depending on the results, further treatment will be institute d including daily folic acid and statin treatment, although patient is on low-dose statin at present based on her diabetic doctor's recommendation. Consultation will also be obtained with [facility], Dr. Moran. HR/MODL Voice ID: [id number]
== END 2022-05-22 07:45 | disposition home or self-care (01) | DRG 66 ==
LOC: ER 17:38 → ERHOLD 19:51 → 2ND 05-21 12:32 → OBSVTOIN 05-21 14:01
PROVIDERS: ADMIT Family Medicine; ATTEND Family Medicine
DX: I63.9 Cerebral infarction, unspecified (principal); G83.21 Monoplegia of upper limb affecting right dominant side; R20.0 Anesthesia of skin; R27.8 Other lack of coordination; I65.21 Occlusion and stenosis of right carotid artery; I10 Essential (primary) hypertension; E11.9 Type 2 diabetes mellitus without complications; E03.9 Hypothyroidism, unspecified; I45.10 Unspecified right bundle-branch block; Z85.038 Personal history of other malignant neoplasm of large intestine; Z85.51 Personal history of malignant neoplasm of bladder; Z79.899 Other long term (current) drug therapy; Z85.71 Personal history of Hodgkin lymphoma; Z20.822 Contact with and (suspected) exposure to COVID-19
CPT/HCPCS: 36415; 70450; 70496; 70551; 80048; 80061; 82947; 84484; 85025; 85610; 85730; 87811; 93005; 96374; 96375; 99284; G0378; J1815; J7030; J7614; Q9967

== ENCOUNTER 2023-01-29 12:15 | Emergency (ER) | payer OTHER ==
--- OUTSIDE RECORDS SUMMARY | 2023-01-29 12:22 | XMS REPORT | Continuity of Care Document ---
:1945 Author Organization [facility] t Address [address] [place] [address] Care Team Providers Name Role Phone MILENA ARIZA Primary Care Physician Unavailable JEREL BRIDGES Attending Clinician Unavailable MICHELLE SAM Attending Clinician Unavailable Shahbaz Powers MD Attending Clinician Jeevan DIAZ, Yenni Bullock Attending Clinician George Love MD Attending Clinician Janelle Rea Attending Clinician JEREL BRIDGES M.D. Attending Clinician Unavailable MICHELLE SAM R.N. Attending Clinician Unavailable Sylvia Owusu Attending Clinician SHAHBAZ POWERS Admitting Clinician Unavailable Janelle Rea Admitting Clinician Payers Payer Name Policy Type Policy Number Effective Date Expiration Date S renée [employer] MEDICARE PPO [id number] 2013 00:00:00 Problems Condition Condition Condition Status Onset Resolution Last Treating Co mments Source Name Details Category Date Date Treatment Clinician Date Hypothyroi Hypothyroi Disease Recurre Methodi d d nce 05-22 st 00:00: Hospita 00 l Vitamin D Vitamin D Disease Active 2021-04 UT insufficie insufficie -23 He alth ncy ncy 00:00: 00 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 hyperlipid 05-13 He alth emia emia 00:00: 00 DESATURATI DESATURAT Diagnosis Active 2020-042021-03-30 Memoria ON AFTER ION AFTER 05-29 06:32:00 l OUT PT OUT PT 00:00: [place] SURGERY SURGERY 00 Active 03/28/2021 [place] ACUTE ACUTE Diagnosis Active 2020-042021-04-11 Mem oria RESPIRATOR RESPIRATOR 05-29 21:46:00 l Y FAILURE Y FAILURE 00:00: Herm harlan WITH WITH 00 HYPOXIA HYPOXIA Active 03/28/2021 [place] Diabetes Diabetes Disease Active UT mellitus, mellitus, 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 00:00: 00 CKD CKD Disease Active UT (chronic (chronic 08-22 Health kidney kidney 00:00: disease) disease) 00 History of History of Disease Active U T head and head and 08-22 [...] UNSPECIFIE 08-20 10:39:00 l D D 00:01: [place] MENOPAUSAL MENOPAUSAL 00 AND PER AND PER Active 08/21/2015 OPID [place] Acute Acute Problem Active 2021-04-02 Memor ia respirator respirator 09:12:48 l y failure y failure Herm harlan (disorder) (disorder) Active Problem 04/02/2021 [place] History of History Problem Active 2021-04-02 Memoria - of - 09:12:48 l malignant malignant Herm harlan neoplasm neoplasm (*) (*) (context-d (context-d ependent ependent category) category) Active Problem 04/02/2021 [place] Injury of Injury of Problem Active 2021-04-02 Memoria kidney kidney 09:12:48 l (disorder) (disorder) He rmann Active Problem 04/02/2021 [place] Lactic Lactic Problem Active 2021-04-02 Mack rafaela acidosis acidosis 09:12:48 l (disorder) (disorder) He rmann Active Problem 04/02/2021 [place] Leukocytos Leukocyto Problem Active 2021-04-02 Memoria is sis 09:12:48 l (disorder) (disorder) He rmann Active Problem 04/02/2021 [place] Malignant Malignant Problem Active 2021-04-02 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:12:48 l urinary urinary [place]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 bladder (disorder) (disorder) Active Problem 04/02/2021 [place] Tachycardi Tachycard Problem Active 2021-04-02 Memoria a ia 09:12:48 l (finding) (finding) Herm harlan Active Problem 04/02/2021 [place] ACUTE ACUTE Diagnosis Active 2021-04-11 Mem oria PULMONARY PULMONARY 21:46:00 l EDEMA EDEMA [place] Active [place] ACIDOSIS ACIDOSIS Diagnosis Active 2021-04-11 Memoria Active MH 21:46:00 l [place] Jean Claude n CKD CKD Problem Active UT (chronic (chronic [...] ans lymphoma lymphoma Allergies, Adverse Reactions, Alerts Allergy Allergy Status Severity Reaction(s) Onset Inactive Treating Comm ents Source Name Type Date Date Clinician No Known No Known Active Memori a Medicati Medicati l on on [place] Rothman Allergshad s s Social History Social Habit Start Date Stop Date Quantity Comments Source History [facility] Alcohol Frequency History [facility] Alcohol Std Drinks History [facility] Health Alcohol Binge Sexual [facility] of tobacco Current [facility] Exposure to 2022-08-10 2022-08-20 Not sure [facility] SARS-CoV-2 (event) 00:00:00 09:44:00 History of Social 2022-05-22 2022-05-[address] function 00:00:00 00:00:00 Hospital Alcohol Comment 2022-05-22 2022-05-22 1 drink per week [facility] 00:00:00 00:00:00 Hospital Alcohol intake 2022-05-22 2022-05-22 Current drinker Frantz levy 00:00:00 00:00:00 of alcohol Hospital (finding) Tobacco Comment 2020-12-12 2020-12-12 Quit 40 years [facility] 00[facility] 00:00:00 ago Tobacco use and 2020-12-12 2020-12-12 Smokeless [facility] exposure 00:00:00 00:00:00 tobacco non-user Social History 2015-07-14 2015-07-14 [facility] rei 19:46:37 19:46:37 Sex [birth year] [employer] 00:00:00 00:00:00 [facility] Smoking Status Start Date Stop Date Source Ex-smoker 2022-05-22 00:00:00 2022-05-22 00:00:00 [facility] Medications Ordered Filled Start Stop Current Ordering Indication Dosage Frequency Signature Comments Components Source Medication Medication Date Date Medication? Clinician (SIG) Name Name Multiple Yes UT Vitamins-Mi 9-20 Health nerals 10:14: (Multi For 37 Her 50+) tablet aspirin 81 2022-0 Yes 81mg QD Take 81 mg U T MG EC 9-20 by mouth 1 Health tablet 10:14: (one) time 37 each day. Multiple Yes UT Vitamins-Mi 9-20 Health nerals 10:14: (Multi For 37 Her 50+) tablet aspirin 81 2022-0 Yes 81mg QD Take 81 mg U T MG EC 9-20 by mouth 1 Health tablet 10:14: (one) time 37 each day. clopidogrel Yes UT (Plavix) 75 8-10 Health MG tablet 00:00: 00 clopidogrel 2022-0 Yes UT (Plavix) 75 8-10 Health MG tablet 00:00: 00 Multiple 2022-0 Yes UT Vitamins-Mi 5-02 Health nerals 10:36: (Multi For 18 Her 50+) tablet aspirin 81 2022-0 Yes 81mg QD Take 81 mg U T MG EC 5-02 by mouth 1 Health tablet 10:36: (one) time 18 each day. Insulin Pen 2022-0 Yes [id number] USE UT Needle (BD 4-24 DIRECTED Healt h Pen Needle 00:00: WITH Jane 2nd 00 INSULIN Gen) 32G X PENS 5 4 MM misc times DAILY. Insulin Pen 0 Yes [id number] USE UT Needle (BD 4-24 DIRECTED Healt h Pen Needle 00:00: WITH Jane 2nd 00 INSULIN Gen) 32G X PENS 5 4 MM misc times DAILY. Insulin Pen 2022-0 Yes [id number] USE UT Needle (BD 4-24 DIRECTED Healt h Pen Needle 00:00: WITH Jane 2nd 00 INSULIN Gen) 32G X PENS 5 4 MM misc times DAILY. Synthroid 2022-2023- No [id number] 100ug QD Take 1 UT 100 MCG 3-20 03-20 tablet Health tablet 00:00: 04:59 (100 mcg 00 :00 total) by mouth 1 (one) time each day. Synthroid 2022-2023- No [id number] 100ug QD Take 1 UT 100 MCG 3-20 03-20 tablet Health tablet 00:00: 04:59 (100 mcg 00 :00 total) by mouth 1 (one) time each day. Synthroid 2022-2023- No [id number] 100ug QD Take 1 UT 100 MCG 3-20 03-20 tablet Health tablet 00:00: 04:59 (100 mcg 00 :00 total) by mouth 1 (one) time each day. insulin 2023- No [id number] 60U Q.5D Inject 60 UT detemir 2-20 -21 Units Health (Levemir 00:00: 05:59 under the FlexPen) 00 :00 skin in 100 UNIT/ML the injection morning and 60 Units in the evening. insulin 2023- No [id number] 60U Q.5D Inject 60 UT detemir 2-20 02-21 Units Health (Levemir 00:00: 05:59 under the FlexPen) 00 :00 skin in 100 UNIT/ML the injection morning and 60 Units in the evening. insulin 2023- No [id number] 60U Q.5D Inject 60 UT detemir 2-20 -21 Units Health (Levemir 00:00: 05:59 under the FlexPen) 00 :00 skin in 100 UNIT/ML the injection morning and 60 Units in the evening. insulin Yes 20U Q.5D Inject Methodi detemir 2-04 0.2-0.25 st U-100 12:43: mL (20-25 Hospita (LEVEMIR) 02 Units l 100 unit/mL total) injection under the skin 2 (two) times a day. Sliding scale insulin Yes 10U Q.25D Inject 0.1 Met hodi ASPART 2-04 mL (10 st (NovoLOG) 12:43: Units Hospita 100 unit/mL 02 total) l injection under the skin 4 (four) times a day before meals and nightly. Per sliding scale aspirin Yes 81mg QD Take 1 Methodi (ECOTRIN) 2-04 tablet (81 st 81 MG 12:43: mg total) Hospita enteric 02 by mouth l coated daily. tablet atorvastati Yes 20mg QD Take 1 Meth maría n (LIPITOR) 2-04 tablet (20 st 20 mg 12:43: mg total) Hospita tablet 02 by mouth l daily. multivit Yes 1{tbl} QD Take 1 Metho di with 2-[address] calcium,iro 12:43: mouth Hospi ta n,min 02 daily. l (MULTIVITAM IN-CA-IRON- MINERALS ORAL) clopidogreL 2022- No 75mg QD Take 1 Met hodi (PLAVIX) 75 - 02-03 tablet (75 s t mg tablet 12:43: 00:00 mg total) Ho spita 02 :00 by mouth l daily. levothyroxi 2022- No 112ug QD Take 1 Me thodi ne 05-25 02-[address] (SYNTHROID) 12:43: 00:00 (112 mcg H ospita 112 mcg 02 :00 total) by l tablet mouth daily. levothyroxi 2022- No 125ug QD Take 1 Me thodi ne 05-25 02- tablet st (SYNTHROID) 12:43: 00:00 (125 mcg H ospita 125 mcg 02 :00 total) by l tablet mouth daily. levothyroxi 2022- No 112ug QD Take 1 Me thodi ne 2-04 03-[address] (SYNTHROID) 00:00: 05:59 (112 mcg H ospita 112 mcg 00 :00 total) by l tablet mouth daily for 30 days. clopidogrel 2022- No 75mg QD Take 75 mg UT (Plavix) 75 05-24 by mouth 1 H ealth MG tablet 00:00: 04:59 (one) time 00 :00 each day. clopidogreL 2022- No 75mg QD Take 1 Met hodi (PLAVIX) 75 05-24- tablet (75 s t mg tablet 00:00: 04:59 mg total) Ho spita 00 :00 by mouth l daily for 180 days. insulin Yes [id number] 22U Inject 22 UT aspart 1-24 Units Health (NovoLOG) 00:00: under the 100 UNIT/ML 00 skin in injection the morning and 22 Units at noon and 22 Units in the evening. Inject before meals. insulin Yes [id number] 22U Inject 22 UT aspart 1-24 Units Health (NovoLOG) 00:00: under the 100 UNIT/ML 00 skin in injection the morning and 22 Units at noon and 22 Units in the evening. Inject before meals. insulin Yes [id number] 22U Inject 22 UT aspart 1-24 Units Health (NovoLOG) 00:00: under the 100 UNIT/ML 00 skin in injection the morning and 22 Units at noon and 22 Units in the evening. Inject before meals. insulin 2023- No [id number] 60U Q.5D Inject 60 UT detemir 05-14 Units Health (Levemir 00:00: 05:59 under the FlexTouch) 00 :00 skin in 100 UNIT/ML the injection morning and 60 Units in the evening. insulin 2023- No [id number] 60U Q.5D Inject 60 UT detemir 05-14- Units Health (Levemir 00:00: 05:59 under the FlexTouch) 00 :00 skin in 100 UNIT/ML the injection morning and 60 Units in the evening. insulin 2023- No [id number] 60U Q.5D Inject 60 UT detemir 1-24 01-25 Units Health (Levemir 00:00: 05:59 under the FlexTouch) 00 :00 skin in 100 UNIT/ML the injection morning and 60 Units in the evening. insulin pen 2021-04 Yes [id number] USE TO UT needle (B-D 2-19 INJECT 1-4 He alth ULTRAFINE 00:00: TIMES III SHORT 00 DAILY PEN) 31G X DIRECTED 8 mm misc insulin pen 2021-04 Yes [id number] USE TO UT needle (B-D 2-19 INJECT 1-4 He alth ULTRAFINE 00:00: TIMES III SHORT 00 DAILY PEN) 31G X DIRECTED 8 mm misc insulin pen 2021-04 Yes [id number] USE TO UT needle (B-D 2-19 INJECT 1-4 He alth ULTRAFINE 00:00: TIMES III SHORT 00 DAILY PEN) 31G X DIRECTED 8 mm misc atorvastati 2021-04- No [id number] 20mg QD Take 1 UT n (Lipitor) 05-30-10 tablet (20 H ealth 20 MG 00:00: 05:59 mg total) tablet 00 :00 by mouth 1 (one) time each day. atorvastati 2021-04- No [id number] 20mg QD Take 1 UT n (Lipitor) 05-30-10 tablet (20 H ealth 20 MG 00:00: 05:59 mg total) tablet 00 :00 by mouth 1 (one) time each day. atorvastati 2021-04- No [id number] 20mg QD Take 1 UT n (Lipitor) 05-30-10 tablet (20 H ealth 20 MG 00:00: 05:59 mg total) tablet 00 :00 by mouth 1 (one) time each day. Multiple 2021- No UT Vitamins-Mi 10-30 Health nerals 10:24: 00:00 (Hair/Skin/ 44 :00 Nails/Bioti n) tablet SUPER B 2021- No UT COMPLEX & C 10-30 Health tablet 10:24: 00:00 41 :00 Multiple Yes UT Vitamins-Mi 10-30 Health nerals 10:00: (Multi For 57 Her 50+) tablet Insulin Pen Yes [id number] USE UT Needle (BD 10-30 DIRECTED Healt h Pen Needle 00:00: WITH Jane 2nd 00 INSULIN Gen) 32G X PENS TWICE 4 MM misc DAILY. insulin 2022- No [id number] 60U Q.5D Inject 60 UT detemir 10-30 Units Health (Levemir 00:00: 04:59 under the FlexTouch) 00 :00 skin in 100 UNIT/ML the injection morning and 60 Units in the evening. insulin 2022- No [id number] 22U Inject 22 UT aspart 10-30 Units Health (NovoLOG) 00:00: 04:59 under the 100 UNIT/ML 00 :00 skin in injection the morning and 22 Units at noon and 22 Units in the evening. Inject before meals. Synthroid 2022- No [id number] 125ug QD Take 1 UT 125 MCG 10-30 tablet Health tablet 00:00: 04:59 (125 mcg 00 :00 total) by mouth 1 (one) time each day. Synthroid 2021- No [id number] TAKE 1 U T 125 MCG 10-15 TABLET BY Health tablet 00:00: 00:00 MOUTH 00 :00 EVERY DAY DIRECTED Levemir 2021- No [id number] 60U Q.5D INJECT 60 UT FlexTouch 09-10 UNITS Health 100 UNIT/ML 00:00: 00:00 UNDER THE injection 00 :00 SKIN 2 (TWO) TIMES A DAY. BD Pen No [id number] USE UT Needle Jane 05-02 DIRECTED Hea lth 2nd Gen 32G 00:00: 00:00 WITH X 4 MM misc 00 :00 INSULIN PENS TWICE DAILY. Levofloxaci 2020-04 Yes 750 mg = 1 Memoria n 750 MG 2-10 tab, PO, l Oral Tablet 19:50: Daily, X 5 [place] [Levaquin] 00 day, # 5 tab, 0 Refill(s), Pharmacy: [id number], 165.1, cm, 03/29/21 1:38:00 [employer], Height, 63.722, kg, 03/29/21 1:38:00 [employer]IVE, Weight Famotidine 2020-04 No Notes: Memor ia 20 MG Oral 05-30 (Same as: l Tablet 15:00: Pepcid) [place] 00 Synthroid 2020-04 No Notes: Memori a - Take 1 l 15:00: hour [place] 00 before or 2 hours after meal; Enteral feeds may interefere with the absorption of this medication . (Same as:Synthro id) Ceftriaxone 2020-04 No Notes: Mack rafaela 05-30 (Same As: l 15:00: Rocephin). [place] 00 Use with 100 mL NS and infuse over 30 min MEDICATION WASTE Product Size: 1000 mg Product Wasted: ___ mg Insulin 2020-04 No Notes: Memoria Glargine 05-30 (Same as: l 100 UNT/ML 08:06: Lantus) Do H ermann Injectable 00 not hold Solution insulin [Lantus] without contacting prescriber WASTE: F/P - Black; E - Municipal Trash Bin "single patient use only" Stable for 28 days at room temperatur e Expires in days from ____Date Humalog 2020-04 No Notes: Memoria 05-30 (Same as: l 08:06: Humalog) [place] 00 Roll in palms of hands gently; [...] Rate: 150 l 500 mL 06:05: ml/hr, [place] 00 Infuse over: 3.3 hr, Route: IV, Dosing Weight 63.636 kg, Total Volume: 500, Priority: Routine, Start date: 03/29/21 0:05:00 [employer]EC[employer]IVE, Duration: 1 doses or times, Stop date: 03/29/21 3:22:00 [employer] EXEC[employer]IVE, BSA: 1.72 m2, 0 Calcium 2020-04 No 1,000 mL, Memor ia Chloride 2-09 1,000 l 0.0014 06:02: ml/hr, [place] MEQ/ML / 00 Infuse Potassium Over: 1 Chloride hr, Route: 0.004 IV, 1,000, MEQ/ML / Drug form: Sodium INJ, ONCE, Chloride Dosing 0.103 Weight MEQ/ML / 63.636 kg, Sodium Start Lactate date: 0.028 03/29/21 MEQ/ML 0:02:00 Injectable [employer]IVE, Stop Solution date: 03/29/21 0:02:00 [employer]ANCE SALES EXECUTIVE, 0 Saline 2020-04 No Notes: Memoria Flush 0.9% 2-09 (Same as: l 03:00: BD Posiflush) heparin 2020-04 No Notes: Memoria 2-09 porcine l 03:00: heparin Docusate 2020-04 No Notes: Memoria 2-08 (Same as: l 23:00: Colace) [place] 00 (Do Not Crush) Lasix 2020-04 No Notes: Memoria 2-08 (Same as: l 23:00: Lasix) MEDICATION WASTE Product Size: 40 mg Product Wasted: ___ mg Dextrose 2020-04 No 12.5 gm, Memor ia 50% Syringe 2-08 25 mL, l (D50W) 22:10: Route: IVP, Drug Form: INJ, Dosing Weight 63.636, kg, PRN, PRN Blood Glucose Results, Start date: 03/28/21 16:10:00 [employer]IVE, Duration: 30 day, Stop date: 04/27/21 16:09:00 [employer]ANCE SAL[employer] EXECUTIVE, 0 Glucagon 2020-04 No 1 mg, Memoria 2-08 Route: IM, l 22:10: Drug form: PDR/INJ, PRN, Dosing Weight 63.636, kg, PRN Blood Glucose Results, Start date: 03/28/21 16:10:00 INS[employer]ANCE SAL[employer] EXECUTIVE, Duration: 30 day, Stop date: 04/27/21 16:09:00 INS[employer]ANCE SALES EXECUTIVE, 0 Insulin 2020-04 No Notes: Memoria Lispro [...] Blood Glucose Results, Start date: 03/28/21 15:58:00 [employer]ANCE SALES EXECUTIVE, Duration: 30 day, Stop date: 04/27/21 15:57:00 [employer]ANCE SALES EXECUTIVE, 0 Glucagon 2020-04 No 1 mg, Memoria 2-08 Route: IM, l 21:58: Drug form: PDR/INJ, PRN, Dosing Weight 63.636, kg, PRN Blood Glucose Results, Start date: 03/28/21 15:58:00 INS[employer]ANCE SALES EXECUTIVE, Duration: 30 day, Stop date: 04/27/21 15:57:00 INSURANCE SALES EXECUTIVE, 0 Ondansetron 2020-04 No Notes: Mack rafaela 2-08 (Same as: l 21:58: Zofran) MEDICATION WASTE Product Size: 4 mg Product Wasted: ___ mg Acetaminoph 2020-04 No Notes: Do M emoria en 2-08 not exceed l 21:58: 4 gm/day. (Same as: Tylenol) Saline 2020-04 No Notes: Memoria Flush 0.9% 2-08 (Same as: l 19:41: BD Posiflush) Furosemide 2020-04 No Notes: Memor ia 2-08 (Same as: l 19:41: Lasix) insulin 2- No [id number] 20U Inject 20 UT aspart 8-24 07-12 Units Health (NovoLOG) 00:00: 00:00 under the 100 UNIT/ML 00 :00 skin 3 injection (three) times a day before meals. Continuous Yes [id number] Wear for UT Blood Gluc 5-26 14 days. Healt h Sensor 00:00: (FreeStyle 00 [place] 14 Day Sensor[place] [facility] [place] [id number] 1{each} 1 each 4 UT Blood Gluc 5-26 (four) Health Bariatric Surgeon 00:00: times a (FreeStyle 00 day Mariano 14 (before Day [place]) meals and device nightly). insulin pen Yes [id number] Use to UT needle (B-D 5-26 inject 1-4 He alth ULTRAFINE 00:00: times III SHORT 00 daily as PEN) 31G X directed 8 mm mis Continuous Yes [id number] Wear for UT Blood Gluc 5-26 14 days. Healt h Sensor 00:00: (FreeStyle 00 [place] 14 Day Sensor[place] [facility] [place] Yes [id number] 1{each} 1 each 4 UT Blood Gluc 5-26 (four) Health Bariatric Surgeon 00:00: times a (FreeStyle 00 day [place] 14 (before Day [place]) meals and device nightly). Continuous Yes [id number] 1{each} 1 each 4 UT Blood Gluc 5-26 (four) Health Bariatric Surgeon 00:00: times a (FreeStyle 00 day [place] 14 (before Day [place]) meals and device nightly). Continuous Yes [id number] 1{each} 1 each 4 UT Blood Gluc 5-26 (four) Health Bariatric Surgeon 00:00: times a (FreeStyle 00 day Mariano 14 (before Day [place]) meals and device nightly). Continuous 2022- No [id number] Wear for UT Blood Gluc 5-26 - 14 days. Heal th Sensor 00:00: 00:00 (FreeStyle 00 :00 [place] 14 Day Sensor) [facility] [place] 2022- No [id number] Wear for UT Blood Gluc 5-26 - 14 days. Heal th Sensor 00:00: 00:00 (FreeStyle 00 :00 [place] 14 Day Sensor) [facility] [place]vemir Levemir 2019-04 Yes JEREL 55 Q12H [...] P hysici TABS TABS ans Immunizations Ordered Filled Immunization Date Status Comments [facility] e Immunization Name Name COVID-19 Sisa 2022-01-28 Completed [facility] Bivalent 12+yr 00:00:00 ([place], blue cap) Influenza, 2022-01-28 Completed [facility] injectable, 00:00:00 quadrivalent Influenza, 2021-01-16 Completed [facility] injectable, 00:00:00 quadrivalent COVID-19 Moderna Unknown Completed [facility] Bivalent 12+yr ([place], blue cap) Influenza, Unknown Completed [facility] injectable, quadrivalent Influenza, Unknown Completed [facility] injectable, quadrivalent COVID-19 Moderna Unknown Completed [facility] Bivalent 12+yr ([place], blue cap) Influenza, Unknown Completed [facility] injectable, quadrivalent Influenza, Unknown Completed [facility] injectable, quadrivalent pneumococcal Unknown Completed [facility] 13-valent vaccine [place] Vital Signs Vital Name Observation Time Observation Value Comments Source Systolic blood 2023-01-08 156 mm[Hg] [facility] pressure 15:12:00 Diastolic blood 2023-01-08 75 mm[Hg] [facility] pressure 15:12:00 Heart rate 2023-01-08 87 /min [facility] 15:12:00 Body height 2023-01-08 165.1 cm [facility] 15:12:00 Body weight 2023-01-08 63.504 kg [facility] 15:12:00 BMI 2023-01-08 23.30 kg/m2 [facility] 15:12:00 Systolic blood 2022-08-20 135 mm[Hg] [facility] pressure 15:36:00 Diastolic blood 2022-08-20 78 mm[Hg] [facility] pressure 15:36:00 Heart rate 2022-08-20 91 /min [facility] 15:36:00 Body temperature 2022-08-20 36.67 Holly [facility] 15:36:00 Body weight 2022-08-20 62.596 kg [facility] 15:36:00 BMI 2022-08-20 22.96 kg/m2 [facility] 15:36:00 Systolic blood 2021-10-30 138 mm[Hg] [facility] pressure 15:01:00 Diastolic blood 2021-10-30 78 mm[Hg] [facility] pressure 15:01:00 Heart rate 2021-10-30 97 /min [facility] 15:01:00 Body temperature 2021-10-30 36.28 [facility] 15:01:00 Body weight 2021-10-30 63.776 kg [facility] 15:01:00 BMI 2021-10-30 23.40 kg/m2 [facility] 15:01:00 Systolic blood 2022-05-24 127 mm[Hg] [facility] pressure 17:02:07 Hospital Diastolic blood 2022-05-24 67 mm[Hg] [facility] pressure 17:02:07 Hospital Heart rate 2022-05-24 93 /min [facility] 17:02:07 Hospital Body temperature 2022-05-24 35.89 Holly [facility] 17:02:07 Hospital Oxygen saturation 2022-05-24 96 /min [facility] in Arterial blood 17:02:07 Hospital by Pulse oximetry Respiratory rate 2022-05-24 18 /min [facility] 13:14:58 Hospital Body height 2022-05-22 165.1 cm [facility] 15:17:00 Hospital Body weight 2022-05-22 66 kg [facility] 15:17:00 Hospital BMI 2022-05-22 24.21 kg/m2 [facility] 15:17:00 Hospital Temperature Oral 2021-03-30 98.6 F [facility] rmann (F) 18:00:00 Respitory Rate 2021-03-30 [facility] 18:00:00 Systolic (mm Hg) 2021-03-30 [facility] He rmann 18:00:00 Diastolic (mm Hg) 2021-03-30 [facility] H ermann 18:00:00 Heart Rate 2021-03-30 [facility] Claude n 18:00:00 Temperature Oral 2021-03-30 98.4 F [facility] rmann (F) 14:43:00 Heart Rate 2021-03-30 [facility] Claude n 14:43:00 Respitory Rate 2021-03-30 [facility] 14:43:00 Systolic (mm Hg) 2021-03-30 [facility] He rmann 14:43:00 Diastolic (mm Hg) 2021-03-30 [facility] H ermann 14:43:00 Temperature Oral 2021-03-30 98.2 F [facility] rmann (F) 09:56:00 Heart Rate 2021-03-30 [facility] n 09:56:00 Respitory Rate 2021-03-30 [facility] 09:56:00 Systolic (mm Hg) 2021-03-30 [facility] rmann 09:56:00 Diastolic (mm Hg) 2021-03-30 [facility] H ermann 09:56:00 Height 2021-03-29 165.1 cm [facility] Claude n 07:38:00 Weight 2021-03-29 [facility] n 07:38:00 BMI Calculated 2021-03-29 [facility] 07:38:00 Weight 2021-03-28 [facility] n 19:30:00 BP Systolic 2019-04-07 116 mm[Hg] Location: [facility] 14:16:00 Position: Sitting BP Diastolic 2019-04-07 73 mm[Hg] Location: [facility] 14:16:00 Position: Sitting Heart Rate 2019-04-07 85 /min Location: [facility] 14:16:00 Brachial Artery; BP Systolic 2019-04-07 148 mm[Hg] Location: [facility] 13:40:00 Position: Sitting BP Diastolic 2019-04-07 74 mm[Hg] Location: [place]; [facility] 13:40:00 Position: Sitting Heart Rate 2019-04-07 88 /min Location: [facility] 13:40:00 Brachial Artery; Height 2019-04-07 65 [in_us] [facility] 13:40:00 Weight 2019-04-07 129.375 [lb_av] [facility] 13:40:00 Body Mass Index 2019-04-07 21.53 kg/m2 [facility] Calculated 13:40:00 Temperature 2019-04-07 97.6 [degF] Method: Oral [facility] 13:40:00 Procedures Procedure Date / Time Performing Clinician Source Performed POCT GLYCOSYLATED 2023-01-08 15:51:24 [facility] HEMOGLOBIN (HGB A1C) POCT GLUCOSE 2023-01-08 15:50:52 [facility] POCT GLUCOSE 2022-08-20 16:09:48 [facility] POCT GLYCOSYLATED 2022-08-20 16:09:48 [facility] HEMOGLOBIN (HGB A1C) POC GLUCOSE 2022-05-24 14:49:00 [facility] POC GLUCOSE 2022-05-24 02:42:00 [facility] POC GLUCOSE 2022-05-23 23:03:00 [facility] Powers [facility] IR ANGIOGRAM CEREBRAL 2022-05-23 18:57:58 Shahbaz Powers [facility] BILATERAL US GUIDED VASCULAR ACCESS 2022-05-23 18:57:58 Teto Oconnell [facility] POC GLUCOSE 2022-05-23 18:57:00 [facility] POC GLUCOSE 2022-05-23 14:11:00 [facility] CBC WITH PLATELET AND 2022-05-23 10:19:00 Shahbaz oPwers [facility] DIFFERENTIAL COMPREHENSIVE METABOLIC 2022-05-23 10:19:00 Shahbaz Powers [facility] PANEL T4, FREE 2022-05-23 10:19:00 [facility] THYROID STIMULATING 2022-05-23 10:19:00 Shahbaz Powers [facility] HORMONE HEMOGLOBIN A1C 2022-05-23 10:19:00 [facility] FUNCTION P2Y12 2022-05-23 10:19:00 Shahbaz Powers [facility] T3, FREE 2022-05-23 10:19:00 [facility] ESTIMATED GFR 2022-05-23 10:19[facility]00 [facility] PEROXIDASE 2022-05-23 10:19:00 [facility] ANTIBODY THYROGLOBULIN ANTIBODY 2022-05-23 10:19:00 [facility] POC GLUCOSE 2022-05-23 02:41:00 [facility] 2022-05-22 23:11:00 [facility]OT[facility]OMBIN TIME WITH INR 2022-05-22 19:06:00 Shahbaz Powers [facility] COVID-19 QUALITATIVE 2022-05-22 16:29:00 Shahbaz Powers [facility] RT-PCR COMPREHENSIVE METABOLIC 2022-05-22 16:29:00 Shahbaz Powers [facility] PANEL PROTHROMBIN TIME WITH INR 2022-05-22 [facility]:29[facility] [place] [place] CBC WITH PLATELET AND 2022-05-22 16:29:00 Shahbaz Powers [facility] DIFFERENTIAL PLATELET FUNCTION P2Y12 2022-05-22 16:29:00 Shahbaz Powers [facility] ESTIMATED GFR 2022-05-22 16:29:00 [facility] 2022-05-22 15:37:00 [facility] HEAD EXTERNAL STUDY 2022-05-21 16:46:00 [facility] CT HEAD EXTERNAL STUDY 2022-05-21 01:21:00 [facility] CT HEAD EXTERNAL STUDY 2022-05-21 01:18:00 [facility] POCT GLYCOSYLATED 2021-10-30 15:53:00 [facility] HEMOGLOBIN (HGB A1C) POCT GLUCOSE 2021-10-30 15:52[facility]00 [facility] W/EGFR 2020-05-24 [facility] [[facility]] HEMOGLOBIN A1c 2020-05-24 00:00:00 [facility] [QL] LIPID PANEL 2020-05-24 00:00:00 [facility] [QL] MICROALBUMIN, RANDOM 2020-05-24 00:00:00 [facility] URINE (W/CREATININE) [QL] T4, FREE 2020-05-24 00:00:00 [facility] [QL] TSH, 3RD GENERATION 2020-05-24 00:00:00 [facility] [QL] VITAMIN D, 2020-05-24 00:00:00 [facility] 25-HYDROXY, LC/MS/MS [QL] CMP W/EGFR 2019-08-18 00:00:00 [facility] [QL] HEMOGLOBIN A1c 2019-08-18 00:00:00 [facility] [QL] LIPID PANEL 2019-08-18 00:00:00 [facility] [QL] MICROALBUMIN, RANDOM 2019-08-18 00:00:00 [facility] URINE (W/CREATININE) [QL] T4, FREE 2019-08-18 00:00:00 [facility] [QL] TSH, 3RD GENERATION 2019-08-18 00:00:00 [facility] [QL] VITAMIN D, 2019-08-18 00:00:00 [facility] 25-HYDROXY, LC/MS/MS [QLH] CMP W/EGFR 2019-04-07 00:00:00 [facility] [QLH] HEMOGLOBIN A1c 2019-04-07 00:00:00 [facility] [QLH] LIPID PANEL 2019-04-07 00:00:00 [facility] [QLH] MICROALBUMIN, 2019-04-07 00:00:00 [facility] RANDOM URINE (W/CREATININE) [QLH] T4, FREE 2019-04-07 00:00:00 [facility] [QLH] TSH, 3RD GENERATION 2019-04-07 00:00:00 [facility] [QLH] VITAMIN D, 2019-04-07 00:00:00 [facility] 25-HYDROXY, LC/MS/MS History of Tubal Ligation [facility] History of Breast [facility] augmentation History of Cornea Radial [facility] Keratotomy [facility] of [facility] Salpingo-oophorectomy bilateral History of Vaginal [facility] surgery History of Hysterectomy [facility] History of Uterine [facility] polypectomy History of Soft tissue [facility] tumor excision Plan of Care Planned Activity Planned Date Details Comments Source Future Scheduled 2023-01-09 Hepatitis C screening [facility] Test 23:30:46 (procedure) [code = 540762893] Future Scheduled 2023-01-09 SHINGLES VACCINES (1 [facility] Test 23:30:46 of 2) [code = SHINGLES VACCINES (1 of 2)] Future Scheduled 2023-01-09 65+ PNEUMOCOCCAL [facility] Test 23:30:46 VACCINE (2 - PPSV23 or PCV20) [code = 65+ PNEUMOCOCCAL VACCINE (2 - PPSV23 or PCV20)] Future Scheduled 2023-01-09 COVID-19 VACCINE (5 - [facility] Test 23:30:46 Moderna risk series) [code = COVID-19 VACCINE (5 - Moderna risk series)] Future Scheduled 2023-01-09 INFLUENZA VACCINE Method [facility] Test 23:30:46 (#1) [code = INFLUENZA VACCINE (#1)] Future Scheduled 2020-01-18 [QL] CMP W/EGFR [code [facility] Test 00:00:00 = [QL] CMP W/EGFR] Future Scheduled 2020-01-18 [QL] HEMOGLOBIN A1c [facility] Test 00:00:00 [code = [QL] HEMOGLOBIN A1c] Future Scheduled 2020-01-18 [QL] LIPID PANEL [facility] Test 00:00:00 [code = [QL] LIPID PANEL] Future Scheduled 2020-01-18 [QL] MICROALBUMIN, [facility] 00:00:00 RANDOM URINE (W/CREATININE) [code = 02652] Future Scheduled 2020-01-18 [QL] T4, FREE [code = [facility] Test 00:00:00 [QL] T4, FREE] Future Scheduled 2020-01-18 [QL] TSH, 3RD [facility] Test 00:00:00 GENERATION [code = [QL] TSH, 3RD GENERATION] Future Scheduled 2020-01-18 [QL] VITAMIN D, [facility] 00:00:00 25-HYDROXY, LC/MS/MS [code = [QL] VITAMIN D, 25-HYDROXY, LC/MS/MS] Future Scheduled 2020-01-18 [QL] CMP W/EGFR [code [facility] Test 00:00:00 = [QL] CMP W/EGFR] Future Scheduled 2020-01-18 [QL] HEMOGLOBIN A1c [facility] Test 00:00:00 [code = [QL] HEMOGLOBIN A1c] Future Scheduled 2020-01-18 [QL] LIPID PANEL [facility] Test 00:00:00 [code = [QL] LIPID PANEL] Future Scheduled 2020-01-18 [QL] MICROALBUMIN, [facility] Test 00:00:00 RANDOM URINE (W/CREATININE) [code = 52532] Future Scheduled 2020-01-18 [QL] T4, FREE [code = [facility] Test 00:00:00 [QL] T4, FREE] Future Scheduled 2020-01-18 [QL] TSH, 3RD [facility] Test 00:00:00 GENERATION [code = [QL] TSH, 3RD GENERATION] Future Scheduled 2020-01-18 [QL] VITAMIN D, [facility] Test 00:00:00 25-HYDROXY, LC/MS/MS [code = [QL] VITAMIN D, 25-HYDROXY, LC/MS/MS] Encounters Start End Encounter Admission Attending Care Care Encounter Source Date/Time Date/Time Type Type Clinicians Facility Department ID 2022-10-31 Outpatient [facility] [id number] [place] 17:09:24 [id number] [facility] 2022-08-20 Outpatient [facility] [id number] [place] 06:28:59 [id number] [facility] 2022-05-02 Outpatient [facility] [id number] [place] 15:47:04 [id number] [facility] 2020-12-12 Outpatient YULIANA, [facility] [id number] [place] [facility]:12[facility] DAPHNE, [facility] [id number] [place] 14:07:27 [facility] 2020-09-13 Outpatient DAPHNE, [facility] [id number] [place] 15:01:01 [facility] 2023-06-232023-06-23 Outpatient YULIANA, [facility] [id number] [place] 10:00:00 10:00:00 [facility] 2023-01-08 2023-01-08 Office Yuliana, [facility] [id number] [place] 10:00:00 10:58:13 Visit Jerel AGUIRRE [id number] [place] 9.2.7.2.686 MULTI [id number] SPECIALTY 2 2022-08-20 2022-08-20 Office Yuliana, [facility] 1.2.840.114 [id number] [place] 10:20:00 11:27:18 Visit Jerel AGUIRRE [id number] [place] 9.2.7.2.686 MULTI [id number] SPECIALTY 2 2022-05-22 2022-05-24 [facility], 1.2.840.1 [id number] Methodi 09:21:00 12:43:00 Encounter Shahbaz Verdugo [address]2388.1.[address] 3.430.2.7 Hospit a .3.692023 l .8 2022-05-24 2022-05-24 Orders Jeevan, 1.2.840.1 [id number] Methodi 00:00:00 00:00:00 Only Yenni Bullock 60917.1.[address] 3.430.2.7 Hospit a .3.605991 l .8 2022-05-22 2022-05-24 Inpatient [facility] [id number] [place] [address] 00:00:00 00:00:00 [address] 2022-05-23 2022-05-23 Anesthesia [place], 1.2.840.1 [id number] Methodi 11:37:00 12:52:00 Event George 25894.1.[address] [place] 3.430.2.7 Hospit a .3.334167 l .8 2022-03-13 2022-03-13 [facility] [id number] [place] 10:00:00 10:46:50 [facility] 2021-10-30 2021-10-30 Office ZAIRA Bridges 1.2.840.114 [id number] [place] 10:20:00 10:52:43 Visit Jerel WUA [id number] [place] 9.2.7.2.686 MULTI [id number] SPECIALTY 2 2021-10-08 2021-10-08 Telephone ZAIRA Bridges 1.2.840.114 [id number] [place] 00:00:00 00:00:00 Jerel WUA 350.1.13.58 [place] 9.2.7.2.686 MULTI [id number] SPECIALTY 2 2021-03-28 2021-03-30 Inpatient [facility] [id number] [facility] 19:14:16 21:37:00 r [place] 00 l [place] Leyla 2021-03-28 2021-03-30 Outpatient Rona, [facility] [id number] 13:14:16 15:37:00 Janelle 00 Edi 2021-03-28 2021-03-30 Outpatient Rona, [facility] [id number] 13:14:16 15:37:00 Janelle 00 Edi 2020-12-12 2020-12-12 Office ZAIRA Bridges 1.2.840.114 [id number] [place] 13:03:39 14:07:33 Visit Jerel WUA [id number] [place] 9.2.7.2.686 MULTI [id number] SPECIALTY 2 2020-12-12 2020-12-12 Nurse Only ZAIRA Sam 1.2.840.114 [id number] [place] 10:02:53 11:12:16 Michelle CARLA 350.1.13.58 [place] 9.2.7.2.686 MULTI [id number] SPECIALTY 2 2020-09-30 2020-09-30 Refill ZAIRA Bridges 1.2.840.114 [id number] [place] 00:00:00 00:00:00 Jerel YOUNNA 350.1.13.58 [place] 9.2.7.2.686 MULTI [id number] SPECIALTY 2 2020-09-13 2020-09-13 Office Jacobmanpreet ZAIRA 1.2.840.114 [id number] [place] 15:03:17 15:23:17 Visit Jerel AGUIRRE 350.1.13.58 [place] 9.2.7.2.686 MULTI [id number] SPECIALTY 2 2020-09-13 2020-09-13 Nurse Only ZAIRA Sam 1.2.840.114 [id number] [place] 14:00:53 15:02:07 Michelle YOUNNA 350.1.13.58 [place] 9.2.7.2.686 MULTI [id number] SPECIALTY 2 2020-09-07 2020-09-07 Abstract Yuliana ZAIRA 1.2.869.844 [id number] [place] 00:00:00 00:00:00 Jerel AGUIRRE 350.1.13.58 [place] 9.2.7.2.686 MULTI [id number] SPECIALTY 2 2019-08-18 2019-08-18 Appointmen ZAIRA BRIDGES [facility] [id number] [place] 14:00:00 14:00:00 t; ariel BELTRÁN i, M.D. Sienna ans AUBREY, M.D. 2019-08-18 2019-08-18 Appointmen ZAIRA SAM [facility] [id number] [place] 13:00:00 13:00:00 t; MICHELLE SAM lty - Physi ci MICHELLE RShantanuNShantanu rodrigues R.N. 2019-08-18 2019-08-18 Appointmen ZAIRA SAM [facility] [id number] [place] 13:00:00 13:00:00 t; MICHELLE SAM, Physi ci MICHELLE, R.N. ravi R.N. 2019-04-07 2019-04-07 Appointmen ZAIRA BRIDGES Multispecia [id number] [place] 13:00:00 13:00:00 t; ariel BELTRÁN - Physic Syed Wiley M.D. 2015-11-22 2015-11-22 Outpatient [facility] [id number] [address] [place] [address] 11:00:00 11:00:00 06 shana Childress 2015-11-08 2015-11-08 Outpatient [facility]AD [facility] [id number] Mem[facility] 14:50:00 14:50:00 05 shana Childress 2015-09-20 2015-09-20 Outpatient [facility] [id number] [facility] 15:30:00 15:30:00 04 shana Childress 2015-09-05 2015-09-06 Outpatient nullFlavo [facility] [id number] Memoria 15:29:00 04:59:00 r Outpatient 00 l Imaging [place] Childress 2015-09-05 2015-09-05 [facility] [address] [address] [id number] 10:29:00 23:59:00 Sylvia Lange 00 2014-11-07 2014-11-07 Outpatient [facility] [id number] [facility] 09:30:00 09:30:00 00 shana Childress Results Test Description Test Time Test Comments Results Result Comments Source POCT glycosylated hemoglobin (Hb A1C) 2023-01-08 15:51:24 Test Item Value Reference Range Interpretation Comme nts Hemoglobin A1C (test code = 4548-4) 6.7 % 4.0-6.0 A Lab Interpretation (test code = 79539-7) Abnormal [facility] glycosylated hemoglobin (Hb A1C)2023-01-08 15:51:24 Test Item Value Reference Range Interpretation Comments Hemoglobin A1C (test code = 4548-4) 6.7 % 4.0-6.0 A Lab Interpretation (test code = Abnormal 10362-0) [facility] [id number] 15:50:52 Test Item Value Reference Range Interpretation Comments Glucose Blood, POC (test code = 70 mg/dL 70-179 4286216) Lab Interpretation (test code = Normal 02532-1) [facility] [id number] 15:50:52 Test Item Value Reference Range Interpretation Comments Glucose Blood, POC (test code = 70 mg/dL 70-958 4613663) Lab Interpretation (test code = Normal 45284-1) [facility] glucose manually [id number] 16:09:48 Test Item Value Reference Range Interpretation Comments Glucose Blood, POC (test code = 142 mg/dL 70-564 4363028) Lab Interpretation (test code = Abnormal 74801-8) [facility] glycosylated hemoglobin (Hb A1C)2022-08-20 16:09:48 Test Item Value Reference Range Interpretation Comments Hemoglobin A1C (test code = 4548-4) 6.3 % 4.0-6.0 A Lab Interpretation (test code = Abnormal 09513-0) [facility] [id number] 14:55:00 Test Item Value Reference Range Interpretation Comments POC glucose (test code = 273 mg/dL 65-99 H Ope rator Name: [place] [id number]) AnivaDevice ID: [id number] able: [facility] 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 Interpretation (test Abnormal code = 96269-6) [employer] WzflvzgpJVGN-ZqP-3 (COVID-19) RNA [Presence] in Respiratory specimen by CATHY with probe [id number] 14:22:38 Test Item Value Reference Range Interpretation Comments SARS-CoV-2 (COVID-19) RNA Not detected [Presence] in Respiratory specimen by CATHY with probe detection (test code = 34671-7) Whether patient is employed in a Unknown healthcare setting (test code = 23039-4) Whether the patient has symptoms Unknown related to condition of interest (test code = 92865-1) Whether the patient was Unknown hospitalized for condition of interest (test code = 11048-2) Whether the patient was admitted Unknown to intensive care unit (ICU) for condition of interest (test code = 95342-1) Whether patient resides in a Unknown congregate care setting (test code = 23430-1) status (test code = Unknown 52126-5) Date and time of symptom onset Unknown (test code = 00565-3) [facility] glycosylated hemoglobin (Hb A1C)2021-10-30 15:53:00 Test Item Value Reference Range Interpretation Comments Hemoglobin A1C (test code = 4548-4) 7.3 % 4-6 A Lab Interpretation (test code = Abnormal 59814-2) [facility] glucose manually [id number] 15:52:00 Test Item Value Reference Range Interpretation Comments Glucose Blood, POC (test code = 202 mg/dL 70-180 A 6045034) Lab Interpretation (test code = Abnormal 28042-3) [facility] [id number] 17:04:00 Test Item Value Reference Range Interpretation Comments Glucose Lvl (test code = Glucose Lvl) 259 70-99 [facility]2021-12-10 17:04:00 Test Item Value Reference Range Interpretation Comments BUN (test code = BUN) 49 7-22 [place] 857301-12-10 17:04:00 Test Item Value Reference Range Interpretation Comments Creatinine Lvl (test code = Creatinine 1.70 0.50-1.40 Lvl) [place] 857301-12-10 17:04:00 Test Item Value Reference Range Interpretation Comments Sodium Lvl (test code = Sodium Lvl) 137 135-145 [place] 857301-12-10 17:04:00 Test Item Value Reference Range Interpretation Comments Potassium Lvl (test code = Potassium 4.9 3.5-5.1 Lvl) [place] 857301-12-10 17:04:00 Test Item Value Reference Range Interpretation Comments Chloride Lvl (test code = Chloride Lvl) 105 95-109 [place] 857301-12-10 17:04:00 Test Item Value Reference Range Interpretation Comments CO2 (test code = CO2) 25 24-32 [place] 857301-12-10 17:04:00 Test Item Value Reference Range Interpretation Comments AGAP (test code = AGAP) 11.9 10.0-20.0 [place] 857301-12-10 17:04:00 Test Item Value Reference Range Interpretation Comments Calcium Lvl (test code = Calcium Lvl) 9.3 8.5-10.5 [place] 857301-12-10 17:04:00 Test Item Value Reference Range Interpretation Comments eGFR (test code = eGFR) 29 [place] 857301-12-10 17:04:00 Test Item Value Reference Range Interpretation Comments Lactic Acid Lvl (test code = Lactic 1.7 0.5-2.2 Acid Lvl) [place] 460641-12-10 17:04:00 Test Item Value Reference Range Interpretation Comments WBC (test code = WBC) 9.1 3.7-10.4 [place] 460641-12-10 17:04:00 Test Item Value Reference Range Interpretation Comments RBC (test code = RBC) 4.05 4.20-5.40 [place] 460641-12-10 17:04:00 Test Item Value Reference Range Interpretation Comments Hgb (test code = Hgb) 12.5 12.0-16.0 [facility] AllianceUgplinxKUMXSQKGXR5646-64-46 17:04:00 Test Item Value Reference Range Interpretation Comments Hct (test code = Hct) 38.0 36.0-48.0 [facility] AllianceUfexuloAPFSWOOSPD2246-96-38 17:04:00 Test Item Value Reference Range Interpretation Comments MCV (test code = MCV) 93.8 80.0-98.0 [facility] AllianceNswpkdvDMVAJQKTEM2064-10-62 17:04:00 Test Item Value Reference Range Interpretation Comments MCH (test code = MCH) 30.8 pg 27.0-31.0 [facility] AllianceXfbdeslLJMCYUKUXS7893-01-69 17:04:00 Test Item Value Reference Range Interpretation Comments MCHC (test code = MCHC) 32.9 32.0-36.0 [facility] AllianceFwboogxUWKBTMKNBW5289-69-68 17:04:00 Test Item Value Reference Range Interpretation Comments RDW (test code = RDW) 15.6 11.5-14.5 [facility] AllianceCqiuprzCUAIAWLCQV0486-16-72 17:04:00 Test Item Value Reference Range Interpretation Comments Platelet (test code = Platelet) 249 133-450 [facility] AllianceEvobmrtJRRPWSUWCP3844-35-77 17:04:00 Test Item Value Reference Range Interpretation Comments MPV (test code = MPV) 10.7 7.4-10.4 [facility] AllianceQkifabfPIYSMVZGMO0236-12-43 17:04:00 Test Item Value Reference Range Interpretation Comments RBC Morph (test code = Normal (03/30/21 11:04 RBC Morph) AM) [facility] AllianceNwqxkotPGYSQYHTED9693-88-27 17:04:00 Test Item Value Reference Range Interpretation Comments Plt Morph (test code = Normal (03/30/21 11:04 Plt Morph) AM) [facility] AllianceXlpqyjwXCVOIDYMFS6568-22-95 17:04:00 Test Item Value Reference Range Interpretation Comments Segs (test code = Segs) 64.5 45.0-75.0 [facility] AlliancePknolbrZACNOBWXFK0980-50-71 17:04:00 Test Item Value Reference Range Interpretation Comments Lymphocytes (test code = Lymphocytes) 24.5 20.0-40.0 [facility] AllianceVvdcfriYEPELYGDBW9895-09-01 17:04:00 Test Item Value Reference Range Interpretation Comments Monocytes (test code = Monocytes) 9.0 2.0-12.0 [place] [address]-12-10 17:04:00 Test Item Value Reference Range Interpretation Comments Eosinophils (test code = Eosinophils) 1.4 <=4.0 [place] [address]-12-10 17:04:00 Test Item Value Reference Range Interpretation Comments Basophils (test code = Basophils) 0.6 <=1.0 [place] [address]-12-10 17:04:00 Test Item Value Reference Range Interpretation Comments Neutrophils # (test code = Neutrophils 5.9 1.5-8.1 #) [address]12-10 17:04:00 Test Item Value Reference Range Interpretation Comments Lymphocytes # (test code = Lymphocytes 2.2 1.0-5.5 #) [place] 460641-12-10 17:04:00 Test Item Value Reference Range Interpretation Comments Monocytes # (test code = Monocytes #) 0.8 <=0.8 [address]12-10 17:04:00 Test Item Value Reference Range Interpretation Comments Eosinophils # (test code = Eosinophils 0.1 <=0.5 #) [place] 460641-12-10 17:04:00 Test Item Value Reference Range Interpretation Comments Basophils # (test code = Basophils #) 0.1 <=0.2 [place] 857301-12-09 21:38:00 Test Item Value Reference Range Interpretation Comments Glucose Lvl (test code = Glucose Lvl) 247 70-99 [facility]2021-12-09 21:38:00 Test Item Value Reference Range Interpretation Comments BUN (test code = BUN) 50 7-22 [place] 857301-12-09 21:38:00 Test Item Value Reference Range Interpretation Comments Creatinine Lvl (test code = Creatinine 1.83 0.50-1.40 Lvl) [place] 857301-12-09 21:38:00 Test Item Value Reference Range Interpretation Comments Sodium Lvl (test code = Sodium Lvl) 135 135-145 [place] 857301-12-09 21:38:00 Test Item Value Reference Range Interpretation Comments Potassium Lvl (test code = Potassium 3.9 3.5-5.1 Lvl) [place] 857301-12-09 21:38:00 Test Item Value Reference Range Interpretation Comments Chloride Lvl (test code = Chloride Lvl) 104 95-109 [place] 857301-12-09 21:38:00 Test Item Value Reference Range Interpretation Comments CO2 (test code = CO2) 23 24-32 [place] 857301-12-09 21:38:00 Test Item Value Reference Range Interpretation Comments AGAP (test code = AGAP) 11.9 10.0-20.0 [place] 857301-12-09 21:38:00 Test Item Value Reference Range Interpretation Comments Calcium Lvl (test code = Calcium Lvl) 8.8 8.5-10.5 [place] 857301-12-09 21:38:00 Test Item Value Reference Range Interpretation Comments B/C Ratio (test code = B/C Ratio) 27 1 6-25 [place] 857301-12-09 21:38:00 Test Item Value Reference Range Interpretation Comments Total Protein (test code = Total 7.4 6.4-8.4 Protein) [place] 857301-12-09 21:38:00 Test Item Value Reference Range Interpretation Comments Albumin Lvl (test code = Albumin Lvl) 3.2 3.5-5.0 [place] 857301-12-09 21:38:00 Test Item Value Reference Range Interpretation Comments Globulin (test code = Globulin) 4.2 2.7-4.2 [place] 857301-12-09 21:38:00 Test Item Value Reference Range Interpretation Comments A/G Ratio (test code = A/G Ratio) 0.8 1 0.7-1.6 [place] 857301-12-09 21:38:00 Test Item Value Reference Range Interpretation Comments ALT (test code = ALT) 34 <=65 [place] 857301-12-09 21:38:00 Test Item Value Reference Range Interpretation Comments AST (test code = AST) 21 <=37 [place] 857301-12-09 21:38:00 Test Item Value Reference Range Interpretation Comments Alk Phos (test code = Alk Phos) 118 39-136 [place] 857301-12-09 21:38:00 Test Item Value Reference Range Interpretation Comments Bili Total (test code = Bili Total) 0.3 0.2-1.3 [facility]2021-12-09 21:38:00 Test Item Value Reference Range Interpretation Comments eGFR (test code = eGFR) 27 [place] 857301-12-09 10:14:00 Test Item Value Reference Range Interpretation Comments Lactic Acid Lvl (test code = Lactic 2.3 0.5-2.2 Acid Lvl) [place] 857301-12-09 10:14:00 Test Item Value Reference Range Interpretation Comments Magnesium Lvl (test code = Magnesium 2.0 1.8-2.4 Lvl) [place] 857301-12-09 10:14:00 Test Item Value Reference Range Interpretation Comments Ketone Quantitative (test code = Ketone 0.14 Quantitative) [place] 460641-12-09 10:14:00 Test Item Value Reference Range Interpretation Comments WBC (test code = WBC) 16.0 3.7-10.4 [place] 460641-12-09 10:14:00 Test Item Value Reference Range Interpretation Comments RBC (test code = RBC) 4.05 4.20-5.40 [place] 460641-12-09 10:14:00 Test Item Value Reference Range Interpretation Comments Hgb (test code = Hgb) 12.4 12.0-16.0 [place] 460641-12-09 10:14:00 Test Item Value Reference Range Interpretation Comments Hct (test code = Hct) 37.3 36.0-48.0 [place] 460641-12-09 10:14:00 Test Item Value Reference Range Interpretation Comments MCV (test code = MCV) 92.2 80.0-98.0 [place] 460641-12-09 10:14:00 Test Item Value Reference Range Interpretation Comments MCH (test code = MCH) 30.7 pg 27.0-31.0 [place] 460641-12-09 10:14:00 Test Item Value Reference Range Interpretation Comments MCHC (test code = MCHC) 33.2 32.0-36.0 [place] 460641-12-09 10:14:00 Test Item Value Reference Range Interpretation Comments RDW (test code = RDW) 15.7 11.5-14.5 [place] 460641-12-09 10:14:00 Test Item Value Reference Range Interpretation Comments Platelet (test code = Platelet) 240 133-450 [place] 460641-12-09 10:14:00 Test Item Value Reference Range Interpretation Comments MPV (test code = MPV) 9.9 7.4-10.4 [place] 460641-12-09 10:14:00 Test Item Value Reference Range Interpretation Comments Segs (test code = Segs) 86.4 45.0-75.0 [place] 460641-12-09 10:14:00 Test Item Value Reference Range Interpretation Comments Lymphocytes (test code = Lymphocytes) 8.2 20.0-40.0 [place] 460641-12-09 10:14:00 Test Item Value Reference Range Interpretation Comments Monocytes (test code = Monocytes) 5.1 2.0-12.0 [place] 460641-12-09 10:14:00 Test Item Value Reference Range Interpretation Comments Basophils (test code = Basophils) 0.3 <=1.0 [place] 460641-12-09 10:14:00 Test Item Value Reference Range Interpretation Comments Neutrophils # (test code = Neutrophils 13.8 1.5-8.1 #) [facility] AllianceDiqouqfODYOXAIYHW6827-55-06 10:14:00 Test Item Value Reference Range Interpretation Comments Lymphocytes # (test code = Lymphocytes 1.3 1.0-5.5 #) [facility] AllianceLlxqfkeGJSXGIRGSV6813-41-54 10:14:00 Test Item Value Reference Range Interpretation Comments Monocytes # (test code = Monocytes #) 0.8 <=0.8 [place] 460641-12-09 10:14:00 Test Item Value Reference Range Interpretation Comments Basophils # (test code = Basophils #) 0.1 <=0.2 [place] 857301-12-09 06:54:00 Test Item Value Reference Range Interpretation Comments Lactic Acid Lvl (test code = Lactic 6.2 0.5-2.2 Acid Lvl) [place] 857301-12-09 06:54:00 Test Item Value Reference Range Interpretation Comments Procalcitonin Lvl (test code = 0.08 <=0.10 Procalcitonin Lvl) [place] 857301-12-09 04:05:54 Test Item Value Reference Range Interpretation Comments Glucose Lvl (test code = Glucose Lvl) 371 70-99 [place] 857301-12-09 04:05:54 Test Item Value Reference Range Interpretation Comments BUN (test code = BUN) 40 7-22 [place] 857301-12-09 04:05:54 Test Item Value Reference Range Interpretation Comments Creatinine Lvl (test code = Creatinine 2.13 0.50-1.40 Lvl) [facility]2021-12-09 04:05:54 Test Item Value Reference Range Interpretation Comments Sodium Lvl (test code = Sodium Lvl) 134 135-145 [place] 857301-12-09 04:05:54 Test Item Value Reference Range Interpretation Comments Potassium Lvl (test code = Potassium 4.5 3.5-5.1 Lvl) [place] 857301-12-09 04:05:54 Test Item Value Reference Range Interpretation Comments Chloride Lvl (test code = Chloride Lvl) 100 95-109 [place] 857301-12-09 04:05:54 Test Item Value Reference Range Interpretation Comments CO2 (test code = CO2) 20 24-32 [place] 857301-12-09 04:05:54 Test Item Value Reference Range Interpretation Comments AGAP (test code = AGAP) 18.5 10.0-20.0 [place] 857301-12-09 04:05:54 Test Item Value Reference Range Interpretation Comments Calcium Lvl (test code = Calcium Lvl) 9.0 8.5-10.5 [place] 857301-12-09 04:05:54 Test Item Value Reference Range Interpretation Comments B/C Ratio (test code = B/C Ratio) 19 1 6-25 [place] 857301-12-09 04:05:54 Test Item Value Reference Range Interpretation Comments Total Protein (test code = Total 7.8 6.4-8.4 Protein) [facility]2021-12-09 04:05:54 Test Item Value Reference Range Interpretation Comments Albumin Lvl (test code = Albumin Lvl) 3.4 3.5-5.0 [place] 857301-12-09 04:05:54 Test Item Value Reference Range Interpretation Comments Globulin (test code = Globulin) 4.4 2.7-4.2 [facility] [id number] 04:05:54 Test Item Value Reference Range Interpretation Comments A/G Ratio (test code = A/G Ratio) 0.8 1 0.7-1.6 [facility] [id number] 04:05:54 Test Item Value Reference Range Interpretation Comments ALT (test code = ALT) 42 <=65 [facility] [id number] 04:05:54 Test Item Value Reference Range Interpretation Comments AST (test code = AST) 26 <=37 [facility] [id number] 04:05:54 Test Item Value Reference Range Interpretation Comments Alk Phos (test code = Alk Phos) 126 39-136 [facility] [id number] 04:05:54 Test Item Value Reference Range Interpretation Comments Bili Total (test code = Bili Total) 0.3 0.2-1.3 [facility] [id number] 04:05:54 Test Item Value Reference Range Interpretation Comments eGFR (test code = eGFR) 22 [facility] [employer] [id number] 04:05:00 Test Item Value Reference Range Interpretation Comments Troponin-I (test code = Troponin-I) no gt <=0.40 [facility] [employer] [id number] 23:36:00 Test Item Value Reference Range Interpretation Comments Troponin-I (test code = Troponin-I) no gt <=0.40 [facility] OlggcbbDMSEHFPZYX2243-52-39 21:24:00 Test Item Value Reference Range Interpretation Comments Coronavirus (COVID-19) Not Detected (03/28/21 CATHY (test code = 3:24 PM) Coronavirus (COVID-19) CATHY) [facility] [employer] [id number] 19:57:00 Test Item Value Reference Range Interpretation Comments Total CK (test code = Total CK) 150 12-191 [facility] [id number] 19:57:00 Test Item Value Reference Range Interpretation Comments UA Color (test code = Light Yellow UA Color) *NA*(03/28/21 1:57 PM) [facility] [id number] 19:57:00 Test Item Value Reference Range Interpretation Comments UA Turbidity (test code = Clear (03/28/21 1:57 UA Turbidity) PM) [facility] AND [id number] 19:57:00 Test Item Value Reference Range Interpretation Comments UA Spec Grav (test code = UA Spec 1.008 1 Grav) [facility] AND [id number] 19:57:00 Test Item Value Reference Range Interpretation Comments UA pH (test code = UA pH) 5.0 1 5.0-8.0 [facility] AND [id number] 19:57:00 Test Item Value Reference Range Interpretation Comments UA Protein (test code Negative (03/28/21 1:57 = UA Protein) PM) [facility] AND [id number] 19:57:00 Test Item Value Reference Range Interpretation Comments UA Glucose (test code = UA Glucose) 150 mg/dL [facility] AND [id number] 19:57:00 Test Item Value Reference Range Interpretation Comments UA Ketones (test code Negative *NA*(03/28/21 = UA Ketones) 1:57 PM) [facility] AND [id number] 19:57:00 Test Item Value Reference Range Interpretation Comments UA Bili (test code = Negative *NA*(03/28/21 UA Bili) 1:57 PM) [facility] AND [id number] 19:57:00 Test Item Value Reference Range Interpretation Comments UA Blood (test code = Moderate *ABN*(03/28/21 UA Blood) 1:57 PM) [facility] AND [id number] 19:57:00 Test Item Value Reference Range Interpretation Comments UA Urobilinogen (test code = UA <=1.0 mg/dL 0.1-1.0 Urobilinogen) [facility] AND [id number] 19:57:00 Test Item Value Reference Range Interpretation Comments UA Nitrite (test code Negative (03/28/21 1:57 = UA Nitrite) PM) [facility] AND [id number] 19:57:00 Test Item Value Reference Range Interpretation Comments UA Leuk Est (test code Trace *ABN*(03/28/21 = UA Leuk Est) 1:57 PM) [facility] AND [id number] 19:57:00 Test Item Value Reference Range Interpretation Comments UA Sq Epi (test code = None Seen (03/28/21 1:57 UA Sq Epi) PM) [facility] [id number] 19:57:00 Test Item Value Reference Range Interpretation Comments UA WBC (test code = UA WBC) 5 <=5 [facility] [id number] 19:57:00 Test Item Value Reference Range Interpretation Comments UA RBC (test code = UA RBC) 3 <=2 [facility] [id number] 19:57:00 Test Item Value Reference Range Interpretation Comments UA Mucus (test code = UA Mucus) Few /LPF [facility] [id number] 19:53:00 Test Item Value Reference Range Interpretation Comments Troponin-I (test code = Troponin-I) no gt <=0.40 [facility] [id number] 19:53:00 Test Item Value Reference Range Interpretation Comments BNP (test code = BNP) 15 [facility] [id number] 19:53:00 Test Item Value Reference Range Interpretation Comments Total Protein (test code = Total 7.8 6.4-8.4 Protein) [facility] [id number] 19:53:00 Test Item Value Reference Range Interpretation Comments Albumin Lvl (test code = Albumin Lvl) 3.2 3.5-5.0 [facility] [id number] 19:53:00 Test Item Value Reference Range Interpretation Comments ALT (test code = ALT) 40 <=65 [facility] [id number] 19:53:00 Test Item Value Reference Range Interpretation Comments AST (test code = AST) 32 <=37 [facility] [id number] 19:53:00 Test Item Value Reference Range Interpretation Comments Alk Phos (test code = Alk Phos) 136 39-136 [facility] [id number] 19:53:00 Test Item Value Reference Range Interpretation Comments Bili Total (test code = Bili Total) 0.2 0.2-1.3 [facility] [id number] 19:53:00 Test Item Value Reference Range Interpretation Comments B/C Ratio (test code = B/C Ratio) 21 1 6-25 [facility] [id number] 19:53:00 Test Item Value Reference Range Interpretation Comments Globulin (test code = Globulin) 4.6 2.7-4.2 [place] 857301-12-08 19:53:00 Test Item Value Reference Range Interpretation Comments A/G Ratio (test code = A/G Ratio) 0.7 1 0.7-1.6 [place] 857301-12-08 19:53:00 Test Item Value Reference Range Interpretation Comments Magnesium Lvl (test code = Magnesium 2.0 1.8-2.4 Lvl) [place] 857301-12-08 19:53:00 Test Item Value Reference Range Interpretation Comments Phosphorus (test code = Phosphorus) 3.3 2.5-4.5 [facility] All[id number] 19:53:00 Test Item Value Reference Range Interpretation Comments WBC (test code = WBC) 14.5 3.7-10.4 [place] 460641-12-08 19:53:00 Test Item Value Reference Range Interpretation Comments RBC (test code = RBC) 4.30 4.20-5.40 [place] 460641-12-08 19:53:00 Test Item Value Reference Range Interpretation Comments Hgb (test code = Hgb) 13.2 12.0-16.0 [facility] AllianceOutdaygYDXHPZFSJV8811-89-85 19:53:00 Test Item Value Reference Range Interpretation Comments Hct (test code = Hct) 40.3 36.0-48.0 [facility] AllianceSatuomcINFUWMGGRO7337-19-83 19:53:00 Test Item Value Reference Range Interpretation Comments MCV (test code = MCV) 93.7 80.0-98.0 [place] 460641-12-08 19:53:00 Test Item Value Reference Range Interpretation Comments MCH (test code = MCH) 30.6 pg 27.0-31.0 [place] 460641-12-08 19:53:00 Test Item Value Reference Range Interpretation Comments MCHC (test code = MCHC) 32.7 32.0-36.0 [place] 460641-12-08 19:53:00 Test Item Value Reference Range Interpretation Comments RDW (test code = RDW) 15.6 11.5-14.5 [address]12-08 19:53:00 Test Item Value Reference Range Interpretation Comments Platelet (test code = Platelet) 253 133-450 [facility]ub[facility]uctSTOGDCYHSL0235-43-64 19:53:00 Test Item Value Reference Range Interpretation Comments MPV (test code = MPV) 9.5 7.4-10.4 [id number] 19:53:00 Test Item Value Reference Range Interpretation Comments Segs (test code = Segs) 88.0 45.0-75.0 [facility] HospitalYfplhakOPDVIBYUXB9270-64-83 19:53:00 Test Item Value Reference Range Interpretation Comments Lymphocytes (test code = Lymphocytes) 10.3 20.0-40.0 [facility] H[id number] 19:53:00 Test Item Value Reference Range Interpretation Comments Monocytes (test code = Monocytes) 1.3 2.0-12.0 [facility] Hos[id number] 19:53:00 Test Item Value Reference Range Interpretation Comments Eosinophils (test code = Eosinophils) 0.1 <=4.0 [facility] HospitalMbthmkeQCBZKDEZTK0362-51-61 19:53:00 Test Item Value Reference Range Interpretation Comments Basophils (test code = Basophils) 0.3 <=1.0 [facility] HealthMcmubwzRVOLUYVNKQ4704-11-46 19:53:00 Test Item Value Reference Range Interpretation Comments Neutrophils # (test code = Neutrophils 12.8 1.5-8.1 #) [facility] HealthXlmaznaEUQMPZJVDM2694-21-27 19:53:00 Test Item Value Reference Range Interpretation Comments Lymphocytes # (test code = Lymphocytes 1.5 1.0-5.5 #) [facility]iyMCOMUMJRIE9107-57-37 19:53:00 Test Item Value Reference Range Interpretation Comments Monocytes # (test code = Monocytes #) 0.2 <=0.8 [facility] [id number] 19:53:00 Test Item Value Reference Range Interpretation Comments Hgb A1C (test code = Hgb A1C) 7.8 [facility]] MICROALBUMIN, RANDOM URINE (W/CREATININE)2019-04-07 15:00:01 Test Item Value Reference Range Interpretation Comments Urine Microalbumin 45.9 mg/L No establ ished (test code = Urine reference range. Microalbumin) U Creatinine (test 81.60 mg/dl No establ ished code = 2161-8) reference ran ge. Urine Microalbuming 56.2 mg/g <=30.0 Creatinine Ratio; Above High Threshold (test code = 08758-8) [facility]] CMP [id number] 14:50:01 Test Item Value Reference Range Interpretation Comments Sodium Level 143 {mEq/l} 135-145 (test code = 2951-2) Potassium Level 4.4 {mEq/l} 3.5-5.1 (test code = 2823-3) Chloride Level; 110 {mEq/l} 95-109 Above High Threshold (test code = 2075-0) Carbon Dioxide 25 {mEq/l} 24-32 (test code = 8-9) AGAP (test code = 12.4 {mEq/l} 10.0-20.0 72750-5) Glucose Lvl; 110 mg/dl 70-99 Adult reference range Above High values reflect the Threshold (test clinical roshan delinesof the code = 2345-7) [place] [employer]. Creatinine Lvl; 1.60 mg/dl [...] g/dl 2.7-4.2 High Threshold (test code = 30690-9) A/G Ratio (test 1.0 0.7-1.6 code = 1759-0) Calcium Level 10.3 mg/dl 8.5-10.5 Total (test code = 93735-1) ALT (test code = 32 u/l 0-65 3-4) AST (test code = 21 u/l 0-37 29255-0) Bili Total (test 0.4 mg/dl 0.2-1.3 code = 1974-2) Alk Phos (test 99 u/l 39-136 The pediatric reference code = 1783-0) ranges for th is test represent a CLSI-basedtrans ference of the CALIPER prosper abase of pediatric refer ence intervals to E[employer] Dyess analyzer (Clinical Biochemistry 46 (2013): 9420-8528). [facility] cWyze [facility] has not internally validated these reference ranges and therefore they should be used only in th e context of a thoroughcl inical assessment. eGFR (test code = 32 The eGFR i s calculated 07789-2) {ML/MIN/1.7} using the CKD-E PI formula. In [...] be multiplied by t he estimated BMI. [facility]] LIPID [id number] 14:50:01 Test Item Value Reference Range Interpretation Comments Chol; Above High Threshold (test 331 mg/dl <=199 code = 2093-3) Trig; Above High Threshold (test 238 mg/dl <=149 code = 2571-8) HDL Cholesterol (test code = 62 mg/dl >=61 2085-9) CHD Risk (test code = 15519-4) 5.34 3.90-5.80 LDL; Above High Threshold (test 221 mg/dl <=99 code = 58558-4) VLDL (test code = VLDL) 48 [facility]] T4, [id number] 14:50:01 Test Item Value Reference Range Interpretation Comments T4 Free (test code = 3024-7) 1.16 ng/dl 0.76-1.46 [facility]] TSH, 3RD [id number] 14:50:01 Test Item Value Reference Range Interpretation Comments TSH (test code = 59238-2) 2.130 {uIU/ml} 0.360-3.740 [facility]] VITAMIN D, 25-HYDROXY, [id number] 14:50:01 Test Item Value Reference Range Interpretation Comments Vitamin D, 25-OH, 81.2 ng/ml 30.0-100.0 Reference range is based Total (test code on recommen dations in the = Vitamin D, EndocrineSociet y Clinical 25-OH, Total) Practice Guide line (J Clin Endocrinol Ssqqt8545;96:19 11-1930) [facility]] HEMOGLOBIN [id number] 14:50:01 Test Item Value Reference Range Interpretation Comments Hemoglobin A1c; Above High Threshold 6.7 % <=5.6 (test code = 4548-4) [facility]icians[facility] ([facility] of Care In Office)2019-04-07 13:54:00 Test Item Value Reference Range Interpretation Comments Glucose POC Lifescan (test code = 115 A Glucose POC Lifescan) [facility][O] Hemoglobin A1c (in office)2019-04-07 13:53:00 Test Item Value Reference Range Interpretation Comments HEMOGLOBIN A1c; Abnormal (test code = 6.4 A 4548-4) [facility]
[2023-01-29 12:58] LABS: SARS-CoV-2 Antigen Rapid Res Negative (Negative)
--- NOTE | 2023-01-29 13:08 | EDPHYS ---
Physician Documentation [facility] Name: Keren Hinton Age: 77 yrs Sex: Female : 1945 Arrival Date: 01/29/2023 Time: 12:15 Bed 17 Private MD: Steve Salazar ED Physician Jude Sheppard HPI: 01/29 13:11 This 77 yrs old Female presents to ER via Ambulatory with complaints of Covid Test, sb4 Cough. 13:20 Patient states that she has had a cough and congestion since yesterday. She states that sb4 also she felt like she could not taste her soup as well as she normally can. Her symptoms are very mild in nature. She denies any shortness of breath, chest pain, nausea, vomiting, fever, chills. She is going on a trip this weekend and wanted to make sure she does not have COVID so she does not spread it to others. She has had her COVID-vaccine but not her booster. 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 - Social history:: Smoking status: Patient denies any tobacco usage or history of. ROS: 13:20 Constitutional: Negative for fever, chills, and weight loss, sb4 13:20 Cardiovascular: 13:20 Respiratory: Positive for cough, 13:20 All other systems are negative, Exam: 13:20 Constitutional: This is a well developed, well nourished patient who is awake, alert, sb4 and in no acute distress. Head/Face: Normocephalic, atraumatic. Eyes: Extra-ocular motions intact. Periorbital areas with no swelling, redness, or edema. ENT: Mucous membranes moist. Skin: Warm, dry with normal turgor. Normal color with no rashes, no lesions, and no evidence of cellulitis. MS/ Extremity: Pulses equal, no cyanosis. Neurovascular intact. Full, normal range of motion. Neuro: Awake and alert, GCS 15, oriented to person, place, time, and situation. Motor strength 5/5 in all extremities. Sensory grossly intact. Vital Signs: 12:29 BP 149 / 64; Pulse 100; Resp 17; Temp 98.2; Pulse Ox 97% ; Weight 63.5 kg; Height 5 ft. ll1 5 in. ; Pain 0/10; 13:15 BP 124 / 54; Pulse 93; Resp 17; Pulse Ox 96% on R/A; nj1 12:29 Body Mass Index 23.30 (63.50 kg, 165.1 cm) ll1 12:29 Pain Scale: Adult ll1 MDM: 12:24 Patient medically screened. sb4 13:20 Differential diagnosis: viral Infection, bacterial infection, URI, bronchitis. Data sb4 reviewed: vital signs, nurses notes, lab test result(s), and as a result, I will discharge patient. Counseling: I had a detailed discussion with the patient and/or guardian regarding the historical points, exam findings, and any diagnostic results supporting the discharge/admit diagnosis, lab results, to return to the emergency department if symptoms worsen or persist or if there are any questions or concerns that arise at home. 01/29 12:27 Order name: SARS RAPID; Complete Time: 13:00 sb4 01/29 12:27 Order name: Flu; Complete Time: 13:06 sb4 Administered Medications: No medications were administered Disposition: 16:31 Co-signature as Attending Physician, Jude Sheppard MD I agree with the assessment and kdr plan of care. Disposition Summary: 01/29/23 13:07 Discharge Ordered Notes: Location: Home sb4 Problem: new sb4 Symptoms: are unchanged sb4 Condition: Stable sb4 Diagnosis - Acute upper respiratory infection, unspecified sb4 Followup: sb4 - With: Steve Salazar MD - When: As needed - Reason: Continuance of care, Re-evaluation by your physician Discharge Instructions: - Discharge Summary Sheet sb4 - Viral Respiratory Infection sb4 - Upper Respiratory Infection, Adult, Wukg-xq-Lchl sb4 Forms: - Medication Reconciliation Form sb4 - Thank You Letter sb4 - Antibiotic Education sb4 - Prescription Opioid Use sb4 - Patient Portal Instructions sb4 - Leadership Thank You Letter sb4 Signatures: Dispatcher [employer] Jude Key MD MD kdr Lewis, Lynsay, RN RN ll1 Lindsey Mckeon PA-C PA-C sb4 Corrections: (The following items were deleted from the chart) 12:25 12:25 PSHx: section; ll1 ll1
--- NOTE | 2023-01-29 13:08 | ER ---
[facility]urse's Notes [facility] Name: Keren Hinton Age: 77 yrs Sex: Female : 1945 Arrival Date: 01/29/2023 Time: 12:15 Bed 17 Private MD: Steve Salazar Diagnosis: Acute upper respiratory infection, unspecified Presentation: 01/29 12:29 Chief complaint: Patient states: Cough since yesterday. Wants covid test. Coronavirus ll1 screen: Vaccine status: Patient reports receiving the 2nd dose of the covid vaccine. Client denies travel out of the [place] in the last 14 days. cough unrelated to allergies, fatigue, Client presents with at least one sign or symptom that may indicate coronavirus-19. Standard/surgical mask placed on the client. Ebola Screen: Patient denies travel to an Ebola-affected area in the 21 days before illness onset. Initial Sepsis Screen: Does the patient meet any 2 criteria? No. Patient's initial sepsis screen is negative. Does the patient have a suspected source of infection? Yes: Productive cough/pneumonia. Risk Assessment: Do you want to hurt yourself or someone else? Patient reports no desire to harm self or others. Onset of symptoms was January 28, 2023. 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 - Social history:: Smoking status: Patient denies any tobacco usage or history of. Screenin:40 [facility] ED Fall Risk Assessment (Adult) Score/Fall Risk Level 0 - 2 = Low Risk nj1 Oriented to surroundings, Maintained a safe environment, Hourly rounding (assess needs \T\ fall precautionary measures) done. Abuse screen: Denies threats or abuse. Denies injuries from another. Nutritional screening: No deficits noted. Tuberculosis screening: No symptoms or risk factors identified. Assessment: 12:40 General: Appears in no apparent distress. comfortable, Behavior is calm, cooperative, nj1 appropriate for age. Pain: Denies pain. Neuro: No deficits noted. Cardiovascular: No deficits noted. Respiratory: Airway is patent Respiratory effort is even, unlabored. 13:15 Reassessment: Patient appears in no apparent distress at this time. Patient and/or nj1 family updated on plan of care and expected duration. Pain level reassessed. Patient is alert, oriented x 3, equal unlabored respirations, skin warm/dry/pink. Vital Signs: 12:29 BP 149 / 64; Pulse 100; Resp 17; Temp 98.2; Pulse Ox 97% ; Weight 63.5 kg; Height 5 ft. ll1 5 in. ; Pain 0/10; 13:15 BP 124 / 54; Pulse 93; Resp 17; Pulse Ox 96% on R/A; nj1 12:29 Body Mass Index 23.30 (63.50 kg, 165.1 cm) ll1 12:29 Pain Scale: Adult ll1 ED Course: 12:19 Patient arrived in ED. mr 12:19 Steve Salazar MD is Private Physician. mr 12:20 Lindsey Mckeon [facility]-C [facility] sb4 12:20 Jude Sheppard MD is Attending Physician. sb4 12:24 Arm band placed on Patient placed in an exam room, on a stretcher. ll1 12:30 Triage completed. ll1 12:40 Riya Otoole RN is Primary Nurse. nj1 12:40 Patient has correct armband on for positive identification. Bed in low position. Call nj1 light in reach. 12:40 Provided Education on: call light, fall precautions. nj1 13:07 Steve Salazar MD is Referral Physician. sb4 13:17 No provider procedures requiring assistance completed. Patient did not have IV access nj1 during this emergency room visit. Administered Medications: No medications were administered Medication: 13:17 VIS not applicable for this client. nj1 Outcome: 13:07 Discharge ordered by . sb4 13:23 Discharged to home ambulatory, nj1 13:23 Condition: stable 13:23 Discharge instructions given to patient, Instructed on discharge instructions, follow up and referral plans. Demonstrated understanding of instructions, follow-up care, 13:24 Patient left the ED. nj1 Signatures: Kell Koehler, Reg Reg mr Andre Arias RN RN ll1 Lindsey Mckeon PA-C PA-C sb4 Riya Otoole RN RN nj1 Corrections: (The following items were deleted from the chart) 12:25 12:25 PSHx: section; ll1 ll1
[2023-01-29 13:28] VITALS: TEMP 98.2
[2023-01-29 13:29] VITALS: BP 124/54; O2SAT 96
== END 2023-01-29 13:24 | disposition home or self-care (01) ==
LOC: ER 12:15
DX: J06.9 Acute upper respiratory infection, unspecified (principal); Z20.822 Contact with and (suspected) exposure to COVID-19; E11.9 Type 2 diabetes mellitus without complications
CPT/HCPCS: 36415; 87804; 87811

== ENCOUNTER 2025-01-06 10:23 | Emergency (ER) | payer OTHER ==
[2025-01-06] MEDS ORDERED: FLUORESCEIN SODIUM 1 MG/WRAP ONE (10:30)
[2025-01-06] MEDS ORDERED: TETRACAINE HCL 0.5% 4ML OPTH ONE (10:30)
[2025-01-06 11:14] LABS: Absolute Lymphocytes (CBC) 1.8 K/uL (0.7-4.9); Hematocrit 39.8 % (36.0-45.0); Hemoglobin 13.6 g/dL (12.0-15.0); MCH 30.9 pg (27.0-35.0); MCHC 34.2 g/dL (32.0-36.0); MCV 90.2 fL (80-100); MPV 8.9 fL (7.6-11.3); Nucleated RBC Absolute Count 0.0 (0-0); Nucleated Red Blood Cells % 0.0 % (0-0); RBC Red Blood Cell Count 4.41 M/uL (3.86-4.86); White Blood Count 11.70 thou/uL (4.3-10.9)
[2025-01-06] MEDS ORDERED: ONDANSETRON 4 MG/2 ML VIAL ONE (11:37)
[2025-01-06] MEDS ORDERED: KETOROLAC 30 MG/ML INJ ONE (11:37)
[2025-01-06] MEDS ORDERED: MORPHINE 4 MG/ML SYR ONE (11:37)
[2025-01-06 11:49] LABS: Anion Gap 10.4 mEq/L (5.0-15.0); BUN Blood Urea Nitrogen 31.0 mg/dL (7-18); Glucose Level 153.0 mg/dL (74-106); Potassium 4.4 mEq/L (3.5-5.1); Troponin High Sensitivity 8.1 pg/mL (<58.9)
--- NOTE | 2025-01-06 12:40 | RAD REPORT ---
EXAMINATION: ONE VIEW CHEST XR CLINICAL INDICATION: CHEST PAIN TECHNIQUE: Frontal chest projection is submitted. Examination is limited by patient positioning and t echnique. COMPARISON: 01/03/2025 FINDINGS: The lungs are diffusely emphysematous but grossly clear. The heart is upper limit of normal in size. No displaced fractures identified. IMPRESSION: COPD without an acute process suspected.
--- NOTE | 2025-01-06 12:51 | EDPHYS ---
Physician Documentation [facility] Name: Keren Hinton Age: 79 yrs Sex: Female : 1945 Arrival Date: 01/06/2025 Time: 10:23 Bed 7 Private MD: ED Physician Daisha Flannery HPI: 01/06 17:16 This 79 yrs old Female presents to ER via Ambulatory with complaints of Eye dr5 Pain, Headache, Shortness Of Breath. 17:16 Onset: The symptoms/episode began/occurred acutely. Patient is a 79-year-old female dr5 with history of colon and bladder cancer, diabetes, lymphoma, sarcoma, thyroid problem, hypertension coming in with left eye pain and redness that started this morning. Patient reports that the eye pain is described as itchy and watery. Patient also reports intermittent cough. Patient reports she has a doctor's appointment today with Dr. Salazar. 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 - Infectious Disease History:: Denies. - Social history:: Smoking status: Patient denies any tobacco usage or history of. ROS: 17:16 Constitutional: as per hpi dr5 Exam: 17:16 Constitutional: This is a well developed, well nourished patient who is awake, alert, dr5 and in no acute distress. Head/Face: Normocephalic, atraumatic. ENT: Nares patent. No nasal discharge, no septal abnormalities noted. Tympanic membranes are normal and external auditory canals are clear. Oropharynx with no redness, swelling, or masses, exudates, or evidence of obstruction, uvula midline. Mucous membranes moist. Neck: Trachea midline, no thyromegaly or masses palpated, and no cervical lymphadenopathy. Supple, full range of motion without nuchal rigidity, or vertebral point tenderness. No Meningismus. Chest/axilla: Normal chest wall appearance and motion. Nontender with no deformity. No lesions are appreciated. Cardiovascular: Regular rate and rhythm with a normal S1 and S2. Normal PMI, no JVD. No pulse deficits. Respiratory: Lungs have equal breath sounds bilaterally, clear to auscultation. No rales, rhonchi or wheezes noted. No increased work of breathing, no retractions or nasal flaring. Back: No spinal tenderness. No costovertebral tenderness. Full range of motion. Skin: Warm, dry with normal turgor. Normal color with no rashes, no lesions, and no evidence of cellulitis. MS/ Extremity: Pulses equal, no cyanosis. Neurovascular intact. Full, normal range of motion. Neuro: Awake and alert, GCS 15, oriented to person, place, time, and situation. Cranial nerves II-XII grossly intact. Motor strength 5/5 in all extremities. Sensory grossly intact. Cerebellar exam normal. Normal gait. 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 17:16 ENT: External ear(s): are unremarkable, no acute changes, Ear canal(s): are normal, no acute changes, TM's: are normal, no acute changes, Nose: is normal, Vital Signs: 10:38 BP 155 / 83; Pulse 104; Resp 19; Temp 97(O); Pulse Ox 100% on R/A; Weight 57.15 kg; ss Height 5 ft. 5 in. ; 11:43 BP 173 / 87; Pulse 88; Resp 18; Pulse Ox 100% on R/A; mb9 12:57 BP 160 / 75; Pulse 85; Resp 18; Pulse Ox 100% on R/A; mb9 10:38 Body Mass Index 20.97 (57.15 kg, 165.1 cm) ss MDM: 10:26 Medical Screening Exam initiated dr5 17:16 Differential diagnosis: Corneal abrasion of Corneal ulcer of left eye. Foreign body in dr5 Acute iritis of left eye. Allergic conjunctivitis in dehydration. Data reviewed: vital signs, nurses notes, lab test result(s), cardiac enzymes, troponin i, CBC, white blood cell count, hemoglobin, hematocrit, platelets, electrolytes, sodium, potassium, chloride, serum bicarbonate, BUN, creatinine, serum glucose, EKG, radiologic studies. Consideration of Admission/Observation Escalation of care including admission/observation considered. Considered admission if patient had elevated troponin.. I considered the following discharge prescriptions or medication management in the emergency department I discussed and recommended Over The Counter medications, Medications were administered in the Emergency Department. See MAR. Independent interpretation of the following test(s) in the Emergency Department X-Ray: My interpretation is Independent interpretation of xray does not reveal pneumonia.. Care significantly affected by the following chronic conditions: Diabetes, Cancer, Thyroid. Care significantly affected by the following Social Determinants of Health: Poor access to healthcare and/or lack of insurance, Poor access to transportation, Problems related to employment. Counseling: I had a detailed discussion with the patient and/or guardian regarding the historical points, exam findings, and any diagnostic results supporting the discharge/admit diagnosis, the presence of at least one elevated blood pressure reading (>120/80) during this emergency department visit, lab results, radiology results, the need for outpatient follow up, for definitive care, an opthalmologist, a family practitioner, to return to the emergency department if symptoms worsen or persist or if there are any questions or concerns that arise at home. Medication response: Response to treatment: the patient's symptoms have resolved after treatment. Special discussion: I discussed with the patient/guardian in detail that at this point there is no indication for admission to the hospital. It is understood, however, that if the symptoms persist or worsen the patient needs to return immediately for re-evaluation. Based on the history and exam findings, there is no indication for further emergent testing or inpatient evaluation. I discussed with the patient/guardian the need to see the opthamologist for further evaluation of the symptoms. ED course: Patient feels better after medication. Will have patient follow up with primary care doctor. All questions answered. STRICT ER PRECAUTIONS given.. 01/06 11:11 Order name: Basic Metabolic Panel; Complete Time: 11:51 EDHI 01/06 11:11 Order name: Troponin High Sensitivity; Complete Time: 11:51 EDHI 01/06 11:11 Order name: CBC with Automated Diff; Complete Time: 11:30 EDHI 01/06 10:30 Order name: XRAY Chest (1 view); Complete Time: 12:45 01/06 10:30 Order name: EKG; Complete Time: 10:30 01/06 10:30 Order name: Cardiac monitoring; Complete Time: 10:56 01/06 10:30 Order name: EKG - Nurse/Tech; Complete Time: :56 01/06 10:30 Order name: IV Saline Lock; Complete Time: 10: dr5 01/06 10:30 Order name: Labs collected and sent; Complete Time: : dr5 01/06 10:30 Order name: O2 Per Protocol; Complete Time: : dr5 01/06 10:30 Order name: O2 Sat Monitoring; Complete Time: 10:57 dr5 EC:50 Rate is 90 beats/min. Rhythm is regular. QRS Jackson is Normal. MO interval is normal at dr5 166 msec. QRS interval is normal at 106 msec. QT interval is normal at 414 msec. Clinical impression: Normal ECG and No evidence of ischemia. Administered Medications: 10:44 Drug: Fluorescein Ophthalmic Strip 1 strip Ophthalmic once Route: Ophthalmic; Site: mb9 both eyes; 10:45 Drug: Tetracaine Ophthalmic Drops 0.5 % 1 drops Ophthalmic once Route: Ophthalmic; mb9 Site: both eyes; 11:37 Drug: morphine IVP or IV 4 mg IVP once over 4 mins Route: IVP; Infused Over: 4 mins; mb9 Site: left antecubital; 12:58 Follow up: Response: No adverse reaction mb9 11:40 Drug: Ondansetron IVP 4 mg IVP once; over 2 minutes Route: IVP; Site: left antecubital; mb9 12:58 Follow up: Response: No adverse reaction mb9 11:43 Drug: Ketorolac IVP 15 mg IVP once Route: IVP; Site: left antecubital; mb9 12:58 Follow up: Response: No adverse reaction mb9 Disposition Summary: 01/06/25 12:50 Discharge Ordered Notes: Location: Home dr5 Condition: Stable dr5 Diagnosis - COPD/ Chronic obstructive pulmonary disease, unspecified dr5 - Unspecified scleritis, left eye dr5 - Unspecified acute conjunctivitis, left eye dr5 Followup: dr5 - With: Emergency Department - When: As needed - Reason: Worsening of condition Followup: dr5 - With: Private Physician - When: 1 - 2 days - Reason: Recheck today's complaints, Continuance of care, Re-evaluation by your physician Discharge Instructions: - Discharge Summary Sheet dr5 - Bacterial Conjunctivitis, Adult dr5 - Living With COPD dr5 Forms: - Medication Reconciliation Form dr5 - Antibiotic Education dr5 - Patient Portal Instructions dr5 - Leadership Thank You Letter dr5 Prescriptions: - Ocuflox 0.3 % Ophthalmic drops - instill 2 drops OPHTHALMIC route every 6 hours for 7 days; 30 milliliter; dr5 Refills: 0, Product Selection Permitted - Zithromax Z-Emilio 250 mg Oral Tablet - take 1 tablet ORAL route as directed for 5 days Day 1 - take two (2) tablets dr5 one time. Day 2, 3, 4 , 5 take one (1) tablet once daily.; 6 tablet; Refills: 0, Product Selection Permitted Signatures: Dispatcher [employer] EDMS Monique Hull RN RN ss Kell Taylor RN RN mb9 Rasta Johnson, STORE CUSTODIAN-C STORE CUSTODIAN-Cdr5 Corrections: (The following items were deleted from the chart) 12:45 10:30 BASIC METABOLIC PANEL+C.LAB.BRZ ordered. EDMS EDMS 12:46 10:30 CBC+H.LAB.BRZ ordered. EDMS EDMS 12:47 10:30 Troponin High Sensitivity+C.LAB.BRZ ordered. EDMS EDMS
--- NOTE | 2025-01-06 12:51 | ER ---
Nurse's Notes [facility] Name: Keren Hinton Age: 79 yrs Sex: Female : 1945 Arrival Date: 01/06/2025 Time: 10:23 Bed 7 Private MD: Diagnosis: COPD/ Chronic obstructive pulmonary disease, unspecified;Unspecified scleritis, left eye;Unspecified acute conjunctivitis, left eye Presentation: 01/06 10:38 Chief complaint: Patient states: L eye pain that began this morning. PT also reports ss intermittent SOB. Coronavirus screen: Client denies travel out of the [place] in the last 14 days. Ebola Screen: Patient denies exposure to infectious person. Patient denies travel to an Ebola-affected area in the 21 days before illness onset. The patient denies any loss of vision. Initial Sepsis Screen: Does the patient meet any 2 criteria? No. Patient's initial sepsis screen is negative. Does the patient have a suspected source of infection? No. Patient's initial sepsis screen is negative. Risk Assessment: Do you want to hurt yourself or someone else? Patient reports no desire to harm self or others. Onset of symptoms was January 06, 2025. 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 - Infectious Disease History:: Denies. - Social history:: Smoking status: Patient denies any tobacco usage or history of. Screenin:59 [facility] ED Fall Risk Assessment (Adult) History of falling in the last 3 months, mb9 including since admission No falls in past 3 months (0 pts) Confusion or Disorientation No (0 pts) Intoxicated or Sedated No (0 pts) Impaired Gait No (0 pts) Mobility Assist Device Used No (0 pt) Altered Elimination No (0 pt) Score/Fall Risk Level 0 - 2 = Low Risk Oriented to surroundings, Maintained a safe environment, Educated pt \T\ family on fall prevention, incl call for assistance when getting out of bed. Abuse screen: Denies threats or abuse. Nutritional screening: No deficits noted. Tuberculosis screening: No symptoms or risk factors identified. Assessment: 10:57 General: Appears in no apparent distress. Behavior is calm, cooperative, appropriate mb9 for age. Pain: Complains of pain in left eye and head Pain does not radiate. Pain currently is 8 out of 10 on a pain scale. Quality of pain is described as throbbing, Pain began suddenly, Is continuous. Neuro: Vu Agitation-Sedation Scale (RASS): 0 - Alert and Calm Level of Consciousness is awake, alert, obeys commands, Oriented to person, place, time, situation, Appropriate for age Otr Tanker Truck Driver are equal bilaterally Moves all extremities. Gait is steady, Speech is normal, Facial symmetry appears normal, Pupils are PERRLA, Intact. Cardiovascular: Heart tones S1 S2 present Patient's skin is warm and dry. Respiratory: Airway is patent Respiratory effort is even, unlabored, Respiratory pattern is regular, symmetrical, Breath sounds are clear bilaterally. GI: No signs and/or symptoms were reported involving the gastrointestinal system. : No signs and/or symptoms were reported regarding the genitourinary system. EENT: No signs and/or symptoms were reported regarding the EENT system. Derm: No signs and/or symptoms reported regarding the dermatologic system. Musculoskeletal: Range of motion: intact in all extremities. 12:48 Reassessment: Patient and/or family updated on plan of care and expected duration. Pain mb9 level reassessed. Patient is alert, oriented x 3, equal unlabored respirations, skin warm/dry/pink. Patient states feeling better. Patient states symptoms have improved. Vital Signs: 10:38 BP 155 / 83; Pulse 104; Resp 19; Temp 97(O); Pulse Ox 100% on R/A; Weight 57.15 kg; ss Height 5 ft. 5 in. ; 11:43 BP 173 / 87; Pulse 88; Resp 18; Pulse Ox 100% on R/A; mb9 12:57 BP 160 / 75; Pulse 85; Resp 18; Pulse Ox 100% on R/A; mb9 10:38 Body Mass Index 20.97 (57.15 kg, 165.1 cm) ED Course: 10:25 Patient arrived in ED. cj3 10:26 Rasta Johnson FNP-C [facility]. dr5 10:26 Daisha Flannery MD is Attending Physician. dr5 10:34 Kell Taylor, LANIE is Primary Nurse. mb9 10:34 Arm band placed on. mb9 10:40 Triage completed. ss 10:58 Initial lab(s) drawn, by me, sent to lab. Inserted saline lock: 20 gauge in left mb9 antecubital area, using aseptic technique. Blood collected. Flushed with 10 mL NS. 10:58 EKG done, by ED staff, reviewed by Rasta DORANTES. mb9 10:59 Placed in gown. Bed in low position. Call light in reach. Side rails up X 1. Provided mb9 Education on: press call light if needing anything. Client placed on continuous cardiac and pulse oximetry monitoring. NIBP monitoring applied. full fashioned garment knitter on. 10:59 No provider procedures requiring assistance completed. mb9 12:38 XRAY Chest (1 view) In Process Unspecified. EDMS 12:58 IV discontinued, intact, bleeding controlled, No redness/swelling at site. Pressure mb9 dressing applied. Administered Medications: 10:44 Drug: Fluorescein Ophthalmic Strip 1 strip Ophthalmic once Route: Ophthalmic; Site: mb9 both eyes; 10:45 Drug: Tetracaine Ophthalmic Drops 0.5 % 1 drops Ophthalmic once Route: Ophthalmic; mb9 Site: both eyes; 11:37 Drug: morphine IVP or IV 4 mg IVP once over 4 mins Route: IVP; Infused Over: 4 mins; mb9 Site: left antecubital; 12:58 Follow up: Response: No adverse reaction mb9 11:40 Drug: Ondansetron IVP 4 mg IVP once; over 2 minutes Route: IVP; Site: left antecubital; mb9 12:58 Follow up: Response: No adverse reaction mb9 11:43 Drug: Ketorolac IVP 15 mg IVP once Route: IVP; Site: left antecubital; mb9 12:58 Follow up: Response: No adverse reaction mb9 Medication: 10:59 VIS not applicable for this client. mb9 Outcome: 12:50 Discharge ordered by . dr5 12:58 Discharged to home via wheelchair, mb9 12:58 Condition: stable 12:58 Discharge instructions given to patient, family, Instructed on discharge instructions, follow up and referral plans. Demonstrated understanding of instructions, follow-up care, medications, Prescriptions given X 2, 13:12 Patient left the ED. mb9 Signatures: Dispatcher [employer] EDMonique Smiley RN RN ss Kell Taylor RN RN mb9 Rasta Johnson, BEAN VINER-C BEAN VINER-Cdr5 Nydia Naidu 3
[2025-01-06 13:20] VITALS: TEMP 97; O2SAT 100
[2025-01-06 13:23] VITALS: BP 160/75
== END 2025-01-06 13:12 | disposition home or self-care (01) ==
LOC: ER 10:23
DX: J44.9 Chronic obstructive pulmonary disease, unspecified (principal); H15.002 Unspecified scleritis, left eye; H10.32 Unspecified acute conjunctivitis, left eye
CPT/HCPCS: 93005; 85025; 80048; 36415; 84484; 71045; 96375; 96374; 99285; J2405